=== PATIENT | female | born 1950 | race Caucasian/White ===

== ENCOUNTER 2020-05-02 13:56 | Outpatient (CLI) | payer OTHER, SELFPAY ==
--- NOTE | ~2020-05-02 | XR_ITS ---
EXAMINATION: XR chest 2V DATE: 05/02/2020 14:22 INDICATION: Acute on chronic systolic diastolic heart failure TECHNIQUE: PA and lateral views of the chest were obtained. COMPARISON: Chest radiograph dated 09/13/2017 FINDINGS: Cardiomegaly with double density projecting over the right heart consistent with right atrial enlarge ment. Mild increased interstitial pattern in the bilateral lower lung zones consistent with mild pulm onary edema. No pleural effusion or pneumothorax. Mild thoracic spondylosis. IMPRESSION: 1. Congestive heart failure with cardiomegaly and mild pulmonary edema at the lung bases. Reviewed, dictated and finalized at location A. IMPRESSION: 1. Congestive heart failure with cardiomegaly and mild pulmonary edema at the l yao bases.
== END 2020-05-02 13:57 | disposition home or self-care (01) ==
PROVIDERS: PCP Nurse Practitioner Family; Visit Provider Nurse Practitioner Adult Health
DX: I50.33 Acute on chronic diastolic (congestive) heart failure (principal); J81.1 Chronic pulmonary edema
CPT/HCPCS: 71046

== ENCOUNTER 2020-05-08 11:51 | Outpatient (CLI) | payer OTHER, SELFPAY ==
[2020-05-08 12:37] LABS: Anion Gap 6 mmol/L (8-16); Blood Urea Nitrogen 42 mg/dL (7-18); Calcium 9.4 mg/dL (8.5-10.1); Carbon Dioxide 38 mmol/L (21-32); Chloride 87 mmol/L (98-108); Estimated Glomerular Filt Rate 29; Glucose 108 mg/dL (70-99); Osmolality Calculated 283 mOsm/kg (285-295); Potassium 3.4 mmol/L (3.5-5.1); Sodium 131 mmol/L (136-145)
== END 2020-05-08 11:52 | disposition home or self-care (01) ==
LOC: CHSLAB 11:52
PROVIDERS: PCP Nurse Practitioner Family; Visit Provider Nurse Practitioner Adult Health
DX: I50.33 Acute on chronic diastolic (congestive) heart failure (principal)
CPT/HCPCS: 36415; 80048

== ENCOUNTER 2020-07-04 14:31 | Outpatient (CLI) | payer OTHER, SELFPAY ==
[2020-07-04 15:18] LABS: Blood Urea Nitrogen 53 mg/dL (7-18); Calcium 9.6 mg/dL (8.5-10.1); Carbon Dioxide 33 mmol/L (21-32); Estimated Glomerular Filt Rate 28; Glucose 102 mg/dL (70-99)
[2020-07-04 15:28] LABS: Chloride 73 mmol/L (98-108); Potassium 3.9 mmol/L (3.5-5.1)
[2020-07-04 15:34] LABS: Anion Gap 8 mmol/L (8-16); Osmolality Calculated 252 mOsm/kg (285-295); Sodium 114 mmol/L (136-145)
== END 2020-07-04 14:32 | disposition home or self-care (01) ==
LOC: CHSLAB 14:33
PROVIDERS: PCP Nurse Practitioner Family; Visit Provider Nurse Practitioner Adult Health
DX: I50.32 Chronic diastolic (congestive) heart failure (principal)
CPT/HCPCS: 36415; 80048

== ENCOUNTER 2020-07-04 17:44 | Inpatient (IN) | payer OTHER, MEDICARE, SELFPAY ==
--- NOTE | ~2020-07-04 | XR_ITS ---
EXAMINATION: XR chest 2V DATE: 07/05/2020 14:11 INDICATION: Shortness of breath, congestive heart failure TECHNIQUE: Frontal and lateral views of the chest are obtained COMPARISON: 05/02/2020 FINDINGS: Cardiomegaly is noted. There is a mild diffuse interstitial pattern. There is no pleural ef fusion or pneumothorax. Multiple old right-sided rib fractures are noted. There is mild thoracic spon dylosis. IMPRESSION: 1. Cardiomegaly with mild pulmonary edema. Reviewed, dictated and finalized at location A.
[2020-07-04 19:21] VITALS: BP 85/47; PULSE 62; RESP 17; TEMP 36.9; O2SAT 94
--- NOTE | 2020-07-04 19:42 | ED.RECABL ---
HPI - Recheck/Abnormal Lab/Rx General Chief Complaint: Recheck/Abnormal Lab/Rx Stated Complaint: LOW POTASSIUM LEVEL Time Seen by Provider: 07/04/20 19:27 History of Present Illness HPI narrative: 70 yo female w/ h/o CHF, COPD, A-fib presents to the ED from home for abnormal labs. She had routine labs dne earlier today and was called at [facility] and told to come in. She reports that she was told her potassium was low. On review of the chart her potassium was normal, but her sodium was 119. She reports that she has been more fatigued recently. She has also had poor appetite. She has chronic SOB. No recent medicaiton changes. Related Data Home Medications Medication Instructions Recorded Confirmed apixaban 5 mg tablet 5 mg PO BID 08/15/19 03/27/20 aspirin 81 mg tablet,delayed 81 mg PO DAILY 08/15/19 03/27/20 release ergocalciferol (vitamin D2) 1,250 50,000 unit PO WEEKLY 08/15/19 03/27/20 mcg (50,000 unit) capsule furosemide 40 mg tablet 40 mg PO BID 08/15/19 03/27/20 lisinopril 40 mg tablet 40 mg PO DAILY 08/15/19 03/27/20 omeprazole 20 mg capsule,delayed 20 mg PO DAILY 08/15/19 03/27/20 release rosuvastatin 40 mg tablet 40 mg PO DAILY 08/15/19 03/27/20 Allergies Allergy/AdvReac Type Severity Reaction Status Date / Time codeine Allergy Intermediate Verified 09/22/17 09:01 iron Allergy Intermediate Verified 08/20/18 10:38 Review of Systems Review of Systems: All systems reviewed & are unremarkable except as noted in HPI and below Constitutional: Constitutional: Reports fatigue and Denies fever(s) Cardiovascular: Cardiovascular: Denies chest pain Respiratory: Respiratory: Reports dyspnea Gastrointestinal: Gastrointestinal: Denies abdominal pain and Reports nausea Genitourinary: Genitourinary: Denies dysuria Neurologic: Reports weakness PMFSH Past Medical History Medical History (Updated 07/04/20 @ 20:54 by Kulwinder Solorzano MD) Atrial fibrillation CHF (congestive heart failure) COPD (chronic obstructive pulmonary disease) HTN (hypertension) Hyperlipemia Overweight Psoriasis Sleep apnea Tobacco dependence Surgical History Surgical History Hx of cholecystectomy Hx of hysterectomy Hx of tonsillectomy Family History Family History Mother Family history of chronic obstructive pulmonary disease Other Family history of arthritis Family history of heart disease in male family member before age 55 Hypertension Social History Social History Smoking status: Current every day smoker Alcohol intake: current Exam Const: General: no acute distress, alert and ill appearing chronically Orientation/consciousness: patient oriented x3 HENMT: Head: normal to inspection Eyes: Pupils: Equal, round and reactive pupils present Resp: Effort & Inspection: normal respiratory effort Auscultation: rhonchi Cardio: Rate: regular rate Rhythm: abnormal rhythm irregularly irregular GI: Inspection: non-distended Other: soft, nontender Skin: General skin exam: normal color Neuro: General: patient oriented x3, moves all extremities, no focal motor deficits and CN's II-XI intact bilaterally Speech: normal speech Extrem: General: edema (1 + BLE) Course Vital Signs Vital signs: Vital Signs Temperature 36.9 C 07/04/20 19:21 Pulse Rate 62 07/04/20 19:21 Respiratory Rate 17 07/04/20 19:21 Blood Pressure 85/47 L 07/04/20 19:21 Pulse Oximetry 94 07/04/20 19:21 Temperature 36.9 C 07/04/20 19:21 Pulse Rate 62 07/04/20 19:21 Respiratory Rate 17 07/04/20 19:21 Blood Pressure 85/47 L 07/04/20 19:21 Pulse Oximetry 94 07/04/20 19:21 MDM - Recheck/Abnormal Lab/Rx MDM Narrative Medical decision making narrative: Hyponatremia versus lab error. Maybe overdiuresis. She has severe and slightly wors
[2020-07-04 19:56] LABS: Basophils Percent Auto 0.3 % (0.2-1.2); Eosinophils Absolute Auto 0.1 K/mm3 (0-0.3); Eosinophils Percent Auto 0.7 % (0-4.4); Immature Granulocyte Absolute 0.06 K/mm3 (0.00-0.031); Immature Granulocyte Percent A 0.4 % (0-0.5); Lymphocytes Absolute Auto 2.32 K/mm3 (0.9-3.2); Lymphocytes Percent Auto 17.1 % (18.3-44.2); Mean Corpuscular HGB Conc 36.1 g/dl (32-36); Mean Corpuscular Hemoglobin 30.7 pg (26-34); Mean Corpuscular Volume 84.9 fl (80-100); Mean Platelet Volume 9.8 fl (7.4-10.4); Monocytes Absolute Auto 0.8 K/mm3 (0.1-0.6); Monocytes Percent Auto 5.7 % (2.6-8.5); Neutrophils Absolute Auto 10.3 K/mm3 (1.3-6.7); Neutrophils Percent Auto 75.8 % (45.5-73.1); Platelet Count Result 284 k/mm3 (150-375); Red Blood Count 4.24 M/mm3 (4.2-5.4); Red Cell Distribution Width 13.7 % (11.5-14.5); White Blood Count 13.6 K/mm3 (4.5-10.0)
[2020-07-04 20:09] LABS: Alanine Aminotransferase 15 U/L (4-35); Albumin Level 4.7 g/dL (3.5-5.1); Alkaline Phosphatase 175 U/L (38-126); Anion Gap 12 mmol/L (8-16); Aspartate Amino Transferase 20 U/L (14-36); Bilirubin,Total 0.9 mg/dL (0.2-1.3); Blood Urea Nitrogen 56 mg/dL (7-17); Calcium 9.6 mg/dL (8.4-10.2); Carbon Dioxide 37 mmol/L (22-30); Chloride 64 mmol/L (98-107); Estimated CRCL calculation 28 ml/min; Estimated Glomerular Filt Rate 30; Glucose 93 mg/dL (65-105); Potassium 3.4 mmol/L (3.4-5.0); Sodium 113 mmol/L (137-145)
[2020-07-04 20:11] LABS: INR 1.2; Prothrombin Time 15.1 Seconds (11.1-14.7)
[2020-07-04 20:12] LABS: Partial Thromboplastin Time 36.5 SECONDS (22.3-36.8)
[2020-07-04 21:04] LABS: Amorphous Sediment Urine Few; Bacteria Urine Trace /hpf; Mucus Urine Rare /lpf; RBC Urine 0-2 /hpf (0-2); Squamous Epithelial Cell Urine Few /hpf (Few); WBC Urine 0-3 /hpf
[2020-07-04 21:05] LABS: Add Urine Microscopic? YES; Appearance Urine Clear (Clear); Bilirubin Urine Negative (Negative); Blood Urine Negative (Negative); Color Urine Yellow (Yellow); Glucose Urine UA Negative (Negative); Ketones Urine Negative (Negative); Leukocyte Esterase Ur Negative LEU/UL (Negative); Nitrate Urine Negative (Negative); Protein Urine Negative (Negative); Specific Grav Ur 1.009 (1.001-1.035); Urobilinogen Urine Negative mg/dL (<2.0)
[2020-07-04] MEDS: SODIUM CHLORIDE 3% 500 ML 30 ML IV CONT (21:08)
[2020-07-04] MEDS: SODIUM CHLORIDE 0.9% IV 500 ML 999 ML IV CONT (21:14)
--- NOTE | 2020-07-04 22:13 | PM.IMHP ---
H&P: HPI History of Present Illness Date/Time: 07/04/20 22:13 Chief complaint: Hyponatremia Narrative: This is a pleasant 70 year old female with known CHF, paroxysmal atrial fibrillation on eliquis, and COPD among other comorbidities who presented to the hospital secondary to abnormal labs. The patient was called by her PCP after routine labs demonstrated a low sodium and was sent to our ER for further care. She reports that she has felt very tired recently. She denies any seizure activity, passing out, or other new symptoms at this time. She has been on Lasix for a long time and reports that several months ago her dose was changed from once a day to twice a day. She denies any recent medication changes or new medications. She also denies any previous history of signficant hyponatremia. She reports drinking large amounts of water daily. The patient was found to have a serum sodium of 113 mmol/dl tonight. She was started on hypertonic saline by ER provider. She denies any fever, cough, chills, headache, chest pain, abdominal pain, dysuria, hematuria, vomiting, diarrhea, or focal neurological symptoms. Review of Systems Review of Systems: All systems reviewed & are unremarkable except as noted in HPI and below PMFSH Past Medical History Medical History Atrial fibrillation CHF (congestive heart failure) COPD (chronic obstructive pulmonary disease) HTN (hypertension) Hyperlipemia Overweight Psoriasis Sleep apnea Tobacco dependence Surgical History Surgical History Hx of cholecystectomy Hx of hysterectomy Hx of tonsillectomy Family History Family History Mother Family history of chronic obstructive pulmonary disease Other Family history of arthritis Family history of heart disease in male family member before age 55 Hypertension Social History Social History Years smoked: 53 Smoking status: Current every day smoker Alcohol intake: current Gender identity (if verbalized by the patient): Female Spiritual care concerns: No Meds Home Medications and Allergies Home Medications Medication Instructions Recorded Confirmed Type apixaban 5 mg tablet 5 mg PO BID 08/15/19 07/04/20 History aspirin 81 mg tablet,delayed 81 mg PO DAILY 08/15/19 07/04/20 History release ergocalciferol (vitamin D2) 1,250 50,000 unit PO WEEKLY 08/15/19 07/04/20 History mcg (50,000 unit) capsule furosemide 40 mg tablet 40 mg PO BID 08/15/19 07/04/20 History lisinopril 40 mg tablet 20 mg PO DAILY 08/15/19 07/04/20 History omeprazole 20 mg capsule,delayed 20 mg PO DAILY 08/15/19 07/04/20 History release rosuvastatin 40 mg tablet 40 mg PO DAILY 08/15/19 07/04/20 History fluticasone propionate 50 1 spray NASAL DAILY #9.9 ml 03/27/20 07/04/20 Rx mcg/actuation nasal spray,suspension albuterol sulfate 2.5 mg INHALATION Q4-6H PRN #30 ml 03/28/20 07/04/20 Rx budesonide 0.5 mg/2 mL suspension 0.5 mg INHALATION BID #120 ml 03/28/20 07/04/20 Rx for nebulization formoterol fumarate 20 mcg/2 mL 2 ml INHALATION BID #120 ml 03/28/20 07/04/20 Rx solution for nebulization albuterol sulfate 90 mcg/actuation 1 inhalation INHALATION Q4H PRN 04/20/20 07/04/20 Rx aerosol inhaler #6.7 gm benzonatate 200 mg capsule 200 mg PO BID PRN #20 cap 04/25/20 07/04/20 Rx fexofenadine 60 mg tablet 60 mg PO Q12H #60 tablet 04/25/20 07/04/20 Rx colchicine 0.6 mg capsule 0.6 mg PO .PRN PRN #10 cap 05/01/20 07/04/20 Rx montelukast 10 mg tablet 10 mg PO DAILY #90 tablet 06/05/20 07/04/20 Rx ascorbate calcium (vitamin C) 500 mg PO DAILY 07/04/20 07/04/20 History nebivolol 40 mg PO DAILY 07/04/20 07/04/20 History potassium chloride 20 meq PO DAILY 07/04/20 07/04/20 History Allergies Allergy/AdvReac Type Severity Reaction Status D
--- NOTE | 2020-07-04 23:00 | ADMGEN ---
This patient, Flakita Palomares, was admitted to 3 Medical Room 340-01. Patient/family oriented to hospital policies and general routines including ID bracelet, bed and alarms, visiting hours, pain management, procedures, bathroom and other care routines, personal items, smoking policy, room service/diet, and visiting hours. Valuables list has been completed. Information on how to activate the Rapid Response Team has been discussed. Patient/Family are encouraged to report perceived risks to care and to ask questions if they do not understand what they are told or what they should do.
[2020-07-04 23:07] VITALS: BMI 34.9
[2020-07-04 23:10] VITALS: BP 101/53; PULSE 78; RESP 18; TEMP 36.5; O2SAT 95; BMI 34.1
[2020-07-05] VITALS (11 sets, daily range): BP systolic 88–106; BP diastolic 45–60; PULSE 53–68; RESP 16–18; TEMP 35.8–36.4; O2SAT 93–97
[2020-07-05 00:59] LABS: Anion Gap 8 mmol/L (8-16); Blood Urea Nitrogen 53 mg/dL (7-17); Carbon Dioxide 36 mmol/L (22-30); Chloride 70 mmol/L (98-107); Estimated CRCL calculation 27 ml/min; Estimated Glomerular Filt Rate 30; Glucose 90 mg/dL (65-105); Potassium 2.9 mmol/L (3.4-5.0); Sodium 114 mmol/L (137-145)
[2020-07-05 04:23] LABS: Basophils Percent Auto 0.4 % (0.2-1.2); Eosinophils Absolute Auto 0.1 K/mm3 (0-0.3); Eosinophils Percent Auto 1.3 % (0-4.4); Hematocrit 32.8 % (37.0-47.0); Hemoglobin 11.8 g/dL (12.0-15.0); Immature Granulocyte Absolute 0.04 K/mm3 (0.00-0.031); Immature Granulocyte Percent A 0.4 % (0-0.5); Lymphocytes Absolute Auto 2.48 K/mm3 (0.9-3.2); Lymphocytes Percent Auto 23.5 % (18.3-44.2); Mean Corpuscular Hemoglobin 30.5 pg (26-34); Mean Corpuscular Volume 84.8 fl (80-100); Mean Platelet Volume 10.1 fl (7.4-10.4); Monocytes Absolute Auto 0.8 K/mm3 (0.1-0.6); Monocytes Percent Auto 7.2 % (2.6-8.5); Neutrophils Absolute Auto 7.1 K/mm3 (1.3-6.7); Neutrophils Percent Auto 67.2 % (45.5-73.1); Platelet Count Result 269 k/mm3 (150-375); Red Blood Count 3.87 M/mm3 (4.2-5.4); Red Cell Distribution Width 13.7 % (11.5-14.5); White Blood Count 10.6 K/mm3 (4.5-10.0)
[2020-07-05 05:00] LABS: Anion Gap 8 mmol/L (8-16); Blood Urea Nitrogen 55 mg/dL (7-17); Calcium 8.9 mg/dL (8.4-10.2); Carbon Dioxide 35 mmol/L (22-30); Chloride 73 mmol/L (98-107); Estimated CRCL calculation 29 ml/min; Estimated Glomerular Filt Rate 32; Glucose 88 mg/dL (65-105); Potassium 2.8 mmol/L (3.4-5.0); Sodium 116 mmol/L (137-145)
--- NOTE | 2020-07-05 05:30 | PC.NURSE ---
Phone call to pharmacist to confirm compatibility of 3% sodium and 40 meq potassium chloride. I was able to confirm that they are compatible and are able to run concurrently together at the rates prescribed.
[2020-07-05] MEDS: BUDESONIDE RESPULE NEB 0.5 MG/2 ML AMP INHALATION ×2 (07:38→22:41)
[2020-07-05] MEDS: ASCORBIC ACID 500 MG TABLET PO (09:47)
[2020-07-05] MEDS: APIXABAN 5 MG TABLET PO ×2 (09:47→16:19)
[2020-07-05] MEDS: MONTELUKAST SODIUM 10 MG TABLET PO (09:47)
[2020-07-05] MEDS: FLUTICASONE PROPIONATE 0.05% NA SPR 16 GM BTL (*BKC) 1 SPRAY NASAL (09:47)
[2020-07-05] MEDS: PANTOPRAZOLE SOD SESQUIHYDRATE 20 MG TAB PO (09:47)
[2020-07-05] MEDS: lisinopriL 20 MG TABLET PO (09:47)
[2020-07-05] MEDS: ASPIRIN 81 MG ENTERIC TABLET PO (09:47)
[2020-07-05] MEDS: LORATADINE 5 MG TABLET PO ×2 (09:47→20:44)
[2020-07-05 09:50] LABS: Anion Gap 7 mmol/L (8-16); Blood Urea Nitrogen 57 mg/dL (7-17); Carbon Dioxide 36 mmol/L (22-30); Chloride 76 mmol/L (98-107); Estimated CRCL calculation 29 ml/min; Estimated Glomerular Filt Rate 32; Glucose 110 mg/dL (65-105); Potassium 3.6 mmol/L (3.4-5.0); Sodium 119 mmol/L (137-145)
[2020-07-05] MEDS: NEBIVOLOL HCL 5 MG TABLET 40 MG PO (09:51)
[2020-07-05] MEDS: ROSUVASTATIN 10 MG TABLET 40 MG PO (09:51)
--- NOTE | 2020-07-05 12:33 | PM.IMPN ---
Progress Note: A&P Assessment and Plan (1) Acute hyponatremia: Code(s): E87.1 - Hypo-osmolality and hyponatremia Status: Acute Assessment and Plan: Acute isotonic hyponatremia. Patient on Lasix chronically. Cr not much different from baseline but BUN/Cr ratio >20 to suggest dehydration. COuld be related to her lung disease. Consider neoplasm given her hx. No focal weakness to suggest REHAB SPEC etiology. Treated with fluid restriction and 3% saline. Sodium has improved slowly 120. No urine Na but UA showing SG 1.009 - related to diuretics?. Diuretics on hold. Continue to check BMP Q4H to ensure slow gradual rise in Na level. Check CXR and consider CT chest given her weight loss. Nephrology consulted and appreciate their help. CXR showing cardiomegaly with mild pulmonary edema. Remaiins of room air. Not on IV fluids. Monitor for now. Lasix when able. (2) Leukocytosis: Qualifiers: Leukocytosis type: unspecified Qualified Code(s): D72.829 - Elevated white blood cell count, unspecified Code(s): D72.829 - Elevated white blood cell count, unspecified Status: Acute Assessment and Plan: WBC mildly elevated at 13.6 but better on repeat. Continue to monitor CBCd. (3) COPD (chronic obstructive pulmonary disease): Qualifiers: COPD type: unspecified COPD Qualified Code(s): J44.9 - Chronic obstructive pulmonary disease, unspecified Code(s): J44.9 - Chronic obstructive pulmonary disease, unspecified Status: Chronic Assessment and Plan: Few expiratory rhonchi. Remains on room air. Continue bronchodilators. (4) HTN (hypertension): Qualifiers: Hypertension type: unspecified Qualified Code(s): I10 - Essential (primary) hypertension Code(s): I10 - Essential (primary) hypertension Status: Chronic Assessment and Plan: BP has been soft. Tristan contnue Bystolic but hold Lisinopril. She may be dehydrated from the Lasix. Monitor blood pressure. (5) Hyperlipemia: Qualifiers: Hyperlipidemia type: unspecified Qualified Code(s): E78.5 - Hyperlipidemia, unspecified Code(s): E78.5 - Hyperlipidemia, unspecified Status: Chronic Assessment and Plan: LFTs okay. Continue Crestor. (6) CHF (congestive heart failure): Qualifiers: Heart failure chronicity: chronic Heart failure type: unspecified Qualified Code(s): I50.9 - Heart failure, unspecified Code(s): I50.9 - Heart failure, unspecified Status: Chronic Assessment and Plan: Appears euvolemic clinically. On Lasix at home 40mg BID. Continue to monitor fluid status. Hold diuretics secondary to hyponatremia. Resume when able. (7) Atrial fibrillation: Qualifiers: Atrial fibrillation type: paroxysmal Qualified Code(s): I48.0 - Paroxysmal atrial fibrillation Code(s): I48.91 - Unspecified atrial fibrillation Status: Chronic Assessment and Plan: Rate controlled. Continue Bystolic. Continue Eliquis. (8) Tobacco dependence: Code(s): F17.200 - Nicotine dependence, unspecified, uncomplicated Status: Acute Assessment and Plan: Patient educated about the benefits of smoking cessation (9) DVT prophylaxis: Code(s): Z29.9 - Encounter for prophylactic measures, unspecified Status: Acute Assessment and Plan: Eliquis Subjective Date/time seen: 07/05/20 12:33 Interval history: Date of service 07/05 70yo female with COPD, CHF and AFib here for abnormal labs noted in the outpatient with a Na of 119. In the ED, her sodium was 113. Slept okay last night. Up walkiing to the BR and in the room today. Denies weakness. Does not feel confused. Still smokes 4 cig/day. Cough productive of daly sputum. No n/v. No CP. No hemoptysis. Exam Narrative: Exam Narrative: AF 97.6 106/45 67 18 93% ra Gen - NARD lying semi
[2020-07-05 12:41] LABS: Anion Gap 8 mmol/L (8-16); Blood Urea Nitrogen 52 mg/dL (7-17); Calcium 9.2 mg/dL (8.4-10.2); Carbon Dioxide 35 mmol/L (22-30); Chloride 77 mmol/L (98-107); Estimated CRCL calculation 29 ml/min; Estimated Glomerular Filt Rate 32; Glucose 111 mg/dL (65-105); Potassium 3.7 mmol/L (3.4-5.0); Sodium 120 mmol/L (137-145)
--- NOTE | 2020-07-05 13:26 | PCNSR ---
On 07/05/20, the student, Netta Moore, provided care and completed [facility] documentation on this patient. I have reviewed the student's documentation and agree with the findings.
--- NOTE | 2020-07-05 17:26 | PM.CNNEP ---
Assessment and Plan Assessment and plan (1) Hyponatremia: Code(s): E87.1 - Hypo-osmolality and hyponatremia Status: Acute Assessment and Plan: apparently an acute issue thought to be secondary to diuretics (lasix) s/p 3% saline and on fluid restriction goal of therapy is a change of 6 - 9mmol/L over a 24 hours period of time follow repeat sodium levels to complete work-up - check serum/urine osmo, cortisol, TSH, SPE and UPE (2) Chronic kidney disease, stage 3: Code(s): N18.30 - Chronic kidney disease, stage 3 unspecified Status: Acute Assessment and Plan: creatinine seems to run ~ 1.5 - 1.8mg/dl presumably due to HTN, CHF, need for diuretics follow the trend (3) COPD (chronic obstructive pulmonary disease): Qualifiers: COPD type: unspecified COPD Qualified Code(s): J44.9 - Chronic obstructive pulmonary disease, unspecified Code(s): J44.9 - Chronic obstructive pulmonary disease, unspecified Status: Chronic Assessment and Plan: known history and continue to smoke continue bronchodilators supportive therap (4) HTN (hypertension): Qualifiers: Hypertension type: unspecified Qualified Code(s): I10 - Essential (primary) hypertension Code(s): I10 - Essential (primary) hypertension Status: Chronic Assessment and Plan: running on the low side BP medications on hold follow trend (5) CHF (congestive heart failure): Qualifiers: Heart failure chronicity: chronic Heart failure type: unspecified Qualified Code(s): I50.9 - Heart failure, unspecified Code(s): I50.9 - Heart failure, unspecified Status: Chronic Assessment and Plan: appears compensated/euvolemic follow trend Will continue to follow. History of Present Illness Reason for Consult Consult date: 07/05/20 Reason for consult: hyponatremia Chief Complaint Chief complaint: Hyponatremia History of Present Illness Narrative: The patient is a 70 year old female with a past medical history as outlined below who presented to [facility] ER for evaluation of abnormal labs. The patient was called by her PCP after routine labs demonstrated a low sodium and was directed to come to the hospital for further evaluation. Aside from the low sodium, her only other complaint was that of significant fatigue and weakness. She reports no neurological symptoms, seizure activity, syncope, tremor...etc. recently. She does report that several months ago her lasix was changed from once a day to twice a day. She denies any recent medication changes or new medications. She also reports drinking large amounts of water daily. She denies any fever, cough, chills, headache, chest pain, abdominal pain, dysuria, hematuria, vomiting, diarrhea, or focal neurological symptoms. Workup and evaluation in the emergency room demonstrated the patient to be hemodynamically stable although her blood pressure was little bit on the soft side. Routine blood test confirmed the presence of her hyponatremia with a sodium level 113 with no other significant findings other than a mild leukocytosis. She was given some normal saline and subsequent started on 3% saline by the ER provider in mid to the hospital for further evaluation and therapy. Since her admission, her sodium level has been slowly rising and and has since been discontinued off the 3% saline. She is currently on a fluid restriction and remains otherwise asymptomatic at the time of my visit. Renal consultation was requested due to her acute hyponatremia. From review of her records, her sodium level has fluctuated from 131-140 in the last few months up until this hospitalization/admission. She has never had a history or problems with hyponatremia in the past and she otherwise gives no other complaints voiced. Her sodium level has improved with interventions to date and she otherwise appears
[2020-07-05 17:33] LABS: Anion Gap 8 mmol/L (8-16); Blood Urea Nitrogen 51 mg/dL (7-17); Calcium 9.6 mg/dL (8.4-10.2); Carbon Dioxide 35 mmol/L (22-30); Chloride 78 mmol/L (98-107); Estimated CRCL calculation 31 ml/min; Estimated Glomerular Filt Rate 34; Glucose 98 mg/dL (65-105); Potassium 3.7 mmol/L (3.4-5.0); Sodium 121 mmol/L (137-145)
[2020-07-05 21:04] LABS: Anion Gap 8 mmol/L (8-16); Blood Urea Nitrogen 48 mg/dL (7-17); Calcium 9.2 mg/dL (8.4-10.2); Carbon Dioxide 33 mmol/L (22-30); Chloride 78 mmol/L (98-107); Estimated CRCL calculation 33 ml/min; Estimated Glomerular Filt Rate 37; Glucose 95 mg/dL (65-105); Potassium 3.8 mmol/L (3.4-5.0); Sodium 119 mmol/L (137-145)
[2020-07-06] VITALS (13 sets, daily range): BP systolic 90–186; BP diastolic 50–98; PULSE 50–78; RESP 14–18; TEMP 36.2–36.8; O2SAT 94–100
[2020-07-06 01:19] LABS: Creatinine Urine 46.4 mg/dL; Total Protein Urine Random 13 mg/dL
[2020-07-06 01:20] LABS: Sodium 120 mmol/L (137-145)
[2020-07-06 01:47] LABS: Sodium Urine Random 33 meq/L
[2020-07-06 05:57] LABS: Basophils Absolute Auto 0.1 K/mm3 (0.0-0.1); Basophils Percent Auto 0.5 % (0.2-1.2); Eosinophils Absolute Auto 0.2 K/mm3 (0-0.3); Eosinophils Percent Auto 1.7 % (0-4.4); Hematocrit 32.6 % (37.0-47.0); Hemoglobin 11.7 g/dL (12.0-15.0); Immature Granulocyte Absolute 0.02 K/mm3 (0.00-0.031); Immature Granulocyte Percent A 0.2 % (0-0.5); Lymphocytes Absolute Auto 2.44 K/mm3 (0.9-3.2); Lymphocytes Percent Auto 23.9 % (18.3-44.2); Mean Corpuscular HGB Conc 35.9 g/dl (32-36); Mean Corpuscular Hemoglobin 30.7 pg (26-34); Mean Corpuscular Volume 85.6 fl (80-100); Mean Platelet Volume 9.8 fl (7.4-10.4); Monocytes Absolute Auto 0.7 K/mm3 (0.1-0.6); Monocytes Percent Auto 6.6 % (2.6-8.5); Neutrophils Absolute Auto 6.9 K/mm3 (1.3-6.7); Neutrophils Percent Auto 67.1 % (45.5-73.1); Platelet Count Result 271 k/mm3 (150-375); Red Blood Count 3.81 M/mm3 (4.2-5.4); Red Cell Distribution Width 13.8 % (11.5-14.5); White Blood Count 10.2 K/mm3 (4.5-10.0)
[2020-07-06 06:11] LABS: Albumin Level 4.1 g/dL (3.5-5.1); Anion Gap 8 mmol/L (8-16); Blood Urea Nitrogen 46 mg/dL (7-17); Calcium 9.3 mg/dL (8.4-10.2); Carbon Dioxide 32 mmol/L (22-30); Chloride 81 mmol/L (98-107); Estimated CRCL calculation 36 ml/min; Estimated Glomerular Filt Rate 41; Glucose 89 mg/dL (65-105); Magnesium 2.2 mg/dL (1.6-2.3); Phosphorus 3.5 mg/dL (2.5-4.5); Potassium 3.3 mmol/L (3.4-5.0); Sodium 121 mmol/L (137-145)
[2020-07-06 07:16] LABS: Thyroid Stimulating Hormone Reflex 0.807 uIU/mL (0.465-4.68)
[2020-07-06] MEDS: POTASSIUM CHLORIDE 20 MEQ TABLET 40 MEQ PO (09:04)
[2020-07-06] MEDS: LORATADINE 5 MG TABLET PO ×2 (09:06→21:13)
[2020-07-06] MEDS: FLUTICASONE PROPIONATE 0.05% NA SPR 16 GM BTL (*BKC) 1 SPRAY NASAL (09:06)
[2020-07-06] MEDS: MONTELUKAST SODIUM 10 MG TABLET PO (09:06)
[2020-07-06] MEDS: ASPIRIN 81 MG ENTERIC TABLET PO (09:06)
[2020-07-06] MEDS: ROSUVASTATIN 10 MG TABLET 40 MG PO (09:07)
[2020-07-06] MEDS: APIXABAN 5 MG TABLET PO ×2 (09:07→17:22)
[2020-07-06] MEDS: NEBIVOLOL HCL 5 MG TABLET 20 MG PO (09:07)
[2020-07-06] MEDS: PANTOPRAZOLE SOD SESQUIHYDRATE 20 MG TAB PO (09:07)
[2020-07-06] MEDS: ASCORBIC ACID 500 MG TABLET PO (09:07)
[2020-07-06] MEDS: BUDESONIDE RESPULE NEB 0.5 MG/2 ML AMP INHALATION ×2 (09:29→19:02)
[2020-07-06 13:11] LABS: Sodium 121 mmol/L (137-145)
[2020-07-06] MEDS: SODIUM CHLORIDE 3% 240 ML 80 ML IV CONT (15:42)
--- NOTE | 2020-07-06 15:49 | P.PNNP_ITS ---
Progress Note: A&P Assessment and Plan (1) Hyponatremia: Code(s): E87.1 - Hypo-osmolality and hyponatremia Status: Acute Assessment and Plan: * apparently an acute issue * thought to be secondary to diuretics (lasix) - other risk factors include -- known COPD -- ongoing smoking -- poor oral intake [employer] -- nausea * s/p 3% saline on admission and on fluid restriction * goal of therapy is a change of 6 - 9mmol/L over a 24 hours period of time (which has been maintained) * since sodium appears to have stalled - will give another round of 3% saline * urine lytes more suggestive of volume depletion though * follow repeat sodium levels * TSH, cortisol, CXR results noted * follow-up check serum/urine osmo, SPE and UPE (2) Chronic kidney disease, stage 3: Code(s): N18.30 - Chronic kidney disease, stage 3 unspecified Status: Acute Assessment and Plan: * creatinine seems to run ~ 1.5 - 1.8mg/dl * presumably due to HTN, CHF, need for diuretics * follow the trend (3) COPD (chronic obstructive pulmonary disease): Qualifiers: COPD type: unspecified COPD Qualified Code(s): J44.9 - Chronic obstructive pulmonary disease, unspecified Code(s): J44.9 - Chronic obstructive pulmonary disease, unspecified Status: Chronic Assessment and Plan: * known history and continue to smoke * continue bronchodilators * supportive therapy and smoking cessation education (4) HTN (hypertension): Qualifiers: Hypertension type: unspecified Qualified Code(s): I10 - Essential (primary) hypertension Code(s): I10 - Essential (primary) hypertension Status: Chronic Assessment and Plan: * running on the low side * BP medications on hold * follow trend (5) CHF (congestive heart failure): Qualifiers: Heart failure chronicity: chronic Heart failure type: unspecified Qualified Code(s): I50.9 - Heart failure, unspecified Code(s): I50.9 - Heart failure, unspecified Status: Chronic Assessment and Plan: * appears compensated/euvolemic * follow trend Will continue to follow. Subjective Date/time seen: 07/06/20 15:49 Appears to be doing reasonably well; sodium has improved (and not overcorrected) but seems to have plateaued ~ 121 mmol/L; eating and drinking okay (reportedly not prior to admission and had nausea as well); no apparent idstress voiced; no events overnight or earlier this AM. Exam Narrative: Exam Narrative: General: WD/WN female in NAD Heart: normal S1 and S2; no rub Lungs: clear to auscultation Abdomen: soft, nontender, nondistended, positive bowel sounds Extremities: no cyanosis or clubbing; no edema Skin: warm and dry Objective Data Vital Signs Vital Signs: Vital Signs Temp Pulse Resp BP Pulse Ox 07/06/20 14:00 36.2 C L 68 18 104/50 L 100 07/06/20 12:00 50 L 07/06/20 10:54 55 L 90/58 L 07/06/20 09:07 56 L 07/06/20 08:00 56 L 07/06/20 07:42 62 100/56 L 07/06/20 05:52 36.8 C 78 14 186/98 H 98 07/06/20 04:00 60 07/06/20 00:00 67 07/05/20 22:43 53 L 18 07/05/20 20:00 57 L 07/05/20 19:49 36.2 C L 58 L 16 88/48 L 97 07/05/20 16:00 65 Intake/Output
--- NOTE | 2020-07-06 15:49 | PM.PNNEP ---
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 s/p 3% saline on admission and on fluid restriction goal of therapy is a change of 6 - 9mmol/L over a 24 hours period of time (which has been maintained) since sodium appears to have stalled - will give another round of 3% saline urine lytes more suggestive of volume depletion though follow repeat sodium levels TSH, cortisol, CXR results noted follow-up check serum/urine osmo, SPE and UPE (2) Chronic kidney disease, stage 3: Code(s): N18.30 - Chronic kidney disease, stage 3 unspecified Status: Acute Assessment and Plan: creatinine seems to run ~ 1.5 - 1.8mg/dl presumably due to HTN, CHF, need for diuretics follow the trend (3) COPD (chronic obstructive pulmonary disease): Qualifiers: COPD type: unspecified COPD Qualified Code(s): J44.9 - Chronic obstructive pulmonary disease, unspecified Code(s): J44.9 - Chronic obstructive pulmonary disease, unspecified Status: Chronic Assessment and Plan: known history and continue to smoke continue bronchodilators supportive therapy and smoking cessation education (4) HTN (hypertension): Qualifiers: Hypertension type: unspecified Qualified Code(s): I10 - Essential (primary) hypertension Code(s): I10 - Essential (primary) hypertension Status: Chronic Assessment and Plan: running on the low side BP medications on hold follow trend (5) CHF (congestive heart failure): Qualifiers: Heart failure chronicity: chronic Heart failure type: unspecified Qualified Code(s): I50.9 - Heart failure, unspecified Code(s): I50.9 - Heart failure, unspecified Status: Chronic Assessment and Plan: appears compensated/euvolemic follow trend Will continue to follow. Subjective Date/time seen: 07/06/20 15:49 Appears to be doing reasonably well; sodium has improved (and not overcorrected) but seems to have plateaued ~ 121 mmol/L; eating and drinking okay (reportedly not prior to admission and had nausea as well); no apparent idstress voiced; no events overnight or earlier this AM. Exam Narrative: Exam Narrative: General: WD/WN female in NAD Heart: normal S1 and S2; no rub Lungs: clear to auscultation Abdomen: soft, nontender, nondistended, positive bowel sounds Extremities: no cyanosis or clubbing; no edema Skin: warm and dry Objective Data Vital Signs Vital Signs: Vital Signs Temp Pulse Resp BP Pulse Ox 07/06/20 14:00 36.2 C L 68 18 104/50 L 100 07/06/20 12:00 50 L 07/06/20 10:54 55 L 90/58 L 07/06/20 09:07 56 L 07/06/20 08:00 56 L 07/06/20 07:42 62 100/56 L 07/06/20 05:52 36.8 C 78 14 186/98 H 98 07/06/20 04:00 60 07/06/20 00:00 67 07/05/20 22:43 53 L 18 07/05/20 20:00 57 L 07/05/20 19:49 36.2 C L 58 L 16 88/48 L 97 07/05/20 16:00 65 Intake/Output Intake/Output: Intake & Output 07/03/20 07/04/20 07/05/20 07/06/20 23:59 23:59 23:59 23:59 Intake Total 500 1380 1310 Output Total 650 3550 Balance 500 730 -2240 Meds/Results Medications: Active Medications Generic Name Dose Route Start Last Admin Trade Name Freq PRN Reason Stop Dose Admin Acetaminophen 650 mg 07/04/20 22:06 Acetaminophen 325 Mg Tablet PO Q4H PRN Mild Pain (1-3) or Fever Albuterol 1 puff 07/05/20 05:12 Albuterol Sulfate (*Sp) Aerosol 1 Puff INHALATION Q4H PRN shortness of breath Apixaban 5 mg 07/05/20 09:00 07/06/20 09:07 A
--- NOTE | 2020-07-06 16:11 | PM.IMPN ---
Progress Note: A&P Assessment and Plan (1) Acute hyponatremia: Code(s): E87.1 - Hypo-osmolality and hyponatremia Status: Acute Assessment and Plan: Acute isotonic hyponatremia. Patient on Lasix chronically. Cr not much different from baseline but BUN/Cr ratio >20 to suggest dehydration. She has been having n/v and complains of lightheadedness to suggest she is volume depleted. Nausea also could be a waste collection driver of her hyponatremia itself. CXR showing cardiomegaly with mild pulmonary edema. 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 Treated with fluid restriction and 3% saline with Na level climbed to 121 but has stalled. Urine Na 33. Diuretics on hold. Repeat 3% saline infusion ordered. Nephrology consulted and appreciate their help. Continue to monitor sodium closely. (2) Leukocytosis: Qualifiers: Leukocytosis type: unspecified Qualified Code(s): D72.829 - Elevated white blood cell count, unspecified Code(s): D72.829 - Elevated white blood cell count, unspecified Status: Acute Assessment and Plan: WBC mildly elevated at 13.6 but better on repeat. Continue to monitor CBCd. (3) COPD (chronic obstructive pulmonary disease): Qualifiers: COPD type: unspecified COPD Qualified Code(s): J44.9 - Chronic obstructive pulmonary disease, unspecified Code(s): J44.9 - Chronic obstructive pulmonary disease, unspecified Status: Chronic Assessment and Plan: Few expiratory rhonchi. Remains on room air. Continue bronchodilators. (4) HTN (hypertension): Qualifiers: Hypertension type: unspecified Qualified Code(s): I10 - Essential (primary) hypertension Code(s): I10 - Essential (primary) hypertension Status: Chronic Assessment and Plan: BP remains soft. Lisinopril on hold. Bystolic cut to 20mg but still soft so will cut it back to 10mg. She may be dehydrated from the Lasix and the n/v prior to admission. Monitor blood pressure. (5) Hyperlipemia: Qualifiers: Hyperlipidemia type: unspecified Qualified Code(s): E78.5 - Hyperlipidemia, unspecified Code(s): E78.5 - Hyperlipidemia, unspecified Status: Chronic Assessment and Plan: LFTs okay. Continue Crestor. (6) CHF (congestive heart failure): Qualifiers: Heart failure chronicity: chronic Heart failure type: unspecified Qualified Code(s): I50.9 - Heart failure, unspecified Code(s): I50.9 - Heart failure, unspecified Status: Chronic Assessment and Plan: Pedal edema noted but could be chronic related to her being out of bed more. On Lasix at home 40mg BID. Continue to monitor fluid status. Lasix on hold secondary to hyponatremia. Resume when okay with nephrology and BP better. Negative fluid balance but not on diuretics. (7) Atrial fibrillation: Qualifiers: Atrial fibrillation type: paroxysmal Qualified Code(s): I48.0 - Paroxysmal atrial fibrillation Code(s): I48.91 - Unspecified atrial fibrillation Status: Chronic Assessment and Plan: Rate controlled. Continue Bystolic but lower dose due to soft BP. Continue Eliquis. Stop tele. (8) Tobacco dependence: Code(s): F17.200 - Nicotine dependence, unspecified, uncomplicated Status: Acute Assessment and Plan: Patient educated about the benefits of smoking cessation (9) DVT prophylaxis: Code(s): Z29.9 - Encounter for prophylactic measures, unspecified Status: Acute Assessment and Plan: Eliquis Subjective Date/time seen: 07/06/20 16:11 Interval history: Date of service 07/06 70yo female with COPD, CHF and AFib here for abnormal labs noted in the outpatient with a Na of 119. In the ED, her sodium was 113. She was feeling lightheaded over the past few days prior to admission. She was having n/v also for about 1 week before admission. Slept well las
[2020-07-06 20:16] LABS: Sodium 126 mmol/L (137-145)
[2020-07-07] VITALS (9 sets, daily range): BP systolic 99–114; BP diastolic 59–65; PULSE 58–73; RESP 12–18; TEMP 36.1–36.6; O2SAT 91–94
[2020-07-07 00:11] LABS: Sodium 124 mmol/L (137-145)
[2020-07-07 06:32] LABS: Albumin Level 4.2 g/dL (3.5-5.1); Anion Gap 10 mmol/L (8-16); Blood Urea Nitrogen 39 mg/dL (7-17); Calcium 9.7 mg/dL (8.4-10.2); Carbon Dioxide 30 mmol/L (22-30); Chloride 88 mmol/L (98-107); Estimated CRCL calculation 38 ml/min; Estimated Glomerular Filt Rate 45; Glucose 92 mg/dL (65-105); Magnesium 2.2 mg/dL (1.6-2.3); Phosphorus 3.5 mg/dL (2.5-4.5); Potassium 4.1 mmol/L (3.4-5.0); Sodium 128 mmol/L (137-145)
[2020-07-07] MEDS: FLUTICASONE PROPIONATE 0.05% NA SPR 16 GM BTL (*BKC) 1 SPRAY NASAL (09:30)
[2020-07-07] MEDS: ROSUVASTATIN 10 MG TABLET 40 MG PO (09:31)
[2020-07-07] MEDS: NEBIVOLOL HCL 5 MG TABLET 10 MG PO (09:31)
[2020-07-07] MEDS: MONTELUKAST SODIUM 10 MG TABLET PO (09:33)
[2020-07-07] MEDS: APIXABAN 5 MG TABLET PO ×2 (09:33→16:36)
[2020-07-07] MEDS: PANTOPRAZOLE SOD SESQUIHYDRATE 20 MG TAB PO (09:33)
[2020-07-07] MEDS: ASCORBIC ACID 500 MG TABLET PO (09:33)
[2020-07-07] MEDS: ASPIRIN 81 MG ENTERIC TABLET PO (09:33)
[2020-07-07] MEDS: BUDESONIDE RESPULE NEB 0.5 MG/2 ML AMP INHALATION ×2 (09:44→20:45)
[2020-07-07] MEDS: LORATADINE 5 MG TABLET PO ×2 (10:03→22:08)
--- NOTE | 2020-07-07 10:25 | P.PNNP_ITS ---
Progress Note: A&P Assessment and Plan (1) Hyponatremia: Code(s): E87.1 - Hypo-osmolality and hyponatremia Status: Acute Assessment and Plan: * apparently an acute issue * TSH okay. * Cortisol level is 11. Will check Cortrosyn stim test. * Chest x-ray shows no significant pulmonary process. 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 consider saline * s/p 3% saline on admission and on fluid restriction * Sodium level correcting well with the 3%. * see how the sodium level is this afternoon. This may continue to Correct since she is off her diuretics. (2) Chronic kidney disease, stage 3: Code(s): N18.30 - Chronic kidney disease, stage 3 unspecified Status: Acute Assessment and Plan: * creatinine seems to run ~ 1.5 - 1.8mg/dl * presumably due to HTN, CHF, need for diuretics * creatinine is improved (3) COPD (chronic obstructive pulmonary disease): Qualifiers: COPD type: unspecified COPD Qualified Code(s): J44.9 - Chronic obstructive pulmonary disease, unspecified Code(s): J44.9 - Chronic obstructive pulmonary disease, unspecified Status: Chronic Assessment and Plan: * known history and continue to smoke * continue bronchodilators * supportive therapy and smoking cessation education (4) HTN (hypertension): Qualifiers: Hypertension type: unspecified Qualified Code(s): I10 - Essential (primary) hypertension Code(s): I10 - Essential (primary) hypertension Status: Chronic Assessment and Plan: * running on the low side * BP medications on hold * follow trend (5) CHF (congestive heart failure): Qualifiers: Heart failure type: unspecified Heart failure chronicity: chronic Qualified Code(s): I50.9 - Heart failure, unspecified Code(s): I50.9 - Heart failure, unspecified Status: Chronic Assessment and Plan: * appears compensated/euvolemic * follow trend Subjective Date/time seen: 07/07/20 10:25 Interval history: Patient is alert and sitting at the side of the bed. She feels better eating well. On a fluid restriction Review of Systems Cardiovascular: Cardiovascular: Reports no additional cardiovascular complaints Respiratory: Respiratory: Reports no additional respiratory complaints Gastrointestinal: Gastrointestinal: Reports no additional gastrointestinal complaints Genitourinary: Genitourinary: Reports no additional female genitourinary complaints Exam Narrative: Exam Narrative: General: WD/WN female in NAD Heart: normal S1 and S2; no rub Lungs: clear bilaterally Abdomen: soft, nontender, nondistended, positive bowel sounds Extremities: no cyanosis or clubbing; no edema Skin: no rash Objective Data Vital Signs Vital Signs: Vital Signs - 24 hr 07/06/20 10:54 07/06/20 12:00 07/06/20 14:00 Temperature 36.2 C L Pulse Rate 55 L 50 L 68 Respiratory Rate 18 Blood Pressure 90/58 L 104/50 L Pulse Oximetry 100 07/06/20 16:00 07/06/20 19:03 07/06/20 19:08 Temperature
--- NOTE | 2020-07-07 10:25 | PM.PNNEP ---
Progress Note: A&P Assessment and Plan (1) Hyponatremia: Code(s): E87.1 - Hypo-osmolality and hyponatremia Status: Acute Assessment and Plan: apparently an acute issue TSH okay. Cortisol level is 11. Will check Cortrosyn stim test. Chest x-ray shows no significant pulmonary process. 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 consider saline s/p 3% saline on admission and on fluid restriction Sodium level correcting well with the 3%. see how the sodium level is this afternoon. This may continue to Correct since she is off her diuretics. (2) Chronic kidney disease, stage 3: Code(s): N18.30 - Chronic kidney disease, stage 3 unspecified Status: Acute Assessment and Plan: creatinine seems to run ~ 1.5 - 1.8mg/dl presumably due to HTN, CHF, need for diuretics creatinine is improved (3) COPD (chronic obstructive pulmonary disease): Qualifiers: COPD type: unspecified COPD Qualified Code(s): J44.9 - Chronic obstructive pulmonary disease, unspecified Code(s): J44.9 - Chronic obstructive pulmonary disease, unspecified Status: Chronic Assessment and Plan: known history and continue to smoke continue bronchodilators supportive therapy and smoking cessation education (4) HTN (hypertension): Qualifiers: Hypertension type: unspecified Qualified Code(s): I10 - Essential (primary) hypertension Code(s): I10 - Essential (primary) hypertension Status: Chronic Assessment and Plan: running on the low side BP medications on hold follow trend (5) CHF (congestive heart failure): Qualifiers: Heart failure type: unspecified Heart failure chronicity: chronic Qualified Code(s): I50.9 - Heart failure, unspecified Code(s): I50.9 - Heart failure, unspecified Status: Chronic Assessment and Plan: appears compensated/euvolemic follow trend Subjective Date/time seen: 07/07/20 10:25 Interval history: Patient is alert and sitting at the side of the bed. She feels better eating well. On a fluid restriction Review of Systems Cardiovascular: Cardiovascular: Reports no additional cardiovascular complaints Respiratory: Respiratory: Reports no additional respiratory complaints Gastrointestinal: Gastrointestinal: Reports no additional gastrointestinal complaints Genitourinary: Genitourinary: Reports no additional female genitourinary complaints Exam Narrative: Exam Narrative: General: WD/WN female in NAD Heart: normal S1 and S2; no rub Lungs: clear bilaterally Abdomen: soft, nontender, nondistended, positive bowel sounds Extremities: no cyanosis or clubbing; no edema Skin: no rash Objective Data Vital Signs Vital Signs: Vital Signs - 24 hr 07/06/20 10:54 07/06/20 12:00 07/06/20 14:00 Temperature 36.2 C L Pulse Rate 55 L 50 L 68 Respiratory Rate 18 Blood Pressure 90/58 L 104/50 L Pulse Oximetry 100 07/06/20 16:00 07/06/20 19:03 07/06/20 19:08 Temperature Pulse Rate 63 60 59 L Respiratory Rate 18 18 Blood Pressure Pulse Oximetry 07/06/20 20:03 07/07/20 06:34 07/07/20 08:00 Temperature 36.4 C 36.6 C Pulse Rate 74 64 73 Respiratory Rate 18 18 18 Blood Pressure 112/58 L 99/59 L Pulse Oximetry 94 91 91 07/07/20 09:31 Temperature Pulse Rate 73 Respiratory Rate Blood Pressure Pulse Oximetry Intake/Output Intake/Output: Intake & Output 07/04/20 07/05/20 07/06/20 07/07/20 23:59 23:59 23:59 23:59 Intake Total 500 1380 1790 360 Output Total 650 3850 750 Balance 500 490 -8173 -390 Meds/Results Medications: Active Medications Generic Name Dose Route
[2020-07-07] MEDS: COSYNTROPIN 0.25 MG/ML VIAL IV PUSH (11:20)
--- NOTE | 2020-07-07 15:13 | PM.IMPN ---
Progress Note: A&P Assessment and Plan (1) Acute hyponatremia: Code(s): E87.1 - Hypo-osmolality and hyponatremia Status: Acute Assessment and Plan: Acute isotonic hyponatremia. Patient on Lasix chronically. Cr not much different from baseline but BUN/Cr ratio >20 to suggest dehydration. She has been having n/v and complains of lightheadedness to suggest she is volume depleted. Nausea also could be a spotter driver of her hyponatremia itself. CXR showing cardiomegaly with mild pulmonary edema. 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 Treated with fluid restriction and 3% saline on admission with Na level climbed to 121 but then it stalled. Urine Na 33. Diuretics on hold. Repeat 3% saline infusion ordered on 07/06. Sodium cimbed to 128 now. Nephrology consulted and appreciate their help. Continue to monitor sodium closely. (2) Leukocytosis: Qualifiers: Leukocytosis type: unspecified Qualified Code(s): D72.829 - Elevated white blood cell count, unspecified Code(s): D72.829 - Elevated white blood cell count, unspecified Status: Acute Assessment and Plan: WBC mildly elevated at 13.6 but better on repeat. Continue to monitor CBCd periodically. (3) COPD (chronic obstructive pulmonary disease): Qualifiers: COPD type: unspecified COPD Qualified Code(s): J44.9 - Chronic obstructive pulmonary disease, unspecified Code(s): J44.9 - Chronic obstructive pulmonary disease, unspecified Status: Chronic Assessment and Plan: Few expiratory rhonchi. Remains on room air. Continue bronchodilators. (4) HTN (hypertension): Qualifiers: Hypertension type: unspecified Qualified Code(s): I10 - Essential (primary) hypertension Code(s): I10 - Essential (primary) hypertension Status: Chronic Assessment and Plan: BP remains soft but stable. Lisinopril on hold. Bystolic cut to 10mg daily. She may be dehydrated from the Lasix and the n/v prior to admission. Monitor blood pressure. (5) Hyperlipemia: Qualifiers: Hyperlipidemia type: unspecified Qualified Code(s): E78.5 - Hyperlipidemia, unspecified Code(s): E78.5 - Hyperlipidemia, unspecified Status: Chronic Assessment and Plan: LFTs okay. Continue Crestor. (6) CHF (congestive heart failure): Qualifiers: Heart failure type: unspecified Heart failure chronicity: chronic Qualified Code(s): I50.9 - Heart failure, unspecified Code(s): I50.9 - Heart failure, unspecified Status: Chronic Assessment and Plan: Pedal edema noted yesterday but better today. Was on Lasix at home 40mg BID. Lasix on hold secondary to hyponatremia. Resume when okay with nephrology and BP better. Negative fluid balance but not on diuretics. Continue to monitor fluid status. (7) Atrial fibrillation: Qualifiers: Atrial fibrillation type: paroxysmal Qualified Code(s): I48.0 - Paroxysmal atrial fibrillation Code(s): I48.91 - Unspecified atrial fibrillation Status: Chronic Assessment and Plan: Rate controlled. Continue Bystolic but at lower dose due to soft BP. Continue Eliquis. (8) Tobacco dependence: Code(s): F17.200 - Nicotine dependence, unspecified, uncomplicated Status: Acute Assessment and Plan: Patient educated about the benefits of smoking cessation (9) DVT prophylaxis: Code(s): Z29.9 - Encounter for prophylactic measures, unspecified Status: Acute Assessment and Plan: Eliquis Subjective Date/time seen: 07/07/20 15:13 Interval history: Date of service 07/07 70yo female with COPD, CHF and AFib here for abnormal labs noted in the outpatient with a Na of 119. In the ED, her sodium was 113. Eating okay. No CP or SOB> Walking to the BR and in the halls. Requesting discharge. Feels much better. Patient states today that she had
[2020-07-07 17:17] LABS: Sodium 128 mmol/L (137-145)
[2020-07-07] MEDS: SODIUM CHLORIDE 0.9% IV 1,000 ML 75 ML IV CONT (18:26)
[2020-07-07] MEDS: ACETAMINOPHEN 325 MG TABLET 650 MG PO ×2 (18:30→22:09)
[2020-07-08 05:11] VITALS: BP 104/51; PULSE 70; RESP 18; TEMP 36.7; O2SAT 95
[2020-07-08 06:54] LABS: Albumin Level 3.9 g/dL (3.5-5.1); Anion Gap 4 mmol/L (8-16); Blood Urea Nitrogen 28 mg/dL (7-17); Calcium 9.6 mg/dL (8.4-10.2); Carbon Dioxide 31 mmol/L (22-30); Chloride 92 mmol/L (98-107); Estimated CRCL calculation 46 ml/min; Estimated Glomerular Filt Rate 55; Glucose 87 mg/dL (65-105); Phosphorus 3.3 mg/dL (2.5-4.5); Potassium 3.6 mmol/L (3.4-5.0); Sodium 127 mmol/L (137-145)
[2020-07-08] MEDS: SODIUM CHLORIDE 0.9% IV 1,000 ML 75 ML IV CONT (07:26)
[2020-07-08 08:00] VITALS: PULSE 63; RESP 18; O2SAT 95
[2020-07-08] MEDS: FLUTICASONE PROPIONATE 0.05% NA SPR 16 GM BTL (*BKC) 1 SPRAY NASAL (08:44)
[2020-07-08 08:45] VITALS: PULSE 72
[2020-07-08] MEDS: MONTELUKAST SODIUM 10 MG TABLET PO (08:45)
[2020-07-08] MEDS: ASPIRIN 81 MG ENTERIC TABLET PO (08:45)
[2020-07-08] MEDS: NEBIVOLOL HCL 5 MG TABLET 10 MG PO (08:45)
[2020-07-08] MEDS: LORATADINE 5 MG TABLET PO (08:45)
[2020-07-08] MEDS: ROSUVASTATIN 10 MG TABLET 40 MG PO (08:45)
[2020-07-08] MEDS: PANTOPRAZOLE SOD SESQUIHYDRATE 20 MG TAB PO (08:45)
[2020-07-08] MEDS: APIXABAN 5 MG TABLET PO (08:46)
[2020-07-08] MEDS: ASCORBIC ACID 500 MG TABLET PO (08:46)
[2020-07-08 08:55] VITALS: PULSE 65; RESP 18
[2020-07-08] MEDS: BUDESONIDE RESPULE NEB 0.5 MG/2 ML AMP INHALATION (09:01)
[2020-07-08 09:05] VITALS: PULSE 63; RESP 18
--- NOTE | 2020-07-08 10:47 | P.PNNP_ITS ---
Progress Note: A&P Assessment and Plan (1) Hyponatremia: Code(s): E87.1 - Hypo-osmolality and hyponatremia Status: Acute Assessment and Plan: * apparently an acute issue * TSH okay. * Cortisol level is 11. Cortrosyn stim was normal. * Chest x-ray shows no significant pulmonary process. 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 consider saline * Did received 3% saline at 1 point. * Currently just on fluid restriction and her sodium level is stable in the high 120s. * I think she is probably okay for discharge. She should get another sodium level next week and call the office for the results. * She was on diuretics because of swelling. She has history of congestive heart failure but an echo is unavailable. She also has a history of COPD and so could have pulmonary hypertension. In addition she has sleep apnea which could contribute to this as well. I told her to avoid salty food to try to prevent the swelling from coming back. If it does then generally once a day Lasix should not depress this serum sodium and that she becomes frankly dehydrated. * I advised her to drink when she is thirsty but not when she is not. Try to limit her fluid intake to about 1 qt per day. (2) Chronic kidney disease, stage 3: Code(s): N18.30 - Chronic kidney disease, stage 3 unspecified Status: Acute Assessment and Plan: * creatinine seems to run ~ 1.5 - 1.8mg/dl * presumably due to HTN, CHF, need for diuretics * creatinine is improved off the diuretics. (3) COPD (chronic obstructive pulmonary disease): Qualifiers: COPD type: unspecified COPD Qualified Code(s): J44.9 - Chronic obstructive pulmonary disease, unspecified Code(s): J44.9 - Chronic obstructive pulmonary disease, unspecified Status: Chronic Assessment and Plan: * known history and continue to smoke * continue bronchodilators * Stop smoking * use CPAP machine (4) HTN (hypertension): Qualifiers: Hypertension type: unspecified Qualified Code(s): I10 - Essential (primary) hypertension Code(s): I10 - Essential (primary) hypertension Status: Chronic Assessment and Plan: * running on the low side * BP medications on hold * follow trend (5) CHF (congestive heart failure): Qualifiers: Heart failure type: unspecified Heart failure chronicity: chronic Qualified Code(s): I50.9 - Heart failure, unspecified Code(s): I50.9 - Heart failure, unspecified Status: Chronic Assessment and Plan: * appears compensated/euvolemic * follow trend Subjective Date/time seen: 07/08/20 10:47 Interval history: Patient is alert and Walking with a cane She feels better on the fluid restriction. Exam Narrative: Exam Narrative: General: WD/WN female in NAD Heart: normal S1 and S2; no rub Lungs: clear to auscultation Abdomen: soft, nontender, nondistended, positive bowel sounds Extremities: no cyanosis or clubbing; no edema Skin: no rash or subcu nodules Objective Data Vital Signs Vital Signs: Vital Signs - 24 hr 07/07/20 13:50 07/07/20 20:40 07/07/20 20:49 Temperature 36.2 C L Pulse
--- NOTE | 2020-07-08 10:47 | PM.PNNEP ---
Progress Note: A&P Assessment and Plan (1) Hyponatremia: Code(s): E87.1 - Hypo-osmolality and hyponatremia Status: Acute Assessment and Plan: apparently an acute issue TSH okay. Cortisol level is 11. Cortrosyn stim was normal. Chest x-ray shows no significant pulmonary process. 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 consider saline Did received 3% saline at 1 point. Currently just on fluid restriction and her sodium level is stable in the high 120s. I think she is probably okay for discharge. She should get another sodium level next week and call the office for the results. She was on diuretics because of swelling. She has history of congestive heart failure but an echo is unavailable. She also has a history of COPD and so could have pulmonary hypertension. In addition she has sleep apnea which could contribute to this as well. I told her to avoid salty food to try to prevent the swelling from coming back. If it does then generally once a day Lasix should not depress this serum sodium and that she becomes frankly dehydrated. I advised her to drink when she is thirsty but not when she is not. Try to limit her fluid intake to about 1 qt per day. (2) Chronic kidney disease, stage 3: Code(s): N18.30 - Chronic kidney disease, stage 3 unspecified Status: Acute Assessment and Plan: creatinine seems to run ~ 1.5 - 1.8mg/dl presumably due to HTN, CHF, need for diuretics creatinine is improved off the diuretics. (3) COPD (chronic obstructive pulmonary disease): Qualifiers: COPD type: unspecified COPD Qualified Code(s): J44.9 - Chronic obstructive pulmonary disease, unspecified Code(s): J44.9 - Chronic obstructive pulmonary disease, unspecified Status: Chronic Assessment and Plan: known history and continue to smoke continue bronchodilators Stop smoking use CPAP machine (4) HTN (hypertension): Qualifiers: Hypertension type: unspecified Qualified Code(s): I10 - Essential (primary) hypertension Code(s): I10 - Essential (primary) hypertension Status: Chronic Assessment and Plan: running on the low side BP medications on hold follow trend (5) CHF (congestive heart failure): Qualifiers: Heart failure type: unspecified Heart failure chronicity: chronic Qualified Code(s): I50.9 - Heart failure, unspecified Code(s): I50.9 - Heart failure, unspecified Status: Chronic Assessment and Plan: appears compensated/euvolemic follow trend Subjective Date/time seen: 07/08/20 10:47 Interval history: Patient is alert and Walking with a cane She feels better on the fluid restriction. Exam Narrative: Exam Narrative: General: WD/WN female in NAD Heart: normal S1 and S2; no rub Lungs: clear to auscultation Abdomen: soft, nontender, nondistended, positive bowel sounds Extremities: no cyanosis or clubbing; no edema Skin: no rash or subcu nodules Objective Data Vital Signs Vital Signs: Vital Signs - 24 hr 07/07/20 13:50 07/07/20 20:40 07/07/20 20:49 Temperature 36.2 C L Pulse Rate 68 62 62 Respiratory Rate 12 18 18 Blood Pressure 112/65 Pulse Oximetry 94 07/07/20 22:00 07/08/20 05:11 07/08/20 08:45 Temperature 36.1 C L 36.7 C Pulse Rate 61 70 72 Respiratory Rate 16 18 Blood Pressure 114/65 104/51 L Pulse Oximetry 94 95 07/08/20 08:55 07/08/20 09:05 Temperature Pulse Rate 65 63 Respiratory Rate 18 18 Blood Pressure Pulse Oximetry Intake/Output Intake/Output: Intake & Output 07/05/20 07/06/20 07/07/20 07/08/20 23:59 23:59 23:59 23:59 Intake Total 1380 17
--- NOTE | 2020-07-08 12:44 | PM.DS ---
DS: Admitting Diagnosis Admitting Diagnosis Admitting Diagnosis: Hyponatremia DS: Discharge Diagnosis Discharge Diagnosis (1) Acute hyponatremia: Code(s): E87.1 - Hypo-osmolality and hyponatremia Status: Acute Assessment and Plan: Patient presented to ED for abnormal labs noted in the outpatient with a Na of 119. In the ED, her sodium was 113 and felt to have acute isotonic hyponatremia. Patient is on Lasix chronically. Cr not much different from baseline but BUN/Cr ratio >20 to suggest dehydration. She has been having n/v and complains of lightheadedness to suggest she is volume depleted and/or HTN over treated. Nausea also could be a uke driver of her hyponatremia itself. CXR showing cardiomegaly with mild pulmonary edema but no masses. 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 Nephrology consulted and appreciate their help. Treated with fluid restriction and 3% saline on admission with Na level climbed to 121 but then it stalled. Urine Na 33. Diuretics remained on hold. TSH normal. SPEP pending. Cortrosyn stim test was normal. Repeat 3% saline infusion ordered on 07/06. Sodium climbed to 128 and has remained stable. [place] patient could go home with close followup. Discussed with nephrology: continue fluid restriction, check BMP Thursday and patietn to call for results. (2) Leukocytosis: Qualifiers: Leukocytosis type: unspecified Qualified Code(s): D72.829 - Elevated white blood cell count, unspecified Code(s): D72.829 - Elevated white blood cell count, unspecified Status: Acute Assessment and Plan: WBC mildly elevated at 13.6 but better on repeat. (3) COPD (chronic obstructive pulmonary disease): Qualifiers: COPD type: unspecified COPD Qualified Code(s): J44.9 - Chronic obstructive pulmonary disease, unspecified Code(s): J44.9 - Chronic obstructive pulmonary disease, unspecified Status: Chronic Assessment and Plan: Remained stable. She remained on room air. We continued bronchodilators. (4) HTN (hypertension): Qualifiers: Hypertension type: unspecified Qualified Code(s): I10 - Essential (primary) hypertension Code(s): I10 - Essential (primary) hypertension Status: Chronic Assessment and Plan: BP was soft so lasix and Lisinopril held. Bystolic 40mg daily at home but this was cut to 20mg then to 10mg. She was able to tolerate this dose. (5) Hyperlipemia: Qualifiers: Hyperlipidemia type: unspecified Qualified Code(s): E78.5 - Hyperlipidemia, unspecified Code(s): E78.5 - Hyperlipidemia, unspecified Status: Chronic Assessment and Plan: LFTs okay. We continued Crestor. (6) CHF (congestive heart failure): Qualifiers: Heart failure type: unspecified Heart failure chronicity: chronic Qualified Code(s): I50.9 - Heart failure, unspecified Code(s): I50.9 - Heart failure, unspecified Status: Chronic Assessment and Plan: Pedal edema trace today. Was on Lasix at home 40mg BID. Lasix was held secondary to hyponatremia and Hypotension. Negative fluid balance during her hospitalization but not on diuretics. She was educated about how to monitor at home with daily morning weight. (7) Atrial fibrillation: Qualifiers: Atrial fibrillation type: paroxysmal Qualified Code(s): I48.0 - Paroxysmal atrial fibrillation Code(s): I48.91 - Unspecified atrial fibrillation Status: Chronic Assessment and Plan: Heart rate remained well controlled. We continued her Bystolic but at lower dose due to soft BP. We also continued her Eliquis. (8) Tobacco dependence: Code(s): F17.200 - Nicotine dependence, unspecified, uncomplicated Status: Acute Assessment and Plan: Patient educated about the benefits of smoking cessation. This was reinforced today and discussed for about 7 minutes
[2020-07-08 13:32] LABS: Sodium 130 mmol/L (137-145)
--- NOTE | 2020-07-08 14:53 | PC.NURSE ---
Patient refuses flu vaccine. Voiced that she will get it from her doctor.
[2020-07-09 04:26] LABS: Osmolality, Urine 213 mOsm/kg (50-1200)
[2020-07-09 23:24] LABS: Albumin 3.4 g/dL (3.8-4.8); Alpha 1 Globulin 0.3 g/dL (0.2-0.3); Alpha 2 Globulin 0.8 g/dL (0.5-0.9); Beta 1 Globulin 0.4 g/dL (0.4-0.6); Gamma Globulin 0.6 g/dL (0.8-1.7); Interpretation Consistent with; Protein, Total 5.8 g/dL (6.1-8.1)
[2020-07-10 19:45] LABS: Kappa\\Lambda Light Chains 1.47 (0.26-1.65); Lambda Light Chain 26.7 mg/L (5.7-26.3)
[2020-07-13 07:15] LABS: Creatinine, Random Urine 44 mg/dL (20-275); Total Protein/Creatinine Ratio 91 mg/g creat (21-161)
[2020-07-13 11:34] LABS: Chloride Rand Ur <20 mmol/L (32-290); Creatinine Random Urine 46 mg/dL (20-275)
--- NOTE | 2020-07-18 07:28 | PC.NURSE ---
Serum IF- no abn bands Urine IF- no abn bands UPEP- no abn peaks
== END 2020-07-08 15:00 | disposition home or self-care (01) | DRG 641 ==
LOC: ANHED 20:56 → ANH3MED 21:11
PROVIDERS: Internal Medicine Nephrology; Admitting Provider Family Medicine; Emergency Provider Emergency Medicine; PCP Nurse Practitioner Family; Visit Provider Internal Medicine
DX: E87.1 Hypo-osmolality and hyponatremia (principal); I48.20 Chronic atrial fibrillation, unspecified; I13.0 Hypertensive heart and chronic kidney disease with heart failure and stage 1 through stage 4 chronic kidney disease, or unspecified chronic kidney disease; I50.9 Heart failure, unspecified; J44.9 Chronic obstructive pulmonary disease, unspecified; N18.30 Chronic kidney disease, stage 3 unspecified; T50.2X5A Adverse effect of carbonic-anhydrase inhibitors, benzothiadiazides and other diuretics, initial encounter; D72.829 Elevated white blood cell count, unspecified; E78.5 Hyperlipidemia, unspecified; I48.91 Unspecified atrial fibrillation; F17.200 Nicotine dependence, unspecified, uncomplicated; L40.9 Psoriasis, unspecified; G47.30 Sleep apnea, unspecified; Z90.49 Acquired absence of other specified parts of digestive tract; Z90.710 Acquired absence of both cervix and uterus; Z79.01 Long term (current) use of anticoagulants
CPT/HCPCS: 36415; 71046; 80048; 80053; 80069; 81001; 82436; 82533; 82570; 83735; 83883; 83930; 83935; 84155; 84156; 84165; 84166; 84295; 84300; 84443; 85025; 85610; 85730; 86334; 86335; 94640; 99285; A9270; J0834; J3480; J7030; J7040; J7131

== ENCOUNTER 2020-07-16 12:20 | Outpatient (CLI) | payer OTHER, SELFPAY ==
[2020-07-16 13:42] LABS: Anion Gap 13 mmol/L (8-16); Blood Urea Nitrogen 18 mg/dL (7-18); Calcium 9.8 mg/dL (8.5-10.1); Carbon Dioxide 29 mmol/L (21-32); Chloride 97 mmol/L (98-108); Estimated Glomerular Filt Rate 37; Glucose 104 mg/dL (70-99); Osmolality Calculated 289 mOsm/kg (285-295); Potassium 3.5 mmol/L (3.5-5.1); Sodium 139 mmol/L (136-145)
== END 2020-07-16 12:21 | disposition home or self-care (01) ==
LOC: CHSLAB 12:22
PROVIDERS: PCP Nurse Practitioner Family; Visit Provider Internal Medicine
DX: E87.1 Hypo-osmolality and hyponatremia (principal)
CPT/HCPCS: 36415; 80048

== ENCOUNTER 2020-08-02 14:50 | Outpatient (NON) | payer OTHER, SELFPAY ==
[2020-08-02 16:25] LABS: Alanine Aminotransferase 18 U/L (14-59); Albumin Level 3.3 g/dL (3.4-5.0); Alkaline Phosphatase 215 U/L (46-116); Anion Gap 6 mmol/L (8-16); Aspartate Amino Transferase < 10 U/L (15-37); BNP 625 pg/mL (0-100); Bilirubin,Total 0.2 mg/dL (0.00-1.00); Blood Urea Nitrogen 13 mg/dL (7-18); Calcium 9.1 mg/dL (8.5-10.1); Carbon Dioxide 30 mmol/L (21-32); Chloride 107 mmol/L (98-108); Estimated Glomerular Filt Rate 39; Glucose 114 mg/dL (70-99); Osmolality Calculated 297 mOsm/kg (285-295); Potassium 4.3 mmol/L (3.5-5.1); Sodium 143 mmol/L (136-145); Total Protein 6.9 g/dL (6.4-8.2); Uric Acid 3.7 mg/dL (2.6-6.0)
== END 2020-08-02 14:51 ==
PROVIDERS: PCP Nurse Practitioner Family; Visit Provider Nurse Practitioner Family
DX: E87.6 Hypokalemia (principal); I50.9 Heart failure, unspecified; M81.0 Age-related osteoporosis without current pathological fracture
CPT/HCPCS: 36415; 80053; 83880; 84550

== ENCOUNTER 2020-08-23 11:46 | Outpatient (CLI) | payer OTHER, SELFPAY ==
--- NOTE | ~2020-08-23 | XR_ITS ---
XR foot RT 2V, XR foot LT 2V 08/23/2020 12:14 Indication: Chronic foot pain Procedure: 2 views each foot Comparison: Right foot series dated 12/22/2019 nin Findings: Right foot: Osteopenia. There is moderate osteoarthritis of the first MTP joint. Lisfranc j oint intact. Small degenerative calcaneal enthesophyte. No fracture or traumatic malalignment. Mild d iffuse soft tissue swelling. Left foot: Moderate osteoarthritis of the first MTP joint. Lisfranc joint intact. Small degenerative calcaneal enthesophyte at the plantar surface. Osteopenia. No acute fracture or traumatic malalignmen t. Mild diffuse soft tissue swelling. Impression: 1: No acute bone or joint abnormality. 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 3: Osteopenia. Reviewed, dictated and finalized at location B. LOADER OPERATOR Impression: 1: No acute bone or joint abnormality. 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 3: Osteopenia. Impression: 1: No acute bone or joint abnormality. 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 3: Osteopenia.
[2020-08-23 12:29] LABS: BNP 300 pg/mL (0-100)
[2020-08-23 12:41] LABS: Anion Gap 8 mmol/L (8-16); Blood Urea Nitrogen 18 mg/dL (7-18); Calcium 9.7 mg/dL (8.5-10.1); Carbon Dioxide 32 mmol/L (21-32); Chloride 103 mmol/L (98-108); Estimated Glomerular Filt Rate 44; Glucose 96 mg/dL (70-99); Osmolality Calculated 297 mOsm/kg (285-295); Potassium 4.5 mmol/L (3.5-5.1); Sodium 143 mmol/L (136-145)
== END 2020-08-23 11:47 | disposition home or self-care (01) ==
LOC: CHSLAB 11:49
PROVIDERS: PCP Nurse Practitioner Family; Visit Provider Nurse Practitioner Family
DX: M79.673 Pain in unspecified foot (principal); I50.32 Chronic diastolic (congestive) heart failure
CPT/HCPCS: 36415; 73620; 80048; 83880

== ENCOUNTER 2020-10-11 11:08 | Outpatient (CLI) | payer OTHER, SELFPAY ==
[2020-10-11 12:23] LABS: Anion Gap 7 mmol/L (8-16); Blood Urea Nitrogen 15 mg/dL (7-18); Carbon Dioxide 33 mmol/L (21-32); Chloride 102 mmol/L (98-108); Estimated Glomerular Filt Rate 43; Glucose 106 mg/dL (70-99); Osmolality Calculated 294 mOsm/kg (285-295); Potassium 3.6 mmol/L (3.5-5.1); Sodium 142 mmol/L (136-145)
== END 2020-10-11 11:09 | disposition home or self-care (01) ==
LOC: CHSLAB 11:10
PROVIDERS: PCP Nurse Practitioner Family; Visit Provider Internal Medicine Cardiovascular Disease
DX: I50.32 Chronic diastolic (congestive) heart failure (principal); R60.0 Localized edema
CPT/HCPCS: 36415; 80048

== ENCOUNTER 2021-03-08 10:05 | Outpatient (CLI) | payer OTHER, SELFPAY ==
--- NOTE | ~2021-03-08 | US_ITS ---
EXAMINATION: US carotid duplex BI DATE: 03/08/2021 11:07 INDICATION: Bilateral carotid bruit TECHNIQUE: Grayscale, color Doppler, and pulsed Doppler images of the cervical carotid arteries were obtained. The degree of vessel stenosis is placed in one of the following categories: normal, <50%, 5 0-69%, >=70% but less than near-occlusion, near-occlusion, or total occlusion. Note that percent sten osis relative to normal distal artery lumen diameter is indirectly measured from velocity measurement s as described by Kulwinder, et al. Radiology 2003; 229:340-346. Notes: Normal: Peak systolic velocity <125 centimeters/sec and no plaque <50%. Peak systolic velocity <125 ( EDV <40; ICA/CCA PSV ratio <2.0; used these factors only a tandem lesions or low cardiac output or co ntralateral disease) 50-69 %: PSV 125-230 (EDV 40-100; ratio 2-4) >= 70% but less than near occlusion: PSV greater than 230 (EDV > 100; ratio> 4.0) Near Occlusion: PSV that is variable; markedly narrowed lumen Occlusion: Absent flow on color/spectral Doppler and no lumen on brewer scale. COMPARISON: None. FINDINGS: RIGHT: The right common carotid artery (CCA) peak systolic velocity (PSV) is 70 cm/s. The right internal car otid artery (ICA) PSV is 110 cm/s. The right ICA end-diastolic velocity (EDV) is 43 cm/s. The right I CA/CCA PSV ratio is 1.6. The external carotid artery (ECA) PSV is 142 cm/s. There is antegrade flow i n the right vertebral artery. LEFT: The left CCA PSV is 153 cm/s. The left ICA PSV is 160 cm/s. The left ICA EDV is 32 cm/s. The left ICA /CCA PSV ratio is 1.0. The ECA PSV is 125 cm/s. There is antegrade flow in the left vertebral artery . IMPRESSION: 1. Less than 50% stenosis in the right internal carotid artery by sonographic criteria. 2. 50-69% stenosis in the left internal carotid artery by sonographic criteria. Reviewed, dictated and finalized at location A. IMPRESSION: 1. Less than 50% stenosis in the right internal carotid artery by sonographic c riteria. 2. 50-69% stenosis in the left internal carotid artery by sonographic criteria.
[2021-03-08 10:27] LABS: Hematocrit 43.8 % (37.0-47.0); Mean Corpuscular Hemoglobin 30.3 pg (26-34); Mean Corpuscular Volume 94.8 fl (80-100); Mean Platelet Volume 10.5 fl (7.4-10.4); Platelet Count Result 260 k/mm3 (150-375); Red Blood Count 4.62 M/mm3 (4.2-5.4); Red Cell Distribution Width 15.8 % (11.5-14.5); White Blood Count 11.1 K/mm3 (4.5-10.0)
[2021-03-08 10:39] LABS: Alanine Aminotransferase 13 U/L (4-35); Albumin Level 4.4 g/dL (3.5-5.1); Alkaline Phosphatase 218 U/L (38-126); Anion Gap 9 mmol/L (8-16); Aspartate Amino Transferase 21 U/L (14-36); Bilirubin,Total 0.6 mg/dL (0.2-1.3); Blood Urea Nitrogen 14 mg/dL (7-17); Calcium 9.6 mg/dL (8.4-10.2); Carbon Dioxide 34 mmol/L (22-30); Chloride 100 mmol/L (98-107); Estimated Glomerular Filt Rate > 60; Glucose 104 mg/dL (65-105); HDL Direct 30 mg/dL; Potassium 3.8 mmol/L (3.4-5.0); Sodium 143 mmol/L (137-145); Triglycerides 161 mg/dL (<150)
[2021-03-08 10:42] LABS: Cholesterol 136 mg/dL (0-200)
[2021-03-08 10:49] LABS: LDL Cholesterol Direct 72 mg/dL
== END 2021-03-08 10:06 | disposition home or self-care (01) ==
PROVIDERS: PCP Nurse Practitioner Family; Visit Provider Internal Medicine Cardiovascular Disease
DX: R09.89 Other specified symptoms and signs involving the circulatory and respiratory systems (principal); I65.23 Occlusion and stenosis of bilateral carotid arteries
CPT/HCPCS: 36415; 80053; 80061; 85027; 93880

== ENCOUNTER 2021-07-05 07:48 | Outpatient (CLI) | payer OTHER, SELFPAY ==
--- NOTE | ~2021-07-05 | MM_ITS ---
EXAMINATION: MM screening [facility] BI w armen HISTORY: Screening TECHNIQUE: Craniocaudal and mediolateral oblique 3-D tomosynthesis images were obtained and synthetic 2-D images were generated. CAD analysis was submitted and interpreted. COMPARISON: Comparison to multiple prior studies sequentially, with oldest reviewed study dated 06/21. BREAST PARENCHYMAL COMPOSITION: There are scattered areas of fibroglandular density. FINDINGS: There is no evidence of suspicious mass, calcification, or architectural distortion to sugg est malignancy in either breast. There has been no suspicious interval change. IMPRESSION: 1. No mammographic evidence of malignancy. 2. Recommend routine screening mammography in one year. BI-RADS Category 1: Negative Reviewed, dictated and finalized at location A.
== END 2021-07-05 07:49 | disposition home or self-care (01) ==
PROVIDERS: PCP Nurse Practitioner Family; Visit Provider Nurse Practitioner Family
DX: Z12.31 Encounter for screening mammogram for malignant neoplasm of breast (principal)
CPT/HCPCS: 77063; 77067

== ENCOUNTER 2022-03-12 16:05 | Outpatient (CLI) | payer OTHER, SELFPAY ==
[2022-03-12 16:22] LABS: Hematocrit 40.8 % (37.0-47.0); Hemoglobin 12.6 g/dL (12.0-15.0); Mean Corpuscular HGB Conc 30.9 g/dl (32-36); Mean Corpuscular Hemoglobin 30.7 pg (26-34); Mean Corpuscular Volume 99.3 fl (80-100); Mean Platelet Volume 10.2 fl (7.4-10.4); Platelet Count Result 269 k/mm3 (150-375); Red Blood Count 4.11 M/mm3 (4.2-5.4); Red Cell Distribution Width 15.7 % (11.5-14.5); White Blood Count 12.1 K/mm3 (4.5-10.0)
[2022-03-12 16:36] LABS: Anion Gap 5 mmol/L (8-16); Blood Urea Nitrogen 16 mg/dL (7-17); Calcium 9.1 mg/dL (8.4-10.2); Carbon Dioxide 33 mmol/L (22-30); Chloride 102 mmol/L (98-107); Estimated Glomerular Filt Rate 55; Glucose 111 mg/dL (65-110); Potassium 4.1 mmol/L (3.4-5.0); Sodium 140 mmol/L (137-145)
== END 2022-03-12 16:06 | disposition home or self-care (01) ==
PROVIDERS: PCP Nurse Practitioner Family; Visit Provider Internal Medicine Cardiovascular Disease
DX: Z51.81 Encounter for therapeutic drug level monitoring (principal); Z79.01 Long term (current) use of anticoagulants; I50.32 Chronic diastolic (congestive) heart failure
CPT/HCPCS: 36415; 80048; 85027

== ENCOUNTER 2022-10-31 09:34 | Outpatient (CLI) | payer MEDICARE, SELFPAY ==
[2022-10-31 10:40] LABS: Basophils Absolute Auto 0.03 K/mm3 (0.00-0.10); Basophils Percent Auto 0.2 % (0.0-1.0); Eosinophils Absolute Auto 0.01 K/mm3 (0.02-0.50); Eosinophils Percent Auto 0.1 % (1.0-6.0); Hematocrit 21.1 % (35.0-42.0); Immature Granulocyte Absolute 0.05 K/mm3 (0.00-0.00); Immature Granulocyte Percent A 0.4 % (0.0-0.0); Lymphocytes Absolute Auto 2.04 K/mm3 (1.10-4.50); Lymphocytes Percent Auto 16.5 % (18.0-42.0); Mean Corpuscular HGB Conc 26.5 g/dL (32.0-36.0); Mean Corpuscular Hemoglobin 20.1 pg (27.0-31.0); Mean Corpuscular Volume 75.6 fL (78.0-102.0); Mean Platelet Volume 10.9 fl (9.2-11.8); Monocytes Absolute Auto 1.23 K/mm3 (0.10-0.90); Monocytes Percent Auto 9.9 % (2.0-11.0); Neutrophils Percent Auto 72.9 % (50.0-70.0); Nucleated Red Blood Cells Absolute Auto 0.41 K/mm3 (0.00-0.00); Nucleated Red Blood Cells Perc 3.3 % (0-0.0); Platelet Count Result 396 K/mm3 (150-420); Red Blood Count 2.79 M/mm3 (4.20-5.40); Red Cell Distribution Width 20.1 % (11.6-14.4); White Blood Count 12.4 K/mm3 (4.8-10.8)
[2022-10-31 10:46] LABS: Hemoglobin 5.6 g/dL (11.7-13.8)
[2022-10-31 11:10] LABS: Anion Gap 9 mmol/L (8-16); Blood Urea Nitrogen 29 mg/dL (7-18); Calcium 8.4 mg/dL (8.5-10.1); Carbon Dioxide 31 mmol/L (21-32); Chloride 97 mmol/L (98-108); Estimated Glomerular Filt Rate 23; Glucose 116 mg/dL (70-99); NT Pro B Type Natriuretic Pept 5149 pg/mL (0-125); Osmolality Calculated 290 mOsm/kg (285-295); Potassium 3.8 mmol/L (3.5-5.1); Sodium 137 mmol/L (136-145)
== END 2022-10-31 09:35 | disposition home or self-care (01) ==
PROVIDERS: PCP Nurse Practitioner Family; Visit Provider Nurse Practitioner Adult Health
DX: I50.32 Chronic diastolic (congestive) heart failure (principal); I95.0 Idiopathic hypotension; Z79.01 Long term (current) use of anticoagulants; E87.1 Hypo-osmolality and hyponatremia
CPT/HCPCS: 36415; 80048; 83880; 85025

== ENCOUNTER 2022-10-31 11:28 | Emergency (ER) | payer MEDICARE, SELFPAY ==
[2022-10-31] VITALS (68 sets, daily range): BP systolic 84–116; BP diastolic 43–77; PULSE 71–97; RESP 13–25; TEMP 36.4–37.1; O2SAT 89–100
--- NOTE | ~2022-10-31 | CT_ITS ---
EXAMINATION:CT diagnostic chest wo con DATE: 10/31/2022 15:30 INDICATION: Right lower lobe infiltrate. TECHNIQUE: Computed tomography (CT) of the chest was performed without intravenous contrast. Automate d exposure control and iterative reconstruction technique were employed. The dose-length product (DLP ) was 733.18 mGy-cm. COMPARISON: Chest single view 10/31/2022 FINDINGS: There is mild emphysema. There is mild atelectasis in the inferior lungs. There are two 4 m m nodules in left lower lobe, likely benign. No pleural effusion. Cardiomegaly is noted. There are co ronary artery calcifications. No pericardial effusion. There are nodules in the thyroid measuring up to 10 mm, likely not clinically significant. Calcifications in the liver and spleen are consistent wi th old granulomatous disease. Calcified mediastinal lymph nodes are consistent with old granulomatous disease. There are old bilateral rib fractures. There is mild thoracic spondylosis. There is a heman gioma in T10 vertebral body. IMPRESSION: 1. Mild atelectasis in the inferior lungs. 2. Mild emphysema. 3. Cardiomegaly. Reviewed, dictated and finalized at location A. 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
--- NOTE | ~2022-10-31 | XR_ITS ---
EXAMINATION: XR chest 1V portable INDICATION: Cough and shortness of breath TECHNIQUE: Portable AP chest at 1217 hours COMPARISON: 07/05/2020 FINDINGS: There is a nodular airspace opacity of the right lung base. Cardiomegaly is noted. No pleur al effusion or pneumothorax. Healed bilateral rib fractures are noted. IMPRESSION: 1. Cardiomegaly. 2. Right basilar airspace opacity which could reflect atelectasis or pneumonia however malignancy cou ld have a similar appearance. Follow-up with nonemergent CT of the chest is recommended. Reviewed, dictated and finalized at location B. GER CHEMICAL IMPRESSION: 1. Cardiomegaly. 2. Right basilar airspace opacity which could reflect atelectasis or pneumonia however malignancy could have a similar appearance. Follow-up with nonemergent CT of the chest is recommended.
--- NOTE | 2022-10-31 12:04 | ECG_ITS ---
Measurements Intervals [place] Rate: 86 P: MT: 0 QRS: -11 QRSD: 106 T: 22 QT: 397 QTc: 476 Interpretive Statements ATRIAL FIBRILLATION LOW QRS VOLTAGE IN PRECORDIAL LEADS [QRS DEFLECTION < 1.0 mV IN CHEST LEADS] POOR R-WAVE PROGRESSION ABNORMAL RHYTHM ECG NO PREVIOUS ECG AVAILABLE FOR COMPARISON Electronically Signed On 10-31-2022 13:20:58 ELECTRICIAN SUBSTATION by Lawrence Moe M.D.
[2022-10-31 12:19] LABS: Basophils Absolute Auto 0.03 K/mm3 (0.00-0.10); Basophils Percent Auto 0.3 % (0.0-1.0); Hematocrit 21.1 % (35.0-42.0); Immature Granulocyte Absolute 0.07 K/mm3 (0.00-0.00); Immature Granulocyte Percent A 0.6 % (0.0-0.0); Lymphocytes Absolute Auto 1.93 K/mm3 (1.10-4.50); Lymphocytes Percent Auto 16.9 % (18.0-42.0); Mean Corpuscular HGB Conc 26.1 g/dL (32.0-36.0); Mean Corpuscular Hemoglobin 19.4 pg (27.0-31.0); Mean Corpuscular Volume 74.3 fL (78.0-102.0); Mean Platelet Volume 10.5 fl (9.2-11.8); Monocytes Absolute Auto 1.05 K/mm3 (0.10-0.90); Monocytes Percent Auto 9.2 % (2.0-11.0); Neutrophils Absolute Auto 8.3 K/mm3 (1.7-7.2); Nucleated Red Blood Cells Absolute Auto 0.39 K/mm3 (0.00-0.00); Nucleated Red Blood Cells Perc 3.4 % (0-0.0); Platelet Count Result 407 K/mm3 (150-420); Red Blood Count 2.84 M/mm3 (4.20-5.40); Red Cell Distribution Width 20.1 % (11.6-14.4); White Blood Count 11.4 K/mm3 (4.8-10.8)
--- NOTE | 2022-10-31 12:19 | ED.GENADULT ---
HPI - General Adult General Chief complaint: Recheck/Abnormal Lab/Rx Stated complaint: low blood count Time Seen by Provider: 10/31/22 11:57 History of Present Illness HPI narrative: Patient is a 72-year-old woman referred from clinic where she saw a primary care provider today. Her comorbidities include congestive heart failure on Lasix 60 mg p.o. b.i.d. which was increased last week to 80 mg p.o. b.i.d. for 5 days and now back to 60 mg p.o. b.i.d.. She also has chronic atrial fibrillation, on beta blockers and also on Eliquis twice daily and aspirin 81 mg. also with history of chronic kidney disease stage 3, gout, COPD on oxygen 3L/m, hypertension, hyperlipidemia, and psoriasis. She does have complaints of shortness of breath both at rest and worsening with exertion. She also has pitting pedal edema up to the thighs and including the thighs. Does have chest discomfort with ambulation. Referred here for further management from clinic. The patient has had a 20 lb weight gain. The patient does have a cough which is mostly clear and nonproductive. Does have wheezing. Also with fevers chills and diaphoresis as well as a sore throat. Also with mild diffuse abdominal pain. No urinary symptoms. Related Data Home Medications Medication Instructions Recorded Confirmed apixaban 5 mg tablet (Eliquis) 5 mg PO BID 08/15/19 10/31/22 aspirin 81 mg tablet,delayed 81 mg PO DAILY 08/15/19 10/31/22 release ergocalciferol (vitamin D2) 1,250 50,000 unit PO WEEKLY 08/15/19 10/31/22 mcg (50,000 unit) capsule omeprazole 20 mg capsule,delayed 20 mg PO DAILY 08/15/19 10/31/22 release rosuvastatin 40 mg tablet (Crestor) 40 mg PO DAILY 08/15/19 10/31/22 ascorbate calcium (vitamin C) 500 mg PO DAILY 07/04/20 10/31/22 Allergies Allergy/AdvReac Type Severity Reaction Status Date / Time codeine Allergy Severe Rash Verified 10/31/22 07:53 iron Allergy Intermediate Abdominal Verified 10/31/22 07:53 Pain Review of Systems Review of Systems: All systems reviewed & are unremarkable except as noted in HPI and below Constitutional: Constitutional: Reports no additional constitutional complaints, Reports anorexia, Denies body ache(s), Denies chills, Denies excessive sweating, Denies fatigue, Reports fever(s), Denies frequent falls, Denies headache(s), Reports malaise and Denies poor appetite Eyes: Eyes: Reports no additional eye complaints, Denies blurry vision, Denies change in vision, Denies irritation, Denies itchy eyes and Denies photophobia ENT: Reports system reviewed and no additional complaints, except as documented, Reports Normal hearing present, Denies change in voice, Denies dysphagia, Denies vertigo, Denies dizziness, Denies ear discharge, Denies headache(s), Denies hearing loss, Denies hoarseness, Denies nasal congestion, Denies neck pain, Denies sinus pressure, Reports sore throat and Denies throat swelling Cardiovascular: Cardiovascular: Reports no additional cardiovascular complaints, Reports chest pain ( With exertion), Denies syncope, Denies rapid heart rate, Reports irregular heart rhythm ( chronic atrial fibrillation), Reports leg edema ( worsening swelling of the lower extremities up to the thighs), Reports dyspnea ( at rest and with exertion) and Denies slow heart rate Respiratory: Respiratory: Reports no additional respiratory complaints, Reports cough ( mostly clear phlegm), Reports dyspnea, Denies stridor and Reports wheezing ( at rest and with exertion) Gastrointestinal: Gastrointestinal: Reports no additional gastrointestinal complaints, Reports abdominal pain, Denies melena ( no black tarry stools, no melena, no hematochezia), Denies hematochezia, Denies dysphagia, Denies diarrhea, Denies nausea and Denies vomiting Genitourinary: Genitourinary: Denies hematuria, Denies urinary frequency, Denies dysuria, Denies flank pain and Denies urinary urgency Musculoskeletal: Musculoskeletal: Reports no additional musculoskele
[2022-10-31 12:21] LABS: Hemoglobin 5.5 g/dL (11.7-13.8)
[2022-10-31 12:31] LABS: INR 1.6; Partial Thromboplastin Time 27.6 SEC (23.90-30.70); Prothrombin Time 16.7 Seconds (9.50-12.10)
[2022-10-31 12:36] LABS: Troponin I 4.4 ng/L (0.00-60.4)
[2022-10-31] MEDS: SODIUM CHLORIDE 0.9% IV 1,000 ML 999 ML IV CONT (12:38)
[2022-10-31] MEDS: IPRATROPIUM 0.5 MG/ALBUTEROL SULFATE 2.5 MG AMPUL.NEB 3 ML INHALATION (12:38)
[2022-10-31] MEDS: methylPREDNISolone SOD SUCC 125 MG VIAL IV PUSH (12:39)
[2022-10-31] MEDS: SODIUM CHLORIDE 0.9% IV 250 ML 30 ML IV CONT (12:41)
[2022-10-31 12:44] LABS: Magnesium 2.1 mg/dL (1.8-2.4)
--- NOTE | 2022-10-31 12:53 | PC.NURSE ---
blood transfusion consent signed per the pt. voiced understanding.
[2022-10-31 13:02] LABS: Occult Blood Positive (Negative)
[2022-10-31 13:06] LABS: Base Excess ABG 5.3 mmol/L (0-2); HCO3 ABG 30.5 mmol/L (23-29); Oxygen Content ABG 8.6 %vol (16.0-22.0); Oxygen Saturation ABG 89.1 % (95-97); Oxyhemoglobin 84.3 % (94-100); PCO2 ABG 48.9 mmHg (35-45); PO2 ABG 58.9 mmHg (75-85); Total Hemoglobin 7.2 g/dL (12.0-18.0); pH ABG 7.41 (7.35-7.45)
[2022-10-31 13:07] LABS: CRP 0.9 mg/dL (0.0-0.9)
[2022-10-31 13:09] LABS: Device ROOM AIR; Modified Allen's Test Pass; Site Drawn RIGHT RADIAL
[2022-10-31 13:23] LABS: Erythrocyte Sedimentation Rate 26 mm/hr (0-20)
--- NOTE | 2022-10-31 13:31 | PC.NURSE ---
pt resting per cot, call mitchell in reach. no needs at this time. awaiting blood availability
[2022-10-31 13:57] LABS: Influenza A QL RT-PCR Negative (Negative); Influenza B QL RT-PCR Negative (Negative); SARS-CoV-2 RNA PCR Negative (Negative)
[2022-10-31 14:00] LABS: RSV RNA, RT-PCR Negative (Negative)
[2022-10-31 14:14] LABS: Strep Group A RT-PCR NOT DETECTED (Negative)
[2022-10-31] MEDS: PANTOPRAZOLE SODIUM IV 40 MG VIAL 80 MG IV PUSH (15:04)
--- NOTE | 2022-10-31 15:45 | PC.NURSE ---
unit #1 started at 1540[address] per dr car, infuse over 2 hours. bag states 280ml. blood infusing at 140ml/hr. pt resting per cot. eyes closed. RN in room
--- NOTE | 2022-10-31 16:32 | PC.NURSE ---
pt sleeping, returns , sitting in room.
--- NOTE | 2022-10-31 16:58 | PC.NURSE ---
pt up to bedside commode with ck brooks.
[2022-10-31 17:21] LABS: Add Urine Microscopic? YES; Appearance Urine Cloudy (Clear); Bilirubin Urine Negative (Negative); Blood Urine 3+ (Negative); Color Urine Yellow (Yellow); Glucose Urine UA Negative (Negative); Ketones Urine Negative (Negative); Leukocyte Esterase Ur Trace LEU/UL (Negative); Nitrate Urine Negative (Negative); Protein Urine 1+ (Negative); Specific Grav Ur 1.015 (1.010-1.020)
[2022-10-31 17:24] LABS: Squamous Epithelial Cell Urine Few /hpf (Few)
[2022-10-31 17:25] LABS: Bacteria Urine 4+ /hpf
[2022-10-31 18:36] LABS: Basophils Absolute Auto 0.01 K/mm3 (0.00-0.10); Basophils Percent Auto 0.1 % (0.0-1.0); Hematocrit 24.1 % (35.0-42.0); Immature Granulocyte Absolute 0.06 K/mm3 (0.00-0.00); Immature Granulocyte Percent A 0.7 % (0.0-0.0); Lymphocytes Absolute Auto 0.72 K/mm3 (1.10-4.50); Lymphocytes Percent Auto 8.6 % (18.0-42.0); Mean Corpuscular HGB Conc 27.4 g/dL (32.0-36.0); Mean Corpuscular Hemoglobin 21.2 pg (27.0-31.0); Mean Corpuscular Volume 77.2 fL (78.0-102.0); Mean Platelet Volume 10.3 fl (9.2-11.8); Monocytes Absolute Auto 0.13 K/mm3 (0.10-0.90); Monocytes Percent Auto 1.6 % (2.0-11.0); Neutrophils Absolute Auto 7.4 K/mm3 (1.7-7.2); Nucleated Red Blood Cells Absolute Auto 0.22 K/mm3 (0.00-0.00); Nucleated Red Blood Cells Perc 2.6 % (0-0.0); Platelet Count Result 360 K/mm3 (150-420); Red Blood Count 3.12 M/mm3 (4.20-5.40); Red Cell Distribution Width 20.2 % (11.6-14.4); White Blood Count 8.3 K/mm3 (4.8-10.8)
[2022-10-31 18:37] LABS: Hemoglobin 6.6 g/dL (11.7-13.8)
[2022-10-31 19:00] LABS: Alanine Aminotransferase 103 U/L (14-59); Albumin Level 2.8 g/dL (3.4-5.0); Alkaline Phosphatase 265 U/L (46-116); Anion Gap 9 mmol/L (8-16); Aspartate Amino Transferase 45 U/L (15-37); Bilirubin,Total 0.9 mg/dL (0.00-1.00); Blood Urea Nitrogen 28 mg/dL (7-18); Calcium 8.1 mg/dL (8.5-10.1); Carbon Dioxide 30 mmol/L (21-32); Chloride 96 mmol/L (98-108); Estimated CRCL calculation 22 ml/min; Estimated Glomerular Filt Rate 24; Glucose 146 mg/dL (70-99); Osmolality Calculated 288 mOsm/kg (285-295); Potassium 3.3 mmol/L (3.5-5.1); Sodium 135 mmol/L (136-145); Total Protein 6.2 g/dL (6.4-8.2)
[2022-10-31 19:02] LABS: Troponin I 33.6 ng/L (0.00-60.4)
[2022-10-31] MEDS: POTASSIUM BICARBONATE 25 MEQ TABEF PO (19:31)
--- NOTE | 2022-10-31 19:38 | PC.NURSE ---
pt sitting up in chair awaiting arrival of [facility] for [facility] to [facility]. pt alert and oriented x4. notified of trasnfer.
== END 2022-10-31 19:56 | disposition short-term general hospital (02) ==
PROVIDERS: Emergency Provider Emergency Medicine; PCP Nurse Practitioner Family
DX: K92.2 Gastrointestinal hemorrhage, unspecified (principal); J44.1 Chronic obstructive pulmonary disease with (acute) exacerbation; D62 Acute posthemorrhagic anemia; D68.32 Hemorrhagic disorder due to extrinsic circulating anticoagulants; R60.9 Edema, unspecified; N17.9 Acute kidney failure, unspecified; E87.6 Hypokalemia; I13.0 Hypertensive heart and chronic kidney disease with heart failure and stage 1 through stage 4 chronic kidney disease, or unspecified chronic kidney disease; I50.9 Heart failure, unspecified; N18.30 Chronic kidney disease, stage 3 unspecified; E78.5 Hyperlipidemia, unspecified; F17.210 Nicotine dependence, cigarettes, uncomplicated; Z79.01 Long term (current) use of anticoagulants; Z79.82 Long term (current) use of aspirin; Z99.81 Dependence on supplemental oxygen
CPT/HCPCS: 36415; 36430; 36600; 71045; 71250; 80053; 81001; 82272; 82805; 83735; 84484; 85025; 85610; 85652; 85730; 86140; 86850; 86900; 86901; 86920; 87040; 87637; 87651; 93005; 94640; 96361; 96365; 96367; 96375; 99285; A9270; C9113; J0456; J0696; J2930; J7030; J7050; P9016

== ENCOUNTER 2022-12-04 10:43 | Outpatient (CLI) | payer MEDICARE, SELFPAY ==
[2022-12-04 10:59] LABS: Basophils Absolute Auto 0.06 K/mm3 (0.00-0.10); Basophils Percent Auto 0.8 % (0.0-1.0); Eosinophils Absolute Auto 0.08 K/mm3 (0.02-0.50); Eosinophils Percent Auto 1.1 % (1.0-6.0); Hematocrit 26.7 % (35.0-42.0); Hemoglobin 7.4 g/dL (11.7-13.8); Immature Granulocyte Absolute 0.03 K/mm3 (0.00-0.00); Immature Granulocyte Percent A 0.4 % (0.0-0.0); Lymphocytes Absolute Auto 1.92 K/mm3 (1.10-4.50); Lymphocytes Percent Auto 25.7 % (18.0-42.0); Mean Corpuscular HGB Conc 27.7 g/dL (32.0-36.0); Mean Corpuscular Hemoglobin 21.6 pg (27.0-31.0); Mean Corpuscular Volume 78.1 fL (78.0-102.0); Mean Platelet Volume 8.9 fl (9.2-11.8); Monocytes Absolute Auto 0.74 K/mm3 (0.10-0.90); Monocytes Percent Auto 9.9 % (2.0-11.0); Neutrophils Absolute Auto 4.6 K/mm3 (1.7-7.2); Neutrophils Percent Auto 62.1 % (50.0-70.0); Platelet Count Result 339 K/mm3 (150-420); Red Blood Count 3.42 M/mm3 (4.20-5.40); Red Cell Distribution Width 23.8 % (11.6-14.4); White Blood Count 7.5 K/mm3 (4.8-10.8)
[2022-12-04 11:08] LABS: Hemoglobin A1C 5.6 % (<5.7)
[2022-12-04 11:13] LABS: Creatinine Urine 30.59 mg/dL (40-278); Microalbumin Urine Random 45.6 mg/L
[2022-12-04 11:19] LABS: Alanine Aminotransferase 19 U/L (14-59); Albumin Level 3.5 g/dL (3.4-5.0); Alkaline Phosphatase 300 U/L (46-116); Anion Gap 9 mmol/L (8-16); Aspartate Amino Transferase < 10 U/L (15-37); Bilirubin,Total 0.8 mg/dL (0.00-1.00); Blood Urea Nitrogen 17 mg/dL (7-18); Calcium 8.8 mg/dL (8.5-10.1); Carbon Dioxide 30 mmol/L (21-32); Chloride 98 mmol/L (98-108); Cholesterol 89 mg/dL (0-200); Estimated Glomerular Filt Rate 40; Glucose 120 mg/dL (70-99); HDL Direct 31 mg/dL (40-60); LDL Cholesterol Calculated 40 mg/dL (<130); Osmolality Calculated 286 mOsm/kg (285-295); Potassium 4.5 mmol/L (3.5-5.1); Sodium 137 mmol/L (136-145); Total Protein 7.2 g/dL (6.4-8.2); Triglycerides 88 mg/dL (0-150)
== END 2022-12-04 10:44 | disposition home or self-care (01) ==
LOC: CHSLAB 10:44
PROVIDERS: PCP Nurse Practitioner Family; Visit Provider Nurse Practitioner Adult Health
DX: N18.30 Chronic kidney disease, stage 3 unspecified (principal); I50.32 Chronic diastolic (congestive) heart failure; I12.9 Hypertensive chronic kidney disease with stage 1 through stage 4 chronic kidney disease, or unspecified chronic kidney disease; E66.3 Overweight; D64.9 Anemia, unspecified; R73.09 Other abnormal glucose
CPT/HCPCS: 36415; 80053; 80061; 82043; 83036; 85025

== ENCOUNTER 2022-12-06 11:33 | Outpatient (CLI) | payer MEDICARE, SELFPAY ==
[2022-12-06 11:44] LABS: Basophils Absolute Auto 0.04 K/mm3 (0.00-0.10); Basophils Percent Auto 0.5 % (0.0-1.0); Eosinophils Absolute Auto 0.07 K/mm3 (0.02-0.50); Eosinophils Percent Auto 0.9 % (1.0-6.0); Hematocrit 24.9 % (35.0-42.0); Hemoglobin 7.1 g/dL (11.7-13.8); Immature Granulocyte Absolute 0.02 K/mm3 (0.00-0.00); Immature Granulocyte Percent A 0.3 % (0.0-0.0); Immature Reticulocyte Fraction 41.2 % (2.0-16.52); Lymphocytes Absolute Auto 1.56 K/mm3 (1.10-4.50); Lymphocytes Percent Auto 19.6 % (18.0-42.0); Mean Corpuscular HGB Conc 28.5 g/dL (32.0-36.0); Mean Corpuscular Hemoglobin 22.5 pg (27.0-31.0); Mean Corpuscular Volume 78.8 fL (78.0-102.0); Mean Platelet Volume 9.1 fl (9.2-11.8); Monocytes Absolute Auto 0.76 K/mm3 (0.10-0.90); Monocytes Percent Auto 9.5 % (2.0-11.0); Neutrophils Absolute Auto 5.5 K/mm3 (1.7-7.2); Neutrophils Percent Auto 69.2 % (50.0-70.0); Platelet Count Result 261 K/mm3 (150-420); Red Blood Count 3.16 M/mm3 (4.20-5.40); Red Cell Distribution Width 23.3 % (11.6-14.4); Reticulocyte Hemoglobin Conten 17.3 pg (28.0-35.0); Reticulocyte Percent 1.67 % (0.50-1.50); Reticulocytes Absolute 0.05 M/mm3 (0.02-0.1)
[2022-12-06 12:14] LABS: Albumin Level 3.5 g/dL (3.4-5.0); Anion Gap 11 mmol/L (8-16); Blood Urea Nitrogen 17 mg/dL (7-18); Calcium 9.1 mg/dL (8.5-10.1); Carbon Dioxide 29 mmol/L (21-32); Chloride 98 mmol/L (98-108); Estimated Glomerular Filt Rate 38; Glucose 109 mg/dL (70-99); Osmolality Calculated 288 mOsm/kg (285-295); Potassium 5.1 mmol/L (3.5-5.1); Sodium 138 mmol/L (136-145)
== END 2022-12-06 11:34 | disposition home or self-care (01) ==
LOC: CHSLAB 11:34
PROVIDERS: PCP Family Medicine; Visit Provider Nurse Practitioner Family
DX: N18.30 Chronic kidney disease, stage 3 unspecified (principal); Z87.19 Personal history of other diseases of the digestive system
CPT/HCPCS: 36415; 80069; 85025; 85046

== ENCOUNTER 2022-12-24 10:21 | Outpatient (CLI) | payer MEDICARE, SELFPAY ==
--- NOTE | ~2022-12-24 | US_ITS ---
EXAMINATION: US renal BI DATE: 12/24/2022 10:52 INDICATION: Chronic kidney disease, stage IIIB. TECHNIQUE: Multiple ultrasound grayscale images of the kidneys were obtained. COMPARISON: None. FINDINGS: The right kidney measures 11.5 x 6.3 x 6.4 cm. The left kidney measures 7.5 x 2.9 x 3.9 cm. The left kidney demonstrates increased parenchymal echogenicity, consistent with nephropathy. There are 2 hypo echoic masses in the left kidney with the larger measuring 10 mm . There is no hydronephrosis. The bl adder is normal. IMPRESSION: 1. Moderate atrophy of left kidney. No hydronephrosis. 2. Two left kidney masses with the larger measuring 10 mm, most likely cysts, but neoplasm cannot be excluded. Consider abdomen MRI without and with contrast. Reviewed, dictated and finalized at location A. IMPRESSION: 1. Moderate atrophy of left kidney. No hydronephrosis. 2. Two left kidney masses with the larger measuring 10 mm, most likely cysts, b ut neoplasm cannot be excluded. Consider abdomen MRI without and with contrast.
== END 2022-12-24 10:22 | disposition home or self-care (01) ==
LOC: CHSIMG 10:22
PROVIDERS: PCP Family Medicine; Visit Provider Internal Medicine Nephrology
DX: I12.9 Hypertensive chronic kidney disease with stage 1 through stage 4 chronic kidney disease, or unspecified chronic kidney disease (principal); N18.32 Chronic kidney disease, stage 3b; N28.89 Other specified disorders of kidney and ureter
CPT/HCPCS: 76775

== ENCOUNTER 2023-01-09 11:38 | Emergency (ER) | payer MEDICARE, OTHER, SELFPAY ==
[2023-01-09] VITALS (53 sets, daily range): BP systolic 92–130; BP diastolic 37–75; PULSE 90–116; RESP 15–37; TEMP 36.2–37.2; O2SAT 93–100
--- NOTE | ~2023-01-09 | XR_ITS ---
XR chest 1V portable DATE: 01/09/2023 12:20 INDICATION: Weakness TECHNIQUE: Portable AP chest on January 09, 2023 at 1213 hours COMPARISON: October 31, 2022 CT chest October 31, 2022 portable AP chest FINDINGS: Cardiomegaly. Aortic arch calcification, mild aortic unfolding. No hilar or mediastinal enlargement. There is mild infiltrate and/or atelectasis in the lower lung zones, primarily on the right. No pleur al effusion or pulmonary vascular congestion or pneumothorax. Osteopenia. Dextroscoliosis of the thoracic spine. IMPRESSION: Cardiomegaly, aortic atherosclerosis Mild infiltrate or atelectasis at the lung bases, primarily on the right Reviewed, dictated and finalized at location B.
--- NOTE | 2023-01-09 11:59 | ECG_ITS ---
Measurements Intervals [place] Rate: 98 P: MO: 0 QRS: 24 QRSD: 103 T: 63 QT: 366 QTc: 469 Interpretive Statements ATRIAL FIBRILLATION WITH VENTRICULAR PREMATURE COMPLEXES POOR R-WAVE PROGRESSION NONSPECIFIC T-WAVE ABNORMALITY ABNORMAL RHYTHM ECG COMPARED TO ECG 10/31/2022 12:48:51 PVCS ARE NOW PRESENT Electronically Signed On 01-10-2023 7:46:30 CDT by Lawrence Moe M.D.
--- NOTE | 2023-01-09 12:09 | ED.GENADULT ---
HPI - General Adult General Chief complaint: Weakness Stated complaint: weakness; low blood pressure Time Seen by Provider: 01/09/23 11:46 History of Present Illness HPI narrative: The patient is a 72-year-old female with multiple comorbidities including atrial fibrillation on apixaban and aspirin, psoriasis, gout, obstructive sleep apnea, hypertension, chronic kidney disease stage IIIB, COPD on inhalers and nebulized therapies, hyponatremia, GERD, low back pain, congestive heart failure on Lasix initially 80 mg b.i.d. now 60 mg b.i.d., and hyperlipidemia. She has a history of a GI bleed and had a hemoglobin as low as 5.5 on 10/31/2022. She had been on both metoprolol and nebivolol but the metoprolol has been discontinued a few days ago. She remains on nebivolol. This was done due to hypotension. She was seen here 10/31/2022 for a GI bleed, and received 2 u PRBC. She was transferred to [facility] ICU for a workup (no further details are available from that admission). Over the last 3 days, the patient has had systolic blood pressures less than 100 by her home blood pressure checks. Two days ago, the blood pressure was 91/51 with a pulse of 110. Yesterday the blood pressure was 90/50 with a pulse of 72. This morning the blood pressure was 88/47 with pulse of 63. She comes here for further evaluation per PCP. She does feel generalized weakness, decreased oral intake, and some shortness of breath. Also has mild diffuse abdominal discomfort. Also has had dizziness since this AM. No nausea or vomiting. No falls. Does not feel well. No urinary symptoms or URI symptoms. No hematochezia or melena. Related Data Home Medications Medication Instructions Recorded Confirmed apixaban 5 mg tablet (Eliquis) 5 mg PO BID 08/15/19 01/09/23 aspirin 81 mg tablet,delayed 81 mg PO DAILY 08/15/19 01/09/23 release rosuvastatin 40 mg tablet (Crestor) 40 mg PO DAILY 08/15/19 01/09/23 ascorbate calcium (vitamin C) 500 mg PO DAILY 07/04/20 01/09/23 ascorbate calcium (vitamin C) 500 500 mg PO DAILY 11/17/22 01/09/23 mg tablet furosemide 80 mg tablet 80 mg PO BID 11/17/22 01/09/23 multivitamin 1 tablet PO DAILY 11/17/22 01/09/23 pantoprazole 40 mg tablet,delayed 40 mg PO BID 11/17/22 01/09/23 release potassium chloride 20 mEq 40 meq PO BID 11/17/22 01/09/23 tablet,extended release tiotropium bromide 2.5 2 puff inhalation DAILY 11/17/22 01/09/23 mcg/actuation mist for inhalation (Spiriva Respimat) Allergies Allergy/AdvReac Type Severity Reaction Status Date / Time codeine Allergy Severe Rash Verified 01/09/23 11:50 iron Allergy Intermediate Abdominal Verified 01/09/23 11:50 Pain Review of Systems Review of Systems: All systems reviewed & are unremarkable except as noted in HPI and below Constitutional: Constitutional: Reports as per HPI, Reports no additional constitutional complaints, Denies chills, Denies excessive sweating, Reports fatigue, Denies fever(s), Denies headache(s) and Reports weakness ( Generalized) Eyes: Eyes: Reports as per HPI, Reports no additional eye complaints, Denies change in vision and Denies photophobia ENT: Reports system reviewed and no additional complaints, except as documented, Reports as per HPI ( decreased oral intake), Denies dysphagia, Denies vertigo, Reports dizziness, Denies headache(s), Denies lip swelling, Denies nasal congestion, Denies sore throat, Denies throat swelling and Denies tongue swelling Cardiovascular: Cardiovascular: Reports as per HPI, Reports no additional cardiovascular complaints, Denies chest pain, Denies syncope, Denies rapid heart rate and Reports dyspnea Respiratory: Respiratory: Reports as per HPI, Reports no additional respiratory complaints, Denies chest congestion, Denies cough, Reports dyspnea and Denies wheezing Gastrointestinal: Gastrointestinal: Reports as per HPI, Reports no additional gastrointestinal complaints, Reports abdominal pain ( d
[2023-01-09] MEDS: SODIUM CHLORIDE 0.9% IV 1,000 ML 999 ML IV CONT (12:13)
[2023-01-09 12:25] LABS: Basophils Absolute Auto 0.02 K/mm3 (0.00-0.10); Basophils Percent Auto 0.3 % (0.0-1.0); Eosinophils Absolute Auto 0.03 K/mm3 (0.02-0.50); Eosinophils Percent Auto 0.4 % (1.0-6.0); Immature Granulocyte Absolute 0.03 K/mm3 (0.00-0.00); Immature Granulocyte Percent A 0.4 % (0.0-0.0); Lymphocytes Absolute Auto 1.89 K/mm3 (1.10-4.50); Lymphocytes Percent Auto 24.2 % (18.0-42.0); Mean Corpuscular HGB Conc 26.1 g/dL (32.0-36.0); Mean Corpuscular Hemoglobin 19.4 pg (27.0-31.0); Mean Corpuscular Volume 74.2 fL (78.0-102.0); Mean Platelet Volume 10.2 fl (9.2-11.8); Monocytes Absolute Auto 0.71 K/mm3 (0.10-0.90); Monocytes Percent Auto 9.1 % (2.0-11.0); Neutrophils Absolute Auto 5.1 K/mm3 (1.7-7.2); Neutrophils Percent Auto 65.6 % (50.0-70.0); Nucleated Red Blood Cells Absolute Auto 0.04 K/mm3 (0.00-0.00); Nucleated Red Blood Cells Perc 0.5 % (0-0.0); Platelet Count Result 265 K/mm3 (150-420); Red Blood Count 2.17 M/mm3 (4.20-5.40); White Blood Count 7.8 K/mm3 (4.8-10.8)
[2023-01-09 12:30] LABS: Hemoglobin 4.2 g/dL (11.7-13.8)
[2023-01-09 12:31] LABS: Hematocrit 16.1 % (35.0-42.0)
--- NOTE | 2023-01-09 12:31 | PC.NURSE ---
lab reports hgb 4.2 and hct 16.1, erp is notified.
[2023-01-09 12:50] LABS: Lactic Acid Reflex 2.2 mmol/L (0.4-2.0)
[2023-01-09 12:55] LABS: Alanine Aminotransferase 26 U/L (14-59); Albumin Level 2.8 g/dL (3.4-5.0); Alkaline Phosphatase 261 U/L (46-116); Anion Gap 10 mmol/L (8-16); Aspartate Amino Transferase 12 U/L (15-37); Bilirubin,Total 1.1 mg/dL (0.00-1.00); Blood Urea Nitrogen 21 mg/dL (7-18); Calcium 8.3 mg/dL (8.5-10.1); Carbon Dioxide 29 mmol/L (21-32); Chloride 101 mmol/L (98-108); Estimated CRCL calculation 25 ml/min; Estimated Glomerular Filt Rate 32; Glucose 114 mg/dL (70-99); Magnesium 2.1 mg/dL (1.8-2.4); NT Pro B Type Natriuretic Pept 3208 pg/mL (0-125); Osmolality Calculated 294 mOsm/kg (285-295); Potassium 3.3 mmol/L (3.5-5.1); Sodium 140 mmol/L (136-145); Troponin I 26.3 ng/L (0.00-60.4)
[2023-01-09 12:59] LABS: INR 1.3; Partial Thromboplastin Time 26.7 SEC (23.90-30.70)
[2023-01-09 13:02] LABS: Appearance Urine Clear (Clear); Bilirubin Urine Negative (Negative); Blood Urine Negative (Negative); Color Urine Yellow (Yellow); Glucose Urine UA Negative (Negative); Ketones Urine Negative (Negative); Leukocyte Esterase Ur Negative LEU/UL (Negative); Nitrate Urine Negative (Negative); Protein Urine 1+ (Negative); pH Urine 6.5 (5.0-8.0)
[2023-01-09 13:04] LABS: Amylase 55 U/L (25-115); Lipase 39 U/L (16-77)
[2023-01-09 13:12] LABS: Add Urine Microscopic? YES; Bacteria Urine Trace /hpf; RBC Urine 0-2 /hpf (0-2); Squamous Epithelial Cell Urine Few /hpf (Few); WBC Urine 0-3 /hpf (0-3)
[2023-01-09 13:17] LABS: Occult Blood Positive (Negative)
[2023-01-09 13:37] LABS: SARS-CoV-2 RNA PCR Negative (Negative)
[2023-01-09] MEDS: SODIUM CHLORIDE 0.9% IV 250 ML 30 ML IV CONT (13:55)
[2023-01-09] MEDS: PANTOPRAZOLE SODIUM IV 40 MG VIAL IV PUSH (13:56)
--- NOTE | 2023-01-09 14:11 | PC.NURSE ---
Blood transfusion started at this time, rn at bedside for 15 minutes
[2023-01-09] MEDS: POTASSIUM BICARBONATE 25 MEQ TABEF PO (15:03)
[2023-01-09 15:22] LABS: Reflex Lactic Acid Yes or No Add Lactic
[2023-01-09] MEDS: SODIUM CHLORIDE 0.9% IV 250 ML 30 ML (17:54)
--- NOTE | 2023-01-09 18:00 | PC.NURSE ---
blood transfusion started.
--- NOTE | 2023-01-09 18:17 | PC.NURSE ---
RN at bedside for 1st 15 minutes of blood transfusion, no signs or symptoms of reaction at this time.
--- NOTE | 2023-01-09 19:56 | PC.NURSE ---
1850 got report from Jody, Jody told group underwriter was waiting for [facility] to call with a room and number for report. 1950 [address] patient bed side, spouse told group underwriter he had the room number and was waiting for the ambulance. Practice Management Consultant calling [facility] transfer center to find status/
[2023-01-09 20:31] LABS: Hematocrit 20.2 % (35.0-42.0)
[2023-01-09 20:54] LABS: Lactic Acid 0.9 mmol/L (0.4-2.0)
[2023-01-09 20:57] LABS: Hemoglobin 5.8 g/dL (11.7-13.8)
== END 2023-01-09 20:46 | disposition short-term general hospital (02) ==
PROVIDERS: Emergency Provider Emergency Medicine; PCP Family Medicine
DX: K92.2 Gastrointestinal hemorrhage, unspecified (principal); D64.9 Anemia, unspecified; D68.32 Hemorrhagic disorder due to extrinsic circulating anticoagulants; I95.89 Other hypotension; E87.6 Hypokalemia; I13.0 Hypertensive heart and chronic kidney disease with heart failure and stage 1 through stage 4 chronic kidney disease, or unspecified chronic kidney disease; I50.9 Heart failure, unspecified; N18.32 Chronic kidney disease, stage 3b; I48.91 Unspecified atrial fibrillation; E78.5 Hyperlipidemia, unspecified; J44.9 Chronic obstructive pulmonary disease, unspecified; F17.210 Nicotine dependence, cigarettes, uncomplicated; Z79.01 Long term (current) use of anticoagulants; Z79.82 Long term (current) use of aspirin; Z20.822 Contact with and (suspected) exposure to COVID-19
CPT/HCPCS: 36415; 36430; 71045; 80053; 81001; 82150; 82272; 83605; 83690; 83735; 83880; 84484; 85014; 85018; 85025; 85610; 85730; 86850; 86900; 86901; 86920; 93005; 96361; 96374; 99285; A9270; C9113; J7030; J7050; P9016; U0003; U0005

== ENCOUNTER 2023-01-26 15:07 | Outpatient (CLI) | payer MEDICARE, OTHER, SELFPAY ==
[2023-01-26 15:26] LABS: Hematocrit 26.2 % (35.0-42.0); Hemoglobin 7.3 g/dL (11.7-13.8); Immature Platelet Fraction Pct 3.3 % (1.0-7.0); Mean Corpuscular HGB Conc 27.9 g/dL (32.0-36.0); Mean Corpuscular Hemoglobin 23.5 pg (27.0-31.0); Mean Corpuscular Volume 84.2 fL (78.0-102.0); Mean Platelet Volume 10.1 fl (9.2-11.8); Platelet Count Result 545 K/mm3 (150-420); Red Blood Count 3.11 M/mm3 (4.20-5.40); Red Cell Distribution Width 24.4 % (11.6-14.4); White Blood Count 9.6 K/mm3 (4.8-10.8)
[2023-01-26 16:15] LABS: Alanine Aminotransferase 21 U/L (14-59); Albumin Level 3.2 g/dL (3.4-5.0); Alkaline Phosphatase 288 U/L (46-116); Anion Gap 7 mmol/L (8-16); Aspartate Amino Transferase 12 U/L (15-37); Bilirubin,Total 0.6 mg/dL (0.00-1.00); Blood Urea Nitrogen 16 mg/dL (7-18); Calcium 8.9 mg/dL (8.5-10.1); Carbon Dioxide 30 mmol/L (21-32); Chloride 103 mmol/L (98-108); Estimated Glomerular Filt Rate 41; Ferritin 9 ng/mL (8-252); Glucose 95 mg/dL (70-99); Osmolality Calculated 291 mOsm/kg (285-295); Potassium 5.6 mmol/L (3.5-5.1); Sodium 140 mmol/L (136-145); Total Protein 6.5 g/dL (6.4-8.2)
[2023-01-26 16:46] LABS: Occult Blood Positive (Negative)
== END 2023-01-26 15:08 | disposition home or self-care (01) ==
LOC: CHSLAB 15:10
PROVIDERS: PCP Family Medicine; Visit Provider Family Medicine
DX: I48.0 Paroxysmal atrial fibrillation (principal); I12.9 Hypertensive chronic kidney disease with stage 1 through stage 4 chronic kidney disease, or unspecified chronic kidney disease; D50.9 Iron deficiency anemia, unspecified; Z87.19 Personal history of other diseases of the digestive system
CPT/HCPCS: 36415; 80053; 82272; 82728; 83735; 85027; 85055

== ENCOUNTER 2023-01-27 11:11 | Outpatient (CLI) | payer MEDICARE, OTHER, SELFPAY ==
[2023-01-27 11:24] LABS: Hematocrit 24.8 % (35.0-42.0); Mean Corpuscular HGB Conc 27.8 g/dL (32.0-36.0); Mean Corpuscular Hemoglobin 23.4 pg (27.0-31.0); Mean Corpuscular Volume 84.1 fL (78.0-102.0); Platelet Count Result 467 K/mm3 (150-420); Red Blood Count 2.95 M/mm3 (4.20-5.40); Red Cell Distribution Width 24.2 % (11.6-14.4)
[2023-01-27 11:29] LABS: Hemoglobin 6.9 g/dL (11.7-13.8)
== END 2023-01-27 11:12 | disposition home or self-care (01) ==
LOC: CHSLAB 11:13
PROVIDERS: PCP Family Medicine; Visit Provider Family Medicine
DX: D50.9 Iron deficiency anemia, unspecified (principal)
CPT/HCPCS: 36415; 85027

== ENCOUNTER 2023-01-27 13:56 | Observation (INO) | payer MEDICARE, OTHER, SELFPAY ==
[2023-01-27] VITALS (14 sets, daily range): BP systolic 114–138; BP diastolic 54–88; PULSE 74–118; RESP 16–21; TEMP 36.4–37.2; O2SAT 91–100; BMI 28.4
--- NOTE | 2023-01-27 14:29 | ED.GENADULT ---
HPI - General Adult General Chief complaint: GI Bleed Stated complaint: low Hgb Time Seen by Provider: 01/27/23 14:00 Source: patient and family Mode of arrival: ambulatory Limitations: no limitations History of Present Illness HPI narrative: Six weeks ago the patient had a hemoglobin of 4+ and rents transfer to an outside hospital where she went her went to colonoscopy EGD and the Physicians never found out where she was bleeding from After spending 15 days air. That she got readmitted again 2 weeks ago to another facility for low hemoglobin. She got transfused in was discharged home. She has been on Eliquis for AFib this whole time. Yesterday she saw Dr. christoph eaton in the office she was feeling tired and fatigued and had similar symptoms when she had a low hemoglobin. Her hemoglobin was checked and was 7.3. Dr. Sorto told her to go the emergency department and get transfused but she did not. She had another hemoglobin done this morning which was 6.9 and now presents emergency room for treatment. Patient is feeling tired and fatigued she has got her chronic bilateral hip pain and back pain and left lower abdominal pain. She had a black stool about an hour prior to coming to the emergency department. Dr. Sorto told her to stop the Eliquis so her last dose of that was yesterday. Related Data Home Medications Medication Instructions Recorded Confirmed apixaban 5 mg tablet (Eliquis) 5 mg PO BID 08/15/19 01/27/23 rosuvastatin 40 mg tablet (Crestor) 40 mg PO DAILY 08/15/19 01/27/23 ascorbate calcium (vitamin C) 500 mg PO DAILY 07/04/20 01/27/23 ascorbate calcium (vitamin C) 500 500 mg PO DAILY 11/17/22 01/27/23 mg tablet multivitamin 1 tablet PO DAILY 11/17/22 01/27/23 pantoprazole 40 mg tablet,delayed 40 mg PO BID 11/17/22 01/27/23 release potassium chloride 20 mEq 40 meq PO BID 11/17/22 01/27/23 tablet,extended release furosemide 20 mg tablet 60 mg PO BID 01/20/23 01/27/23 metoprolol succinate 25 mg capsule 50 mg PO DAILY 01/26/23 01/27/23 sprinkle, ext. release 24 hr Allergies Allergy/AdvReac Type Severity Reaction Status Date / Time codeine Allergy Severe Rash Verified 01/27/23 14:05 iron Allergy Intermediate Abdominal Verified 01/27/23 14:05 Pain Review of Systems Constitutional: Constitutional: Reports fatigue, Denies fever(s) and Reports weakness Eyes: Eyes: Reports no additional eye complaints ENT: Reports system reviewed and no additional complaints, except as documented, Denies dizziness, Denies epistaxis and Denies nasal congestion Cardiovascular: Cardiovascular: Reports no additional cardiovascular complaints and Denies chest pain Respiratory: Respiratory: Reports no additional respiratory complaints Gastrointestinal: Gastrointestinal: Reports no additional gastrointestinal complaints Genitourinary: Genitourinary: Reports no additional female genitourinary complaints and Denies hematuria Musculoskeletal: Musculoskeletal: Reports back pain Comments: bilateral hip pain Integumentary/Breasts: Skin/Breast: Denies rash Neurologic: Denies dizziness, Denies focal weakness and Reports weakness Hematologic/Lymphatic: Hematologic/Lymphatic: Denies easy bleeding and Denies easy bruising PMFSH Past Medical History Medical History Atrial fibrillation CHF (congestive heart failure) COPD (chronic obstructive pulmonary disease) HTN (hypertension) Hyperlipemia Overweight Psoriasis Sleep apnea Tobacco dependence Surgical History Surgical History Hx of cholecystectomy Hx of hysterectomy Hx of tonsillectomy Family History Family History Mother Family history of chronic obstructive pulmonary disease Other Family history of arthritis Family history of heart disease in male family member before age 55 Hype
[2023-01-27 15:02] LABS: Immature Platelet Fraction Pct 3.6 % (1.0-7.0); Mean Corpuscular HGB Conc 28.8 g/dL (32.0-36.0); Mean Corpuscular Hemoglobin 23.8 pg (27.0-31.0); Mean Corpuscular Volume 82.8 fL (78.0-102.0); Mean Platelet Volume 10.2 fl (9.2-11.8); Platelet Count Result 552 K/mm3 (150-420); Red Cell Distribution Width 24.3 % (11.6-14.4); White Blood Count 8.9 K/mm3 (4.8-10.8)
--- NOTE | 2023-01-27 15:04 | PC.NURSE ---
lab reports hgb 6.9, erp is made aware.
[2023-01-27 15:05] LABS: Hemoglobin 6.9 g/dL (11.7-13.8)
[2023-01-27] MEDS: SODIUM CHLORIDE 0.9% IV 250 ML 30 ML IV CONT (15:09)
[2023-01-27 15:16] LABS: Alanine Aminotransferase 20 U/L (14-59); Albumin Level 3.1 g/dL (3.4-5.0); Alkaline Phosphatase 265 U/L (46-116); Anion Gap 9 mmol/L (8-16); Aspartate Amino Transferase < 10 U/L (15-37); Bilirubin,Total 0.7 mg/dL (0.00-1.00); Blood Urea Nitrogen 15 mg/dL (7-18); Calcium 8.9 mg/dL (8.5-10.1); Carbon Dioxide 29 mmol/L (21-32); Chloride 101 mmol/L (98-108); Estimated CRCL calculation 31 ml/min; Estimated Glomerular Filt Rate 43; Glucose 98 mg/dL (70-99); Osmolality Calculated 288 mOsm/kg (285-295); Potassium 4.5 mmol/L (3.5-5.1); Sodium 139 mmol/L (136-145); Total Protein 6.9 g/dL (6.4-8.2)
[2023-01-27 15:17] LABS: Partial Thromboplastin Time 21.7 SEC (23.90-30.70); Prothrombin Time 11.4 Seconds (9.50-12.10)
--- NOTE | 2023-01-27 15:24 | PC.NURSE ---
PT tolerating transfusion well, rate increased to 150 mL/hr at this time.
--- NOTE | 2023-01-27 15:25 | PC.NURSE ---
pt is getting blood transfusion at this time. has left. nad noted. vss per monitor. will continue to monitor.
--- NOTE | 2023-01-27 16:15 | PC.NURSE ---
Room assignment 210 received at this time.
[2023-01-27 17:13] LABS: Hematocrit 29.3 % (35.0-42.0); Hemoglobin 8.3 g/dL (11.7-13.8)
--- NOTE | 2023-01-27 17:20 | ADMGEN ---
This patient, Flakita Palomares, was admitted to 2nd Floor Room 210-1. Patient/family oriented to hospital policies and general routines including ID bracelet, bed and alarms, visiting hours, pain management, procedures, bathroom and other care routines, personal items, smoking policy, room service/diet, and visiting hours. Information on how to activate the Rapid Response Team has been discussed. Patient/Family are encouraged to report perceived risks to care and to ask questions if they do not understand what they are told or what they should do.
[2023-01-27] MEDS: SODIUM CHLORIDE 0.9% IV 1,000 ML 100 ML IV CONT (17:30)
[2023-01-27] MEDS: POTASSIUM CHLORIDE 20 MEQ TABLET 40 MEQ PO (17:31)
[2023-01-27] MEDS: FUROSEMIDE 20 MG TABLET 60 MG PO (17:31)
[2023-01-27] MEDS: PANTOPRAZOLE 40 MG TABLET PO (17:32)
[2023-01-27] MEDS: IPRATROPIUM 0.5 MG/ALBUTEROL SULFATE 2.5 MG AMPUL.NEB 3 ML INHALATION ×2 (18:20→23:10)
--- NOTE | 2023-01-27 20:11 | PC.NURSE ---
01/27/23 @ 1999 - systemwide network down. Unable to chart in EMR. Assessment. All systems WNL exceot Respiratory diminished to all bases, O2 nc @ 2.5L baseline. Up with SB assist. Patient A&Ox4. 18g RFA with 100ml NS continuous. \VS 115/59, HR 105 RR 24 SPO2 95% T 97.7
[2023-01-27] MEDS: MONTELUKAST SODIUM 10 MG TABLET PO (20:12)
[2023-01-28] VITALS (15 sets, daily range): BP systolic 115–148; BP diastolic 48–70; PULSE 74–122; RESP 14–24; TEMP 36.4–36.9; O2SAT 86–99
[2023-01-28] MEDS: IPRATROPIUM 0.5 MG/ALBUTEROL SULFATE 2.5 MG AMPUL.NEB 3 ML INHALATION ×4 (05:10→23:40)
--- NOTE | 2023-01-28 06:05 | PC.NURSE ---
Due to erxtensive down time see nurses notes and paperwork in hard copy chart.
[2023-01-28 06:35] LABS: Red Blood Count 2.92 M/mm3 (4.20-5.40); White Blood Count 7.8 K/mm3 (4.8-10.8)
[2023-01-28 06:36] LABS: Hematocrit 24.5 % (35.0-42.0); Mean Corpuscular HGB Conc 28.6 g/dL (32.0-36.0); Mean Corpuscular Volume 83.9 fL (78.0-102.0)
[2023-01-28 06:37] LABS: Mean Platelet Volume 9.6 fl (9.2-11.8); Platelet Count Result 412 K/mm3 (150-420); Red Cell Distribution Width 22.8 % (11.6-14.4)
[2023-01-28 06:44] LABS: Alanine Aminotransferase 17 U/L (14-59); Bilirubin,Total 0.6 mg/dL (0.00-1.00); Calcium 8.3 mg/dL (8.5-10.1); Estimated Glomerular Filt Rate 45; Total Protein 5.9 g/dL (6.4-8.2)
[2023-01-28 06:45] LABS: Anion Gap 6 mmol/L (8-16); Blood Urea Nitrogen 14 mg/dL (7-18); Carbon Dioxide 32 mmol/L (21-32); Chloride 103 mmol/L (98-108); Osmolality Calculated 292 mOsm/kg (285-295); Potassium 4.2 mmol/L (3.5-5.1); Sodium 141 mmol/L (136-145)
[2023-01-28 06:46] LABS: Aspartate Amino Transferase 12 U/L (15-37); Estimated CRCL calculation 33 ml/min; Glucose 93 mg/dL (70-99)
[2023-01-28 06:47] LABS: Albumin Level 2.6 g/dL (3.4-5.0); Alkaline Phosphatase 226 U/L (46-116)
[2023-01-28] MEDS: FLUTICASONE PROPIONATE 0.05% NA SPR 16 GM BTL (*BKC) 1 SPRAY NASAL (08:32)
[2023-01-28] MEDS: UMECLIDINIUM BROMIDE 62.5 MCG ELLIPTA 1 PUFF INHALATION (08:32)
[2023-01-28] MEDS: ASCORBIC ACID 500 MG TABLET PO (08:32)
[2023-01-28] MEDS: POTASSIUM CHLORIDE 20 MEQ TABLET 40 MEQ PO ×2 (08:33→16:59)
[2023-01-28] MEDS: ROSUVASTATIN 10 MG TABLET 40 MG PO (08:33)
[2023-01-28] MEDS: FUROSEMIDE 20 MG TABLET 60 MG PO ×2 (08:33→16:59)
[2023-01-28] MEDS: PANTOPRAZOLE 40 MG TABLET PO ×2 (08:34→16:59)
[2023-01-28] MEDS: MULTIVITAMINS THERAPEUTIC TAB (*BKC) 1 TABLET PO (08:34)
[2023-01-28] MEDS: METOPROLOL SUCCINATE EXT REL 50 MG TABCR PO (09:25)
--- NOTE | 2023-01-28 09:43 | P.PNCROSS_ITS ---
Event Note Event Note Event Note: Called and spoke with Dr. Rubio medical assitant and requesting a phone call b ack he is in procedures left my cell phone Informed her of patient blood levels, amount of blood patient has received and rechecking her at 1030 as well as I have stopped IVF in case it is dilutional. Patient has no s/s of bleeding at this time she is eating and drinking without difficulties PLT count is normal at this time Eliquis has been stopped at this time.
--- NOTE | 2023-01-28 09:43 | PM.IMHP ---
H&P: HPI History of Present Illness Date/Time: 01/28/23 09:43 Chief Complaint: Anemia Narrative: this is a 73-year-old female that presented to the emergency room with increased shortness of breath not feeling very well from week quite faint faint. Patient has a past medical history GI bleed, back pain, hypertension, congestive heart failure, COPD, with oxygen at home, patient also has chronic kidney disease stage 3, peripheral artery disease, chronic diastolic heart failure, hypertension patient has had several hospitalizations she also has been scoped within the last month with no findings of any acute bleeding noted patient COPD where she was sent home with oxygen and she has a nebulizer at home so this is not new she generally has dyspnea on exertion per previous records. The plan is we will monitor patient's anemia she has received 1 unit of blood so far we will continue to monitor q.8 hours and monitor for signs and symptoms of bleeding we will get a hold of her GI doctor for recommendations. Review of Systems Review of Systems: Dyspnea on exertion, dizziness, weakness All systems reviewed & are unremarkable except as noted in HPI and below PMFSH Past Medical History Medical History Atrial fibrillation CHF (congestive heart failure) COPD (chronic obstructive pulmonary disease) HTN (hypertension) Hyperlipemia Overweight Psoriasis Sleep apnea Tobacco dependence Surgical History Surgical History Hx of cholecystectomy Hx of hysterectomy Hx of tonsillectomy Family History Family History Mother Family history of chronic obstructive pulmonary disease Other Family history of arthritis Family history of heart disease in male family member before age 55 Hypertension Social History Social History Years smoked: 53 Smoking status: Smoker, status unknown Tobacco type: cigarettes Second hand tobacco smoke exposure: Yes Alcohol intake: unknown Substance use: never Substance use type: does not use Lack of Transportation: No Lack of Food: Never True Current Housing: I Have Housing Concerned About Future Housing: No Difficulty Paying Gas/Electric Bills: No Difficulty Paying for Meds: No Currently Unemployed: No Education: High School Diploma/GED Difficulty w/ Childcare or Family Care: No Living arrangements: with family Additional living arrangements comments: Gender identity (if verbalized by the patient): Female Spiritual care concerns: No Meds Home Medications and Allergies Home Medications Medication Instructions Recorded Confirmed Type apixaban 5 mg tablet (Eliquis) 5 mg PO BID 08/15/19 01/27/23 History rosuvastatin 40 mg tablet (Crestor) 40 mg PO DAILY 08/15/19 01/27/23 History fluticasone propionate 50 1 spray intranasal DAILY #9.9 mL 03/27/20 01/27/23 Rx mcg/actuation nasal spray,suspension (Allergy Relief (fluticasone)) fexofenadine 60 mg tablet (Radha 60 mg PO Q12H #60 tabs 04/25/20 01/27/23 Rx Allergy) ascorbate calcium (vitamin C) 500 mg PO DAILY 07/04/20 01/27/23 History albuterol sulfate 2.5 mg/3 mL 2.5 mg (3 mL) inhalation Q4-6H PRN 09/03/22 01/27/23 Rx (0.083 %) solution for nebulization shortness of breath or wheezing #30 mL ascorbate calcium (vitamin C) 500 500 mg PO DAILY 11/17/22 01/27/23 History mg tablet multivitamin 1 tablet PO DAILY 11/17/22 01/27/23 History pantoprazole 40 mg tablet,delayed 40 mg PO BID 11/17/22 01/27/23 History release potassium chloride 20 mEq 40 meq PO BID 11/17/22 01/27/23 History tablet,extended release tramadol 50 mg tablet 50 mg PO Q6H PRN pain #20 tabs 12/04/22 01/27/23 Rx albuterol sulfate 90 mcg/actuation See Rx Instructions .Route 01/20/23 01/27/23
[2023-01-28 10:45] LABS: Hematocrit 27.1 % (35.0-42.0); Hemoglobin 7.6 g/dL (11.7-13.8)
--- NOTE | 2023-01-28 14:56 | PM.EVENT ---
Event Note Event Note Event Note: Spoke with Dr Martinez and was informed that if her levels go down below 7 I need to call the oncall as he only see patients as outpatient but if she is trending up then we should continue to monitor for bleeding for 24 hours and have her follow up for outpatient visit.
[2023-01-28 16:55] LABS: Hematocrit 26.3 % (35.0-42.0); Hemoglobin 7.5 g/dL (11.7-13.8)
--- NOTE | 2023-01-28 17:42 | PC.NURSE ---
Mariano Quiroz, [employer] TEAM MEMBER/Hospitalist, notified of current Hand H results.
[2023-01-28] MEDS: MONTELUKAST SODIUM 10 MG TABLET PO (20:47)
--- NOTE | 2023-01-28 22:52 | PC.NURSE ---
Patient resting quietly in bed. Call light and belongings within reach. Able to verbalize needs.
[2023-01-29] VITALS (19 sets, daily range): BP systolic 104–123; BP diastolic 46–63; PULSE 78–116; RESP 16–20; TEMP 36.6–36.8; O2SAT 94–98
[2023-01-29] MEDS: IPRATROPIUM 0.5 MG/ALBUTEROL SULFATE 2.5 MG AMPUL.NEB 3 ML INHALATION ×4 (05:01→23:31)
[2023-01-29 05:18] LABS: Hematocrit 27.2 % (35.0-42.0); Hemoglobin 7.7 g/dL (11.7-13.8); Mean Corpuscular HGB Conc 28.3 g/dL (32.0-36.0); Mean Corpuscular Volume 84.7 fL (78.0-102.0); Platelet Count Result 477 K/mm3 (150-420); Red Blood Count 3.21 M/mm3 (4.20-5.40); Red Cell Distribution Width 23.2 % (11.6-14.4); White Blood Count 9.9 K/mm3 (4.8-10.8)
[2023-01-29 05:26] LABS: Anion Gap 7 mmol/L (8-16); Blood Urea Nitrogen 15 mg/dL (7-18); Calcium 8.7 mg/dL (8.5-10.1); Carbon Dioxide 32 mmol/L (21-32); Chloride 101 mmol/L (98-108); Estimated CRCL calculation 32 ml/min; Estimated Glomerular Filt Rate 43; Glucose 100 mg/dL (70-99); Osmolality Calculated 290 mOsm/kg (285-295); Potassium 4.3 mmol/L (3.5-5.1); Sodium 140 mmol/L (136-145)
--- NOTE | 2023-01-29 06:48 | WPDPN ---
Progress Note: A&P Assessment and Plan (1) Anemia: Qualifiers: Anemia type: iron deficiency Iron deficiency anemia type: chronic blood loss Qualified Code(s): D50.0 - Iron deficiency anemia secondary to blood loss (chronic) Code(s): D64.9 - Anemia, unspecified Status: Acute Assessment and Plan: Type and cross match transfuse [address] Rubio monitor hh q8h plan for possible discharge tomorrow transfuse ig hgb below 7 hold eliquis notify accountant bookkeeper (2) Acute hyperkalemia: Code(s): E87.5 - Hyperkalemia Status: Acute Assessment and Plan: monitor labs stable at this time (3) Iron deficiency anemia: Qualifiers: Iron deficiency anemia type: inadequate dietary iron intake Qualified Code(s): D50.8 - Other iron deficiency anemias Code(s): D50.9 - Iron deficiency anemia, unspecified Status: Acute Assessment and Plan: stable (4) Stage 3b chronic kidney disease: Code(s): N18.32 - Chronic kidney disease, stage 3b Status: Acute Assessment and Plan: cr-range 2.09-1.7 (5) Low back pain: Qualifiers: Chronicity: unspecified Back pain laterality: unspecified Sciatica presence: without sciatica Qualified Code(s): M54.50 - Low back pain, unspecified Code(s): M54.50 - Low back pain, unspecified Status: Acute Assessment and Plan: prn pain medication (6) Swelling: Code(s): R60.9 - Edema, unspecified Status: Acute Assessment and Plan: continue edema (7) Atrial fibrillation: Qualifiers: Atrial fibrillation type: paroxysmal Qualified Code(s): I48.0 - Paroxysmal atrial fibrillation Code(s): I48.91 - Unspecified atrial fibrillation Status: Chronic Assessment and Plan: Eliquis hold continue on beta arnold (8) CHF (congestive heart failure): Qualifiers: Heart failure type: unspecified Heart failure chronicity: chronic Qualified Code(s): I50.9 - Heart failure, unspecified Code(s): I50.9 - Heart failure, unspecified Status: Chronic Assessment and Plan: lasix by mouth continue monitor s/s for chf Subjective Date/time seen: 01/29/23 06:48 Interval history: patient's hemoglobin continues to rise currently 7.5 discussion with patient and explained to her I spoke to Dr. Martinez her GI doctor who not want patient transferred at this time but if she falls below 7 without IV fluids flowing call and have the oncall GI at [facility] to see if they will accept patient. Patient continues to rise and there is no s/s of bleeding. We will continue to monitor patient for another 24 hours. I will have PT see patient if she continue to remain stable we will discharge in the morning and have her follow up as a outpatient. I will call patient accountant bookkeeper to inform them that I have stopped the ASA as well as Eliquis at this time . Exam Narrative: GENERAL:Well-appearing, well-nourished, and in no acute distress. HEAD:Normocephalic, atraumatic. EYES: PERRLA and EOMI. ENT: Nares clear, no rhinorrhea or epistaxis. Mucous membranes moist. CHEST: Clear to auscultation. No respiratory distress. HEART: Regular Irregular rate and rhythm. normal peripheral pulses. ABDOMEN: Soft, nontender, nondistended, normal active bowel sounds. EXTREMITIES: Normal range of motion. trace edema. SKIN: Warm, dry, no rash. NEURO: No focal deficits. Alert and oriented x3. Objective Data Vital Signs Vital Signs: Vital Signs - 24 hr 01/28/23 12:00 01/28/23 08:00 01/28/23 08:00 Temperature Pulse Rate 122 H 120 H 120 H Respiratory Rate 16 Blood Pressure Pulse Oximetry 99 Oxygen Delivery Nasal Cannula Oxygen Flow Rate 2 01/28/23 08:00 01/28/23 12:00 01/28/23 09:25 Temperature 97.6 F 97.9 F Pulse Rate 102 H 95 98 Respiratory Rate 16 14 Blood Pressure 145/70 H 148/60 H Puls
[2023-01-29 07:36] LABS: NT Pro B Type Natriuretic Pept 7629 pg/mL (0-125)
[2023-01-29] MEDS: POTASSIUM CHLORIDE 20 MEQ TABLET 40 MEQ PO ×2 (09:30→17:43)
[2023-01-29] MEDS: ALBUTEROL SULFATE (*SP) INHALER 2 PUFF INHALATION (09:32)
[2023-01-29] MEDS: FLUTICASONE PROPIONATE 0.05% NA SPR 16 GM BTL (*BKC) 1 SPRAY NASAL (09:33)
[2023-01-29] MEDS: FUROSEMIDE INJ 40 MG/4 ML VIAL IV PUSH (09:33)
[2023-01-29] MEDS: ROSUVASTATIN 10 MG TABLET 40 MG PO (09:34)
[2023-01-29] MEDS: PANTOPRAZOLE 40 MG TABLET PO ×2 (09:34→17:43)
[2023-01-29] MEDS: MULTIVITAMINS THERAPEUTIC TAB (*BKC) 1 TABLET PO (09:35)
[2023-01-29] MEDS: ASCORBIC ACID 500 MG TABLET PO (09:35)
[2023-01-29] MEDS: METOPROLOL SUCCINATE EXT REL 50 MG TABCR PO (09:35)
[2023-01-29 15:40] LABS: Hematocrit 25.2 % (35.0-42.0); Hemoglobin 7.2 g/dL (11.7-13.8)
--- NOTE | 2023-01-29 15:58 | PC.NURSE ---
Mariano Quiroz, MANAGER ACQUISITION/Hospitalist, notified of current H and H results. No new orders.
[2023-01-29] MEDS: MONTELUKAST SODIUM 10 MG TABLET PO (21:07)
[2023-01-29] MEDS: ACETAMINOPHEN 325 MG TABLET 650 MG PO (21:07)
[2023-01-29] MEDS: traZODone HCL 50 MG TABLET PO (21:07)
[2023-01-29] MEDS: traMADol HCL (*CRX) 50 MG TABLET PO (23:53)
[2023-01-29] MEDS: TIZANIDINE HCL 2 MG TABLET PO (23:53)
[2023-01-30 04:00] VITALS: BP 91/35; PULSE 104; RESP 17; TEMP 36.4; O2SAT 95
[2023-01-30 05:31] LABS: Hematocrit 24.7 % (35.0-42.0); Hemoglobin 7.2 g/dL (11.7-13.8); Mean Corpuscular HGB Conc 29.1 g/dL (32.0-36.0); Mean Corpuscular Hemoglobin 24.5 pg (27.0-31.0); Platelet Count Result 417 K/mm3 (150-420); Red Blood Count 2.94 M/mm3 (4.20-5.40); White Blood Count 7.9 K/mm3 (4.8-10.8)
[2023-01-30] MEDS: IPRATROPIUM 0.5 MG/ALBUTEROL SULFATE 2.5 MG AMPUL.NEB 3 ML INHALATION (05:32)
[2023-01-30 05:33] VITALS: PULSE 77; RESP 18; O2SAT 93
[2023-01-30 05:43] LABS: Anion Gap 6 mmol/L (8-16); Blood Urea Nitrogen 16 mg/dL (7-18); Calcium 8.7 mg/dL (8.5-10.1); Carbon Dioxide 31 mmol/L (21-32); Chloride 102 mmol/L (98-108); Estimated CRCL calculation 30 ml/min; Estimated Glomerular Filt Rate 41; Glucose 99 mg/dL (70-99); Osmolality Calculated 289 mOsm/kg (285-295); Potassium 4.6 mmol/L (3.5-5.1); Sodium 139 mmol/L (136-145)
[2023-01-30 05:48] VITALS: PULSE 85; RESP 20; O2SAT 99
[2023-01-30 06:23] LABS: Iron 19 ug/dL (50-170); Percent Iron Saturation 4 % (12-57)
[2023-01-30 08:00] VITALS: BP 99/48; PULSE 114; RESP 18; TEMP 36.2; O2SAT 98
[2023-01-30] MEDS: ROSUVASTATIN 10 MG TABLET 40 MG PO (09:02)
[2023-01-30] MEDS: FUROSEMIDE INJ 40 MG/4 ML VIAL IV PUSH (09:02)
[2023-01-30] MEDS: FLUTICASONE PROPIONATE 0.05% NA SPR 16 GM BTL (*BKC) 1 SPRAY NASAL (09:02)
[2023-01-30 09:03] VITALS: PULSE 108
[2023-01-30] MEDS: FERROUS SULFATE 324 MG TABLET PO (09:03)
[2023-01-30] MEDS: ASCORBIC ACID 500 MG TABLET PO (09:03)
[2023-01-30] MEDS: POTASSIUM CHLORIDE 20 MEQ TABLET 40 MEQ PO (09:03)
[2023-01-30] MEDS: MULTIVITAMINS THERAPEUTIC TAB (*BKC) 1 TABLET PO (09:03)
[2023-01-30] MEDS: COLCHICINE 0.6 MG TABLET PO (09:03)
[2023-01-30] MEDS: ALBUTEROL SULFATE (*SP) INHALER 2 PUFF INHALATION (09:03)
[2023-01-30] MEDS: METOPROLOL SUCCINATE EXT REL 50 MG TABCR PO (09:03)
[2023-01-30] MEDS: ACETAMINOPHEN 325 MG TABLET 650 MG PO (09:04)
[2023-01-30] MEDS: PANTOPRAZOLE 40 MG TABLET PO (09:04)
--- NOTE | 2023-01-30 10:06 | PM.DS ---
DS: Admitting Diagnosis Discharge Date 01/30/2023 Admitting Diagnosis Anemia, Hyperkalemia, CKD3B DS: Discharge Diagnosis Discharge Diagnosis (1) Anemia: Qualifiers: Anemia type: iron deficiency Iron deficiency anemia type: chronic blood loss Qualified Code(s): D50.0 - Iron deficiency anemia secondary to blood loss (chronic) Code(s): D64.9 - Anemia, unspecified Status: Acute Assessment and Plan: Type and cross match Received one unit PRBC's Dr. Rubio was consulted and advised OK for outpatient follow up if Hgb stayed above 7.0. hold la - Dr. Mattson made aware by previous day's provider according to her note. hold ASA (2) Acute hyperkalemia: Code(s): E87.5 - Hyperkalemia Status: Resolved Assessment and Plan: K+ this AM is normal at 4.6. (3) Iron deficiency anemia: Qualifiers: Iron deficiency anemia type: inadequate dietary iron intake Qualified Code(s): D50.8 - Other iron deficiency anemias Code(s): D50.9 - Iron deficiency anemia, unspecified Status: Chronic Assessment and Plan: monitor (4) Stage 3b chronic kidney disease: Code(s): N18.32 - Chronic kidney disease, stage 3b Status: Chronic Assessment and Plan: cr-range 2.09-1.7 At discharge, below baseline at 1.28 (5) Low back pain: Qualifiers: Back pain laterality: unspecified Chronicity: unspecified Sciatica presence: without sciatica Qualified Code(s): M54.50 - Low back pain, unspecified Code(s): M54.50 - Low back pain, unspecified Status: Chronic Assessment and Plan: prn pain medication (6) Swelling: Code(s): R60.9 - Edema, unspecified Status: Chronic Assessment and Plan: continue home dose of lasix on discharge. (7) Atrial fibrillation: Qualifiers: Atrial fibrillation type: paroxysmal Qualified Code(s): I48.0 - Paroxysmal atrial fibrillation Code(s): I48.91 - Unspecified atrial fibrillation Status: Chronic Assessment and Plan: Eliquromulo and ASA being held - Cardiology aware continue on beta arnold (8) CHF (congestive heart failure): Qualifiers: Heart failure chronicity: chronic Heart failure type: unspecified Qualified Code(s): I50.9 - Heart failure, unspecified Code(s): I50.9 - Heart failure, unspecified Status: Chronic Assessment and Plan: lasix by mouth continue monitor s/s for chf DS: Summary Hospital Course Reason for hospitalization: Anemia Hospital Course: This 73 year old female patient with PMH of GI Bleed, back pain, HTN, CHF, COPD w/home Oxygen, CKD3, PAD, Chronic diastolic heart failure and NICOL presented to the ER on 01/28/23 with complaints of dyspnea, generalized weakness and overall not feeling well. Workup was performed in the ER and she was noted to be anemic requiring a 1 unit of PRBC's to be administered. Pt's anticoagulation with Eliquis and ASA were held and pt's Hgb has been monitored and is no longer dropping. She is stable at 7.2. Pt. sees Dr. Rubio, her GI doctor at [facility] and Dr. Mattson for Cardiology. According to the progress note of yesterday, Dr. Mattson's office was notified that the ASA and the Eliquis are being held, and Dr. Rubio saw fit for outpatient follow up if her Hgb maintained. The pt. has had no signs of acute bleed during her admission and overall her hospitalization has had a favorable course. Her Hgb is 7.2 this morning and she is stable for discharge with close follow up with Srinivasan Amaral and her PCP. Pt. has reportedly had a Colonoscopy within the past month and there was no bleeding found. Status at Discharge Cognitive/behavioral status at discharge: At baseline, asks appropriate questions, answers all questions appropriately and exhibits good thought process. Functional status at discharge: independent ambulation Time Spent with Patient Time attest
--- NOTE | 2023-01-30 11:55 | PC.NURSE ---
Discharge instructions reviewed with patient and her . All questions answered. Pt escorted via wheelchair and assisted into private vehicle.
--- NOTE | 2023-02-02 12:37 | PC.NURSE ---
Pt states she received and understood her discharge instructions. Pt also states her care was excellent .
== END 2023-01-30 11:55 | disposition home health service (06) ==
LOC: CHSED 16:48 → CHS2ND 16:50
PROVIDERS: Nurse Practitioner; Nurse Practitioner Family; Admitting Provider Internal Medicine; Emergency Provider Emergency Medicine; PCP Family Medicine; Visit Provider Internal Medicine
DX: D50.9 Iron deficiency anemia, unspecified (principal); I48.20 Chronic atrial fibrillation, unspecified; I13.0 Hypertensive heart and chronic kidney disease with heart failure and stage 1 through stage 4 chronic kidney disease, or unspecified chronic kidney disease; N18.32 Chronic kidney disease, stage 3b; I50.32 Chronic diastolic (congestive) heart failure; I73.9 Peripheral vascular disease, unspecified; J44.9 Chronic obstructive pulmonary disease, unspecified; E87.5 Hyperkalemia; E78.5 Hyperlipidemia, unspecified; M54.50 Low back pain, unspecified; L40.9 Psoriasis, unspecified; G47.30 Sleep apnea, unspecified; F17.210 Nicotine dependence, cigarettes, uncomplicated; Z79.01 Long term (current) use of anticoagulants; Z99.81 Dependence on supplemental oxygen
CPT/HCPCS: 36415; 36430; 80048; 80053; 83540; 83550; 83880; 85014; 85018; 85027; 85055; 85610; 85730; 86850; 86900; 86901; 86920; 94640; 96360; 96361; 96374; 96376; 97161; 99285; A9270; G0378; J1940; J7030; J7050; P9016

== ENCOUNTER 2023-02-04 11:56 | Outpatient (CLI) | payer MEDICARE, OTHER, SELFPAY ==
--- NOTE | ~2023-02-04 | XR_ITS ---
XR chest 2V 02/04/2023 12:29 Indication: Shortness of breath Procedure: PA and lateral views of the chest Comparison: Comparison to multiple prior studies sequentially, with oldest reviewed study dated 05/02. Findings: Moderate cardiomegaly. No focal air space disease, pulmonary edema, pleural effusion or serina pected pneumothorax. No acute osseous abnormality. The lungs are hyperinflated which is consistent wi th, but not diagnostic of chronic obstructive pulmonary disease. Impression: 1: No acute cardiopulmonary disease. Reviewed, dictated and finalized at location B. Impression: 1: No acute cardiopulmonary disease.
[2023-02-04 12:14] LABS: Hematocrit 27.7 % (35.0-42.0); Hemoglobin 7.8 g/dL (11.7-13.8); Mean Corpuscular HGB Conc 28.2 g/dL (32.0-36.0); Mean Corpuscular Hemoglobin 23.6 pg (27.0-31.0); Mean Corpuscular Volume 83.7 fL (78.0-102.0); Mean Platelet Volume 9.7 fl (9.2-11.8); Platelet Count Result 437 K/mm3 (150-420); Red Blood Count 3.31 M/mm3 (4.20-5.40); Red Cell Distribution Width 22.5 % (11.6-14.4); White Blood Count 7.7 K/mm3 (4.8-10.8)
[2023-02-04 12:36] LABS: NT Pro B Type Natriuretic Pept 8594 pg/mL (0-125); Troponin I 20.3 ng/L (0.00-60.4)
[2023-02-04 13:54] LABS: Alanine Aminotransferase 18 U/L (14-59); Albumin Level 3.1 g/dL (3.4-5.0); Alkaline Phosphatase 247 U/L (46-116); Anion Gap 9 mmol/L (8-16); Aspartate Amino Transferase 12 U/L (15-37); Bilirubin,Total 0.7 mg/dL (0.00-1.00); Blood Urea Nitrogen 12 mg/dL (7-18); Carbon Dioxide 29 mmol/L (21-32); Chloride 100 mmol/L (98-108); Estimated Glomerular Filt Rate 42; Glucose 109 mg/dL (70-99); Osmolality Calculated 286 mOsm/kg (285-295); Potassium 4.3 mmol/L (3.5-5.1); Sodium 138 mmol/L (136-145); Total Protein 6.9 g/dL (6.4-8.2)
== END 2023-02-04 11:57 | disposition home or self-care (01) ==
LOC: CHSLAB 11:59
PROVIDERS: PCP Family Medicine; Visit Provider Family Medicine
DX: D50.0 Iron deficiency anemia secondary to blood loss (chronic) (principal); R07.9 Chest pain, unspecified; R06.02 Shortness of breath; Z87.19 Personal history of other diseases of the digestive system
CPT/HCPCS: 36415; 71046; 80053; 83880; 84484; 85027

== ENCOUNTER 2023-02-19 12:36 | Observation (INO) | payer MEDICARE, SELFPAY ==
[2023-02-19] VITALS (28 sets, daily range): BP systolic 103–131; BP diastolic 53–97; PULSE 73–126; RESP 17–28; TEMP 36.7–37.2; O2SAT 90–100; BMI 27.6
--- NOTE | ~2023-02-19 | XR_ITS ---
EXAMINATION: XR chest 1V portable INDICATION: Cough and shortness of breath TECHNIQUE: Portable AP chest at 1312 hours COMPARISON: 02/04/2023 FINDINGS: Cardiomegaly is noted. There is mild atelectasis of the lung bases. No pleural effusion or pneumothorax. Healed bilateral rib fractures are noted. IMPRESSION: 1. Cardiomegaly. 2. Mild atelectasis of the lung bases. Reviewed, dictated and finalized at location L.
--- NOTE | ~2023-02-19 | CT_ITS ---
EXAMINATION: CTA chest PE protocol DATE: 02/19/2023 13:55 INDICATION: Cough and shortness of breath TECHNIQUE: Computed tomography angiography (CTA) of the chest was performed with 100 mL Omnipaque-350 intravenous contrast timed to evaluate the pulmonary arteries. Coronal maximum intensity projection 3D-reconstructions were created by the technologist. The dose-length product (DLP) was 320.48 mGy-cm. Automated exposure control and iterative reconstruction technique were employed. COMPARISON: 10/31/2022 FINDINGS: The pulmonary arteries are well-opacified. No pulmonary embolism is identified. Cardiomegal y is noted. There are no pathologically enlarged thoracic lymph nodes. There is mild emphysema. Left lung nodules measure up to 4 mm. There is mild atelectasis in the lower lobes, right greater than lef t. No pleural effusion or pneumothorax. There is mild thoracic spondylosis. Healed bilateral rib frac tures are noted. Again seen are nodules in the thyroid measuring up to 10 mm. Punctate calcifications in otherwise normal appearing liver and spleen likely represent healed granulomatous disease. IMPRESSION: 1. No pulmonary embolus. 2. Mild atelectasis of the lower lobes. 3. Cardiomegaly. 4. Mild emphysema. Reviewed, dictated and finalized at location L.
--- NOTE | 2023-02-19 12:50 | ECG_ITS ---
Measurements Intervals [place] Rate: 103 P: MS: 0 QRS: 0 QRSD: 84 T: 40 QT: 318 QTc: 418 Interpretive Statements ATRIAL FIBRILLATION WITH RAPID VENTRICULAR RESPONSE ABNORMAL RHYTHM ECG COMPARED TO ECG 01/09/2023 12:11:43 NO SIGNIFICANT CHANGES Electronically Signed On 02-23-2023 9:14:29 CDT by David Richards M.D.
[2023-02-19] MEDS: SODIUM CHLORIDE 0.9% IV 1,000 ML 999 ML IV CONT (13:05)
[2023-02-19] MEDS: methylPREDNISolone SOD SUCC 125 MG VIAL IV PUSH (13:05)
[2023-02-19] MEDS: IPRATROPIUM 0.5 MG/ALBUTEROL SULFATE 2.5 MG AMPUL.NEB 3 ML INHALATION (13:12)
[2023-02-19 13:16] LABS: Basophils Absolute Auto 0.06 K/mm3 (0.00-0.10); Basophils Percent Auto 0.7 % (0.0-1.0); Eosinophils Absolute Auto 0.13 K/mm3 (0.02-0.50); Eosinophils Percent Auto 1.5 % (1.0-6.0); Hematocrit 31.1 % (35.0-42.0); Hemoglobin 8.4 g/dL (11.7-13.8); Immature Granulocyte Absolute 0.02 K/mm3 (0.00-0.00); Immature Granulocyte Percent A 0.2 % (0.0-0.0); Lymphocytes Absolute Auto 1.46 K/mm3 (1.10-4.50); Lymphocytes Percent Auto 17.2 % (18.0-42.0); Mean Platelet Volume 10.2 fl (9.2-11.8); Monocytes Absolute Auto 0.72 K/mm3 (0.10-0.90); Monocytes Percent Auto 8.5 % (2.0-11.0); Neutrophils Absolute Auto 6.1 K/mm3 (1.7-7.2); Neutrophils Percent Auto 71.9 % (50.0-70.0); Platelet Count Result 292 K/mm3 (150-420); Red Blood Count 3.66 M/mm3 (4.20-5.40); Red Cell Distribution Width 21.8 % (11.6-14.4); White Blood Count 8.5 K/mm3 (4.8-10.8)
[2023-02-19 13:30] LABS: Partial Thromboplastin Time 25.7 SEC (23.90-30.70); Prothrombin Time 11.4 Seconds (9.50-12.10)
[2023-02-19 13:33] LABS: D Dimer 0.53 mg/L (0.19-0.50)
[2023-02-19 13:41] LABS: Estimated CRCL calculation 34 ml/min
[2023-02-19 13:43] LABS: Lactic Acid Reflex 0.8 mmol/L (0.4-2.0)
[2023-02-19 13:52] LABS: Alanine Aminotransferase 20 U/L (14-59); Albumin Level 3.6 g/dL (3.4-5.0); Alkaline Phosphatase 264 U/L (46-116); Anion Gap 2 mmol/L (8-16); Aspartate Amino Transferase 12 U/L (15-37); Bilirubin,Total 0.7 mg/dL (0.00-1.00); Blood Urea Nitrogen 13 mg/dL (7-18); Carbon Dioxide 35 mmol/L (21-32); Chloride 101 mmol/L (98-108); Glucose 111 mg/dL (70-99); NT Pro B Type Natriuretic Pept 5842 pg/mL (0-125); Osmolality Calculated 287 mOsm/kg (285-295); Potassium 5.2 mmol/L (3.5-5.1); Sodium 138 mmol/L (136-145); Total Protein 7.1 g/dL (6.4-8.2)
[2023-02-19 13:54] LABS: Estimated Glomerular Filt Rate 49
[2023-02-19 13:55] LABS: CRP < 0.5 mg/dL (0.0-0.9)
[2023-02-19 13:56] LABS: Influenza A QL RT-PCR Negative (Negative); Influenza B QL RT-PCR Negative (Negative); SARS-CoV-2 RNA PCR Negative (Negative)
[2023-02-19 13:57] LABS: RSV RNA, RT-PCR Negative (Negative)
--- NOTE | 2023-02-19 14:25 | ED.SOB ---
HPI - SOB/Dyspnea General Chief Complaint: Shortness of Breath/Dyspnea Stated Complaint: shortness of breath Time Seen by Provider: 02/19/23 12:43 Source: patient and family Mode of arrival: wheelchair Limitations: no limitations History of Present Illness HPI Narrative: this is a 73-year-old female with a history of COPD recently quit smoking approximately 1 week ago presented to her primary care doctor's office with increased shortness of breath, patient does have a history of CHF and atrial fibrillation EKG performed in her primaries office showed that she had an elevated heart rate with some history of atrial fibrillation thought that she was in AFib with RVR. The patient has no cough no fever chills no nausea vomiting does have some tightness in her chest and shortness of breath. Otherwise there is no nausea vomiting no abdominal pain no dysuria no flank pain. MD elicited complaint: shortness of breath Pertinent past history: COPD and congestive heart failure Onset (ago): day(s) Related Data Home Medications Medication Instructions Recorded Confirmed apixaban 5 mg tablet (Eliquis) 5 mg PO BID 08/15/19 02/05/23 rosuvastatin 40 mg tablet (Crestor) 40 mg PO DAILY 08/15/19 02/05/23 ascorbate calcium (vitamin C) 500 mg PO DAILY 07/04/20 02/05/23 ascorbate calcium (vitamin C) 500 500 mg PO DAILY 11/17/22 02/05/23 mg tablet multivitamin 1 tablet PO DAILY 11/17/22 02/05/23 pantoprazole 40 mg tablet,delayed 40 mg PO BID 11/17/22 02/05/23 release potassium chloride 20 mEq 40 meq PO BID 11/17/22 02/05/23 tablet,extended release furosemide 20 mg tablet 60 mg PO BID 01/20/23 02/05/23 metoprolol succinate 25 mg capsule 50 mg PO DAILY 01/26/23 02/05/23 sprinkle, ext. release 24 hr Allergies Allergy/AdvReac Type Severity Reaction Status Date / Time codeine Allergy Severe Rash Verified 02/19/23 12:47 iron Allergy Intermediate Abdominal Verified 02/19/23 12:47 Pain Review of Systems Review of Systems: All systems reviewed & are unremarkable except as noted in HPI and below PMFSH Past Medical History Medical History (Updated 02/19/23 @ 14:34 by Lawrence Arevalo MD) Atrial fibrillation CHF (congestive heart failure) COPD (chronic obstructive pulmonary disease) HTN (hypertension) Hyperlipemia Overweight Psoriasis Sleep apnea Tobacco dependence Surgical History Surgical History Hx of cholecystectomy Hx of hysterectomy Hx of tonsillectomy Family History Family History Mother Family history of chronic obstructive pulmonary disease Other Family history of arthritis Family history of heart disease in male family member before age 55 Hypertension Social History Social History Years smoked: 53 Smoking status: Smoker, status unknown Tobacco type: cigarettes Second hand tobacco smoke exposure: Yes Alcohol intake: unknown Substance use: never Substance use type: does not use Lack of Transportation: No Lack of Food: Never True Current Housing: I Have Housing Concerned About Future Housing: No Difficulty Paying Gas/Electric Bills: No Difficulty Paying for Meds: No Currently Unemployed: No Education: High School Diploma/GED Difficulty w/ Childcare or Family Care: No Living arrangements: with family Additional living arrangements comments: Gender identity (if verbalized by the patient): Female Spiritual care concerns: No Exam Const: General: healthy appearing Nutritional Appearance: well nourished Limitations: no limitations HENMT: Head: normal to inspection Eyes: Conjunctivae: conjunctivae normal EOM: EOMs intact bilaterally Neck: Neck: normal visual inspection Chest: Chest palpation & inspection: normal inspection of the chest Resp: Effort & Inspection: normal respiratory
--- NOTE | 2023-02-19 15:02 | PM.IMHP ---
H&P: HPI History of Present Illness Date/Time: 02/19/23 15:02 Chief Complaint: Shortness of breath Narrative: Ms. Palomares is a 73-year-old female who presented to the emergency room after being seen by her primary care provider for complaints of shortness of breath. Patient states for last 2 days she has had increasing shortness of breath and she called her primary care provider and was seen in the office. Patient states in the office she an EKG performed and she was told that she was in atrial fibrillation with a fast heart rate. Patient states the last 2 days she has heard herself wheezing and she has been using her nebulizer every 6 hours routinely. Patient states she typically only uses her nebulizer twice daily. Patient states that she occasionally has palpitations when she is going from sitting to standing. Patient states that she did see Cardiology within the last 2 weeks and 1 of her medications was doubled to decrease her heart rate. Patient states she is unsure of what medication was adjusted though. Patient states that when she did see her director it she has significant edema and that is the other reason for trying to slow her heart rate down. Patient states that she does wear oxygen at home continuously from 2.5 to 3 L per nasal cannula. Patient denies any chest pain, lightheadedness, dizziness, syncopal, or near syncopal episodes. Patient states that her Eliquis was recently placed on hold secondary to bleeding. Patient denies any recent weight gain. Patient states she typically smokes a pack a cigarettes a day and has done so since age 15, but she has not been smoking for the last week and is trying to quit. Review of Systems Review of Systems: A 12 point review of systems was completed patient all pertinent positive and negative per HPI the remainder are unremarkable. [facility] Past Medical History Medical History (Updated 02/19/23 @ 14:34 by Lawrence Arevalo MD) Atrial fibrillation CHF (congestive heart failure) COPD (chronic obstructive pulmonary disease) HTN (hypertension) Hyperlipemia Overweight Psoriasis Sleep apnea Tobacco dependence Surgical History Surgical History Hx of cholecystectomy Hx of hysterectomy Hx of tonsillectomy Family History Family History Mother Family history of chronic obstructive pulmonary disease Other Family history of arthritis Family history of heart disease in male family member before age 55 Hypertension Social History Social History Years smoked: 53 Smoking status: Smoker, status unknown Tobacco type: cigarettes Second hand tobacco smoke exposure: Yes Alcohol intake: unknown Substance use: never Substance use type: does not use Lack of Transportation: No Lack of Food: Never True Current Housing: I Have Housing Concerned About Future Housing: No Difficulty Paying Gas/Electric Bills: No Difficulty Paying for Meds: No Currently Unemployed: No Education: High School Diploma/GED Difficulty w/ Childcare or Family Care: No Living arrangements: with family Additional living arrangements comments: Gender identity (if verbalized by the patient): Female Spiritual care concerns: No Meds Home Medications and Allergies Home Medications Medication Instructions Recorded Confirmed Type apixaban 5 mg tablet (Eliquis) 5 mg PO BID 08/15/19 02/19/23 History rosuvastatin 40 mg tablet (Crestor) 40 mg PO DAILY 08/15/19 02/19/23 History fluticasone propionate 50 1 spray intranasal DAILY #9.9 mL 03/27/20 02/19/23 Rx mcg/actuation nasal spray,suspension (Allergy Relief (fluticasone)) fexofenadine 60 mg tablet (Radha 60 mg PO Q12H #60 tabs 04/25/20 02/19/23 Rx Allergy) albuterol sulfate 2.5 mg/3 mL 2.5 mg (3 mL) inhalation Q4-6H PRN 09/03/
--- NOTE | 2023-02-19 16:00 | ADMGEN ---
This patient, Flakita Palomares, was admitted to 2nd Floor Room 208-2. Patient/family oriented to hospital policies and general routines including ID bracelet, bed and alarms, visiting hours, pain management, procedures, bathroom and other care routines, personal items, smoking policy, room service/diet, and visiting hours. Information on how to activate the Rapid Response Team has been discussed. Patient/Family are encouraged to report perceived risks to care and to ask questions if they do not understand what they are told or what they should do. Pt admitted to room c spouse at side and all instructions and POC discussed c pt and spouse, She arrives A&O x3 and answers all questions appropriately. She has O2 in place at 2.5L via NC. Pt noted to have slight SOB c extertion but is able to walk c a walker and O2 in place to BR and back to bed. Call mitchell at pt side and she reports understanding of instructions.
[2023-02-19] MEDS: FUROSEMIDE 20 MG TABLET 60 MG PO (17:01)
[2023-02-19] MEDS: PANTOPRAZOLE 40 MG TABLET PO (17:01)
[2023-02-19] MEDS: methylPREDNISolone SOD SUCC 125 MG VIAL 60 MG IV PUSH ×2 (17:51→23:53)
[2023-02-19] MEDS: IPRATROPIUM BR 0.02% INH SOLN 0.5 MG/2.5 ML VIAL INHALATION ×2 (18:25→23:32)
[2023-02-19] MEDS: LEVALBUTEROL NEB 1.25 MG/3 ML INHALATION ×2 (18:25→23:32)
[2023-02-19] MEDS: traMADol HCL (*CRX) 50 MG TABLET PO (20:53)
[2023-02-19] MEDS: TIZANIDINE HCL 2 MG TABLET PO (20:53)
[2023-02-20] VITALS (8 sets, daily range): BP systolic 112–122; BP diastolic 63–67; PULSE 78–117; RESP 17–20; TEMP 36.4–36.8; O2SAT 90–100
[2023-02-20 05:27] LABS: Basophils Absolute Auto 0.01 K/mm3 (0.00-0.10); Basophils Percent Auto 0.2 % (0.0-1.0); Hematocrit 28.8 % (35.0-42.0); Hemoglobin 7.8 g/dL (11.7-13.8); Immature Granulocyte Absolute 0.03 K/mm3 (0.00-0.00); Immature Granulocyte Percent A 0.6 % (0.0-0.0); Lymphocytes Absolute Auto 0.64 K/mm3 (1.10-4.50); Lymphocytes Percent Auto 12.7 % (18.0-42.0); Mean Corpuscular HGB Conc 27.1 g/dL (32.0-36.0); Mean Corpuscular Hemoglobin 23.1 pg (27.0-31.0); Mean Corpuscular Volume 85.5 fL (78.0-102.0); Mean Platelet Volume 9.6 fl (9.2-11.8); Monocytes Absolute Auto 0.11 K/mm3 (0.10-0.90); Monocytes Percent Auto 2.2 % (2.0-11.0); Neutrophils Absolute Auto 4.3 K/mm3 (1.7-7.2); Neutrophils Percent Auto 84.3 % (50.0-70.0); Platelet Count Result 241 K/mm3 (150-420); Red Blood Count 3.37 M/mm3 (4.20-5.40); Red Cell Distribution Width 21.5 % (11.6-14.4); White Blood Count 5.1 K/mm3 (4.8-10.8)
[2023-02-20] MEDS: IPRATROPIUM BR 0.02% INH SOLN 0.5 MG/2.5 ML VIAL INHALATION (05:34)
[2023-02-20] MEDS: LEVALBUTEROL NEB 1.25 MG/3 ML INHALATION (05:35)
[2023-02-20 05:37] LABS: Anion Gap 3 mmol/L (8-16); Blood Urea Nitrogen 19 mg/dL (7-18); Calcium 8.6 mg/dL (8.5-10.1); Carbon Dioxide 33 mmol/L (21-32); Chloride 99 mmol/L (98-108); Estimated CRCL calculation 27 ml/min; Estimated Glomerular Filt Rate 36; Glucose 188 mg/dL (70-99); Osmolality Calculated 287 mOsm/kg (285-295); Potassium 4.9 mmol/L (3.5-5.1); Sodium 135 mmol/L (136-145)
[2023-02-20] MEDS: methylPREDNISolone SOD SUCC 125 MG VIAL 60 MG IV PUSH (05:50)
[2023-02-20] MEDS: POTASSIUM CHLORIDE 20 MEQ TABLET 40 MEQ PO (08:30)
[2023-02-20] MEDS: MULTIVITAMINS THERAPEUTIC TAB (*BKC) 1 TABLET PO (08:30)
[2023-02-20] MEDS: ASCORBIC ACID 500 MG TABLET PO (08:30)
[2023-02-20] MEDS: ROSUVASTATIN 10 MG TABLET 40 MG PO (08:30)
[2023-02-20] MEDS: METOPROLOL SUCCINATE EXT REL 25 MG TABCR PO (08:31)
[2023-02-20] MEDS: MONTELUKAST SODIUM 10 MG TABLET PO (08:31)
[2023-02-20] MEDS: PANTOPRAZOLE 40 MG TABLET PO (08:31)
[2023-02-20] MEDS: FUROSEMIDE 20 MG TABLET 60 MG PO (08:31)
[2023-02-20] MEDS: FERROUS SULFATE 324 MG TABLET PO (08:31)
[2023-02-20] MEDS: LORATADINE 10 MG TABLET PO (08:31)
[2023-02-20] MEDS: FLUTICASONE PROPIONATE 0.05% NA SPR 16 GM BTL (*BKC) 1 SPRAY NASAL (08:33)
--- NOTE | 2023-02-20 10:00 | PM.DS ---
DS: Admitting Diagnosis Discharge Date 02/20/2023 Admitting Diagnosis COPD exacerbation DS: Discharge Diagnosis Discharge Diagnosis (1) COPD exacerbation: Code(s): J44.1 - Chronic obstructive pulmonary disease with (acute) exacerbation Status: Acute Assessment and Plan: Patient presented to the emergency room with an acute exacerbation of her COPD and received DuoNeb as well as IV steroids and had significant improvement. Patient will be discharged with 3 more days of oral steroids and a prescription for DuoNebs to used as needed for shortness of breath or wheezing. (2) A-fib: Qualifiers: Atrial fibrillation type: unspecified Qualified Code(s): I48.91 - Unspecified atrial fibrillation Code(s): I48.91 - Unspecified atrial fibrillation Status: Acute Assessment and Plan: Patient initially had atrial fibrillation with a rapid ventricular response. Her heart rate has since decreased into the 90s. Patient's elevated heart rate could have been secondary to her shortness of breath and then receiving albuterol as well as steroids. Patient is not on any anticoagulation at this time secondary to GI bleeding. (3) Stage 3b chronic kidney disease: Code(s): N18.32 - Chronic kidney disease, stage 3b Status: Chronic Assessment and Plan: Patient will need to continue to be monitored by primary care for her chronic kidney disease. DS: Summary Hospital Course Reason for hospitalization: COPD exacerbation Hospital Course: Ms. Palomares is a 73-year-old female who presented to the emergency room after being sent by her primary care for shortness of breath and wheezing. Patient states that she had been having increasing shortness of breath and wheezing and went to see her primary care provider yesterday and it was noted that she was having difficulty breathing and her EKG showed atrial fibrillation with rapid ventricular response. Patient has a known history of chronic atrial fibrillation, but her rate is typically controlled. Patient was sent to the emergency room where she was given a DuoNeb treatment as well as IV Solu-Medrol. Patient's heart rate during emergency room visit was noted to be in the low 100s. Patient's chest x-ray showed no acute cardiopulmonary process. Patient was not requiring any extra oxygen then her home baseline of 2.5 L to 3 L. Patient was admitted overnight for monitoring of her O2 saturations and breathing. Patient has done very well, and has perceived DuoNeb treatments every 6 hours as well as IV Solu-Medrol every 6 hours. At this point time patient has very good air movement for her significant COPD and she has no wheezing. Patient remains on her baseline oxygen at 3 L. during hospitalization patient's potassium of twice daily was changed to once daily secondary to patient having a slightly elevated potassium level. Did discuss with patient that she is taking potassium once daily for the next 2 days and then return to her place daily dosing and she verbalized understanding. Also discussed with patient she will need to follow up with her wool fleece grader at a previously scheduled appointment for any further recommendations. Patient will also be following up with her primary care provider within the next 5-10 days to be re-evaluated. Also discussed with patient that a prescription for DuoNeb will be given and she can utilize is every 6 hours p.r.n. since she had very good results with the DuoNeb. Explain to patient that she will be given this 1 prescription and then when she follows up with her primary care this can be discussed further if he would like her to continue with DuoNeb or go back to albuterol. Patient verbalized understanding to above. At this point time patient is doing very well, she states she feels significantly improved and is ready for discharge home. Status at Discharge Cognitive/behavioral status at discharge: Condition on discharge is improved a
--- NOTE | 2023-02-20 11:25 | PC.NURSE ---
Patient discharging home. All discharge instructions and education reviewed with patient. Patient states understanding. IV site removed, tip intact. Dressing applied to site. All belongings gathered together to be taken home. Patients brought portable 02 for patient to transport home. Patient accompanied to front door via wheelchair by this nurse. Patient left via private vehicle with spouse. Denies any questions at discharge.
--- NOTE | 2023-02-24 13:27 | PC.NURSE ---
Unable to contact for discharge call back.
== END 2023-02-20 11:25 | disposition home or self-care (01) ==
LOC: CHSED 14:34 → CHS2ND 14:42
PROVIDERS: Admitting Provider Internal Medicine; Emergency Provider Emergency Medicine; PCP Family Medicine; Visit Provider Nurse Practitioner Adult Health
DX: J44.1 Chronic obstructive pulmonary disease with (acute) exacerbation (principal); I11.0 Hypertensive heart disease with heart failure; I50.9 Heart failure, unspecified; I48.20 Chronic atrial fibrillation, unspecified; E78.5 Hyperlipidemia, unspecified; L40.9 Psoriasis, unspecified; R06.81 Apnea, not elsewhere classified; F17.210 Nicotine dependence, cigarettes, uncomplicated; Z20.822 Contact with and (suspected) exposure to COVID-19
CPT/HCPCS: 36415; 71045; 71275; 80048; 80053; 83605; 83735; 83880; 84484; 85025; 85380; 85610; 85730; 86140; 87040; 87637; 93005; 94640; 96361; 96374; 96376; 99285; A9270; G0378; J2930; J7030; Q9967

== ENCOUNTER 2023-03-17 10:49 | Emergency (ER) | payer MEDICARE, SELFPAY ==
[2023-03-17] VITALS (30 sets, daily range): BP systolic 94–130; BP diastolic 48–95; PULSE 61–126; RESP 11–27; TEMP 36.9; O2SAT 89–100
--- NOTE | ~2023-03-17 | XR_ITS ---
EXAMINATION: XR chest 1V portable DATE: 03/17/2023 11:28 INDICATION: Shortness of breath TECHNIQUE: frontal view of the chest was obtained. COMPARISON: Chest radiograph and CT dated 02/19/2023 FINDINGS: Hyperexpansion of lungs consistent with mild emphysema better appreciated on prior CT. Persistent mil d opacities in the right lower lung zone and favor atelectasis over pneumonia. No pulmonary edema or definitive pleural effusion. Cardiomegaly. Calcified mediastinal lymph nodes along multiple small spl enic calcifications consistent with old granulomatous disease. Multiple old bilateral rib fractures. IMPRESSION: 1. Emphysema with persistent mild opacities in the right lower lung zone and favor atelectasis/scarri ng over pneumonia. 2. Cardiomegaly. Reviewed, dictated and finalized at location A. IMPRESSION: 1. Emphysema with persistent mild opacities in the right lower lung zone and fa vor atelectasis/scarring over pneumonia. 2. Cardiomegaly.
--- NOTE | 2023-03-17 10:54 | ED.SOB ---
HPI - SOB/Dyspnea General Chief Complaint: Shortness of Breath/Dyspnea Stated Complaint: SOB Time Seen by Provider: 03/17/23 10:54 Source: patient Mode of arrival: ambulatory Limitations: no limitations History of Present Illness HPI Narrative: 74-year-old female ex-smoker( 53 pack year smoking history. Quit 5 weeks ago) with obesity, LOUIE not on CPAP, COPD on 3 L FiO2, diastolic CHF, atrial fibrillation on Eliquis, renal artery stenosis status post angioplasty, peripheral vascular disease with claudication of the left lower extremity, status post bilateral stents, history of GI bleed, CKD with a creatinine of 1.4, anemia with recent hospitalization in [facility] from 02/20/2020 3-6 10/23/2022 presents to the ER with a few hours history of -- increasing shortness of breath. -- Cough with mucopurulent sputum no fever or chills. No chest pain chronic leg pain MD elicited complaint: shortness of breath and cough Pertinent past history: COPD and congestive heart failure Onset (ago): hour(s) ( 6 hours) Timing: constant Severity: moderate Exacerbating factors: exertion Relieving factors: rest and bronchodilators Known history of: COPD and congestive heart failure Associated symptoms: sputum production Treatment prior to arrival: none Related Data Home oxygen amount: 3 liters Home Medications Medication Instructions Recorded Confirmed rosuvastatin 40 mg tablet (Crestor) 40 mg PO DAILY 08/15/19 03/17/23 ascorbate calcium (vitamin C) 500 500 mg PO DAILY 11/17/22 03/17/23 mg tablet multivitamin 1 tablet PO DAILY 11/17/22 03/17/23 pantoprazole 40 mg tablet,delayed 40 mg PO BID 11/17/22 03/17/23 release potassium chloride 20 mEq 40 meq PO BID 11/17/22 03/17/23 tablet,extended release furosemide 20 mg tablet 60 mg PO BID 01/20/23 03/17/23 metoprolol succinate 25 mg capsule 25 mg PO DAILY 01/26/23 03/17/23 sprinkle, ext. release 24 hr clopidogrel 75 mg tablet 75 mg PO DAILY 03/10/23 03/17/23 Allergies Allergy/AdvReac Type Severity Reaction Status Date / Time budesonide Allergy Severe Swelling Verified 03/17/23 10:57 [From [facility]] of Lip/Tongue/Throat codeine Allergy Severe Rash Verified 03/17/23 10:57 formoterol Allergy Severe Swelling Verified 03/17/23 10:57 [From [facility]] of Lip/Tongue/Throat glycopyrrolate Allergy Severe Swelling Verified 03/17/23 10:57 [From [facility]] of Lip/Tongue/Throat iron Allergy Intermediate Abdominal Verified 03/17/23 10:57 Pain Review of Systems Review of Systems: All systems reviewed & are unremarkable except as noted in HPI and below Constitutional: Constitutional: Reports as per HPI and Reports no additional constitutional complaints Eyes: Eyes: Reports as per HPI and Reports no additional eye complaints ENT: Reports system reviewed and no additional complaints, except as documented and Reports as per HPI Cardiovascular: Cardiovascular: Reports as per HPI and Reports no additional cardiovascular complaints Respiratory: Respiratory: Reports as per HPI, Reports no additional respiratory complaints, Reports cough and Reports dyspnea Gastrointestinal: Gastrointestinal: Reports as per HPI and Reports no additional gastrointestinal complaints Genitourinary: Genitourinary: Reports no additional female genitourinary complaints Musculoskeletal: Musculoskeletal: Reports no additional musculoskeletal complaints and Reports as per HPI Integumentary/Breasts: Skin/Breast: Reports system reviewed and no additional complaints, except as docu and Reports as per HPI Neurologic: Reports system reviewed and no additional complaints, except as documented and Reports as per HPI Psychiatric: Psychiatric: Reports no additional psychiatric complaints and Reports as per HPI Endocrine: Endocrine: Reports no additional endocrine complaints and Reports as per HPI Hematologic/Lymphatic: Hematologic/Lymphatic: Reports no addition
--- NOTE | 2023-03-17 11:05 | ECG_ITS ---
Measurements Intervals [place] Rate: 102 P: MA: 0 QRS: 59 QRSD: 93 T: 94 QT: 351 QTc: 459 Interpretive Statements ATRIAL FIBRILLATION WITH RAPID VENTRICULAR RESPONSE WITH ABERRANT CONDUCTION OR VENTRICULAR PREMATURE COMPLEXES MINIMAL ST DEPRESSION [0.025+ mV ST DEPRESSION] ABNORMAL RHYTHM ECG Electronically Signed On 03-18-2023 11:50:27 CDT by David Richards M.D.
[2023-03-17 11:19] LABS: Glucose Point of Care 157 mg/dl (65-105)
[2023-03-17] MEDS: methylPREDNISolone SOD SUCC 125 MG VIAL IV PUSH (11:22)
[2023-03-17] MEDS: FUROSEMIDE INJ 40 MG/4 ML VIAL IV PUSH (11:22)
[2023-03-17] MEDS: IPRATROPIUM 0.5 MG/ALBUTEROL SULFATE 2.5 MG AMPUL.NEB 3 ML INHALATION (11:26)
[2023-03-17 11:44] LABS: Basophils Absolute Auto 0.04 K/mm3 (0.00-0.10); Basophils Percent Auto 0.4 % (0.0-1.0); Eosinophils Absolute Auto 0.07 K/mm3 (0.02-0.50); Eosinophils Percent Auto 0.7 % (1.0-6.0); Hematocrit 27.9 % (35.0-42.0); Hemoglobin 7.6 g/dL (11.7-13.8); Immature Granulocyte Absolute 0.04 K/mm3 (0.00-0.00); Immature Granulocyte Percent A 0.4 % (0.0-0.0); Lymphocytes Absolute Auto 1.07 K/mm3 (1.10-4.50); Lymphocytes Percent Auto 10.4 % (18.0-42.0); Mean Corpuscular HGB Conc 27.2 g/dL (32.0-36.0); Mean Corpuscular Hemoglobin 22.4 pg (27.0-31.0); Mean Corpuscular Volume 82.1 fL (78.0-102.0); Mean Platelet Volume 10.2 fl (9.2-11.8); Monocytes Absolute Auto 0.87 K/mm3 (0.10-0.90); Monocytes Percent Auto 8.5 % (2.0-11.0); Neutrophils Absolute Auto 8.2 K/mm3 (1.7-7.2); Neutrophils Percent Auto 79.6 % (50.0-70.0); Platelet Count Result 305 K/mm3 (150-420); White Blood Count 10.3 K/mm3 (4.8-10.8)
--- NOTE | 2023-03-17 12:05 | PC.NURSE ---
PT HAS BEEN TO RR AND BACK. PT TOLERATED WELL. FAMILY AT BEDSIDE. PT BREATHING STATUS IMPROVED. WILL CONTINUE TO MONITOR.
[2023-03-17 12:06] LABS: Alanine Aminotransferase 15 U/L (14-59); Albumin Level 3.3 g/dL (3.4-5.0); Alkaline Phosphatase 239 U/L (46-116); Anion Gap 6 mmol/L (8-16); Aspartate Amino Transferase 12 U/L (15-37); Bilirubin,Total 0.5 mg/dL (0.00-1.00); Blood Urea Nitrogen 18 mg/dL (7-18); Calcium 9.3 mg/dL (8.5-10.1); Carbon Dioxide 34 mmol/L (21-32); Chloride 103 mmol/L (98-108); Estimated CRCL calculation 29 ml/min; Estimated Glomerular Filt Rate 41; Glucose 130 mg/dL (70-99); Magnesium 1.9 mg/dL (1.8-2.4); NT Pro B Type Natriuretic Pept 6902 pg/mL (0-125); Osmolality Calculated 299 mOsm/kg (285-295); Potassium 3.9 mmol/L (3.5-5.1); Sodium 143 mmol/L (136-145); Total Protein 7.2 g/dL (6.4-8.2); Troponin I 33.7 ng/L (0.00-60.4)
[2023-03-17 12:22] LABS: Influenza A QL RT-PCR Negative (Negative); Influenza B QL RT-PCR Negative (Negative); RSV RNA, RT-PCR Negative (Negative); SARS-CoV-2 RNA PCR Negative (Negative)
[2023-03-17] MEDS: METOPROLOL TARTRATE INJ 5 MG/5 ML VIAL 2.5 MG IV PUSH (13:10)
--- NOTE | 2023-03-17 13:26 | PC.NURSE ---
PT IS SITING UP ON THE SIDE OF STRETCHER TALKING WITH SPOUSE. NAD NOTED AT THIS TIME. PT IS ABLE TO SPEAK IN COMPLETE SENTENCES, RESPIRATIONS ARE NON LABORED. PT REPORTS SHE IS FEELING BETTER. WILL CONTINUE TO MONITOR.
== END 2023-03-17 14:00 | disposition home or self-care (01) ==
PROVIDERS: Emergency Provider Internal Medicine Critical Care Medicine; PCP Family Medicine
DX: J44.1 Chronic obstructive pulmonary disease with (acute) exacerbation (principal); I13.0 Hypertensive heart and chronic kidney disease with heart failure and stage 1 through stage 4 chronic kidney disease, or unspecified chronic kidney disease; I50.32 Chronic diastolic (congestive) heart failure; N18.32 Chronic kidney disease, stage 3b; I48.20 Chronic atrial fibrillation, unspecified; D64.9 Anemia, unspecified; F17.210 Nicotine dependence, cigarettes, uncomplicated; Z79.01 Long term (current) use of anticoagulants; Z99.81 Dependence on supplemental oxygen; Z20.822 Contact with and (suspected) exposure to COVID-19
CPT/HCPCS: 36415; 36600; 71045; 80053; 82948; 83735; 83880; 84484; 85025; 87637; 93005; 94640; 96374; 96375; 99284; J1940; J2930

== ENCOUNTER 2023-03-19 11:54 | Outpatient (CLI) | payer MEDICARE, SELFPAY ==
[2023-03-19 12:13] LABS: Basophils Absolute Auto 0.06 K/mm3 (0.00-0.10); Basophils Percent Auto 0.6 % (0.0-1.0); Eosinophils Absolute Auto 0.05 K/mm3 (0.02-0.50); Eosinophils Percent Auto 0.5 % (1.0-6.0); Hematocrit 29.2 % (35.0-42.0); Immature Granulocyte Absolute 0.02 K/mm3 (0.00-0.00); Immature Granulocyte Percent A 0.2 % (0.0-0.0); Lymphocytes Absolute Auto 1.64 K/mm3 (1.10-4.50); Lymphocytes Percent Auto 15.7 % (18.0-42.0); Mean Corpuscular HGB Conc 27.4 g/dL (32.0-36.0); Mean Corpuscular Hemoglobin 22.3 pg (27.0-31.0); Mean Corpuscular Volume 81.6 fL (78.0-102.0); Mean Platelet Volume 9.4 fl (9.2-11.8); Monocytes Absolute Auto 0.91 K/mm3 (0.10-0.90); Monocytes Percent Auto 8.7 % (2.0-11.0); Neutrophils Absolute Auto 7.7 K/mm3 (1.7-7.2); Neutrophils Percent Auto 74.3 % (50.0-70.0); Platelet Count Result 345 K/mm3 (150-420); Red Blood Count 3.58 M/mm3 (4.20-5.40); Red Cell Distribution Width 21.8 % (11.6-14.4); White Blood Count 10.4 K/mm3 (4.8-10.8)
[2023-03-19 12:43] LABS: Albumin Level 3.8 g/dL (3.4-5.0); Alkaline Phosphatase 222 U/L (46-116); Anion Gap 9 mmol/L (8-16); Aspartate Amino Transferase < 10 U/L (15-37); Bilirubin,Total 0.8 mg/dL (0.00-1.00); Blood Urea Nitrogen 22 mg/dL (7-18); Calcium 9.3 mg/dL (8.5-10.1); Carbon Dioxide 34 mmol/L (21-32); Chloride 101 mmol/L (98-108); Estimated Glomerular Filt Rate 39; Glucose 104 mg/dL (70-99); Lipase 31 U/L (16-77); Osmolality Calculated 301 mOsm/kg (285-295); Potassium 4.5 mmol/L (3.5-5.1); Sodium 144 mmol/L (136-145); Total Protein 7.2 g/dL (6.4-8.2)
[2023-03-19 12:53] LABS: Alanine Aminotransferase 19 U/L (14-59); CRP < 0.5 mg/dL (0.0-0.9)
== END 2023-03-19 11:55 | disposition home or self-care (01) ==
PROVIDERS: PCP Family Medicine; Visit Provider Family Medicine
DX: I12.9 Hypertensive chronic kidney disease with stage 1 through stage 4 chronic kidney disease, or unspecified chronic kidney disease (principal); R10.9 Unspecified abdominal pain
CPT/HCPCS: 36415; 80053; 83690; 85025; 86140

== ENCOUNTER 2023-04-08 10:02 | Emergency (ER) | payer MEDICARE, SELFPAY ==
[2023-04-08] VITALS (33 sets, daily range): BP systolic 97–128; BP diastolic 60–86; PULSE 98–126; RESP 19–31; TEMP 36.4–36.7; O2SAT 86–100
--- NOTE | ~2023-04-08 | XR_ITS ---
Portable chest x-ray Comparison: 03/17/2023 Clinical History: Shortness of breath Findings: Lungs are clear, without focal consolidation or pleural effusion. Cardiomediastinal silho uette is stable. Chronic bilateral rib fracture deformities are noted. Impression: Clear lungs. Stable cardiomegaly. Reviewed, dictated and finalized at location . Impression: Clear lungs. Stable cardiomegaly.
--- NOTE | 2023-04-08 10:16 | ECG_ITS ---
Measurements Intervals [place] Rate: 108 P: [place]: 0 QRS: -12 QRSD: 88 T: 67 QT: 313 QTc: 420 Interpretive Statements ATRIAL FIBRILLATION WITH RAPID VENTRICULAR RESPONSE VENTRICULAR PREMATURE COMPLEX CANNOT RULE OUT SEPTAL INFARCT, AGE INDETERMINATE BORDERLINE T WAVE ABNORMALITY- HIGH LATERAL LEADS BASELINE ARTIFACT- I, III, AVR, AVL, AVF, V1-V6 ABNORMAL ECG COMPARED TO ECG 03/17/2023 11:35:05 MYOCARDIAL INFARCT FINDING NOW PRESENT Electronically Signed On 04-08-2023 10:39:08 CDT by Babar Saldivar D.O.
[2023-04-08] MEDS: ASPIRIN 81 MG CHEWABLE TABLET 324 MG PO (10:33)
--- NOTE | 2023-04-08 10:35 | ED.CHESTPAIN ---
HPI - Chest Pain General Chief Complaint: Chest Pain Stated Complaint: chest pain Time Seen by Provider: 04/08/23 10:16 History of Present Illness HPI narrative: 73-year-old female, ex-smoker with a history of hypertension, diastolic CHF, atrial fibrillation not on anticoagulation, negative stress test according to the patient trauma dyslipidemia, COPD on home oxygen, LOUIE, GI bleeding, CKD with recurrent hospitalizations for COPD exacerbation presents to the ER with a 1 hour history of this -- left-sided chest pain below the breast with radiation to the left shoulder. The the pain was unprovoked. No nausea / vomiting. She developed worsening shortness of breath during the episode of chest pain. She continues to have chest pain and is currently having chest pain of 10/10. at times her pain is related to deep breathing -- Chronic shortness of breath with recent worsening. She saturates 95% on 3 L FiO2 no fever or chills patient is frequently admitted for COPD exacerbation and her last discharge from [place] was on 02/20/2023. MD complaint: chest pain Onset (ago): hour(s) ( started 1 hour ago) Timing of current episode: constant Prior episodes: Yes Onset: during rest Pain location: left chest Pain radiation: left shoulder Severity: severe Quality: aching Relieving factors: nothing Exacerbating factors: nothing Treatment prior to arrival: none Risk Factors Coronary artery disease risk factors: smoking history, hyperlipidemia and hypertension Thoracic aortic dissection risk factors: longstanding hypertension Related Data On Oral Contraceptives: No Home Medications Medication Instructions Recorded Confirmed rosuvastatin 40 mg tablet (Crestor) 40 mg PO DAILY 08/15/19 04/08/23 ascorbate calcium (vitamin C) 500 500 mg PO DAILY 11/17/22 04/08/23 mg tablet multivitamin 1 tablet PO DAILY 11/17/22 04/08/23 pantoprazole 40 mg tablet,delayed 40 mg PO BID 11/17/22 04/08/23 release potassium chloride 20 mEq 40 meq PO BID 11/17/22 04/08/23 tablet,extended release furosemide 20 mg tablet 60 mg PO BID 01/20/23 04/08/23 metoprolol succinate 25 mg capsule 25 mg PO DAILY 01/26/23 04/08/23 sprinkle, ext. release 24 hr clopidogrel 75 mg tablet 75 mg PO DAILY 03/10/23 04/08/23 Allergies Allergy/AdvReac Type Severity Reaction Status Date / Time budesonide Allergy Severe Swelling Verified 04/08/23 10:14 [From [facility]] of Lip/Tongue/Throat codeine Allergy Severe Rash Verified 04/08/23 10:14 formoterol Allergy Severe Swelling Verified 04/08/23 10:14 [From [facility]] of Lip/Tongue/Throat glycopyrrolate Allergy Severe Swelling Verified 04/08/23 10:14 [From [facility]] of Lip/Tongue/Throat iron Allergy Intermediate Abdominal Verified 04/08/23 10:14 Pain Review of Systems Review of Systems: All systems reviewed & are unremarkable except as noted in HPI and below Constitutional: Constitutional: Reports as per HPI and Reports no additional constitutional complaints Eyes: Eyes: Reports as per HPI and Reports no additional eye complaints ENT: Reports system reviewed and no additional complaints, except as documented and Reports as per HPI Cardiovascular: Cardiovascular: Reports as per HPI, Reports no additional cardiovascular complaints, Reports chest pain and Reports rapid heart rate Respiratory: Respiratory: Reports as per HPI, Reports no additional respiratory complaints, Reports chest congestion, Reports cough and Reports dyspnea Gastrointestinal: Gastrointestinal: Reports as per HPI and Reports no additional gastrointestinal complaints Genitourinary: Genitourinary: Reports no additional female genitourinary complaints and Reports as per HPI Musculoskeletal: Musculoskeletal: Reports no additional musculoskeletal complaints and Reports as per HPI Integumentary/Breasts: Skin/Breast: Reports system reviewed and no additional complaints, except as docu and Reports as per HP
[2023-04-08] MEDS: ONDANSETRON INJ 4 MG/2 ML VIAL IV PUSH (10:38)
[2023-04-08] MEDS: MORPHINE SULFATE (*CRX) 2 MG/ML INJ 1 MG IV PUSH (10:38)
[2023-04-08] MEDS: LEVALBUTEROL NEB 1.25 MG/3 ML INHALATION (10:41)
[2023-04-08 10:43] LABS: Basophils Absolute Auto 0.04 K/mm3 (0.00-0.10); Basophils Percent Auto 0.4 % (0.0-1.0); Hematocrit 26.5 % (35.0-42.0); Hemoglobin 7.3 g/dL (11.7-13.8); Immature Granulocyte Absolute 0.02 K/mm3 (0.00-0.00); Immature Granulocyte Percent A 0.2 % (0.0-0.0); Lymphocytes Percent Auto 13.8 % (18.0-42.0); Mean Corpuscular HGB Conc 27.5 g/dL (32.0-36.0); Mean Corpuscular Hemoglobin 21.5 pg (27.0-31.0); Mean Corpuscular Volume 77.9 fL (78.0-102.0); Mean Platelet Volume 9.6 fl (9.2-11.8); Monocytes Percent Auto 10.6 % (2.0-11.0); Neutrophils Absolute Auto 7.1 K/mm3 (1.7-7.2); Nucleated Red Blood Cells Absolute Auto 0.14 K/mm3 (0.00-0.00); Nucleated Red Blood Cells Perc 1.5 % (0-0.0); Platelet Count Result 332 K/mm3 (150-420); Red Cell Distribution Width 21.1 % (11.6-14.4); White Blood Count 9.4 K/mm3 (4.8-10.8)
[2023-04-08 10:59] LABS: INR 1.2; Partial Thromboplastin Time 27.3 SEC (23.90-30.70); Prothrombin Time 13.2 Seconds (9.50-12.10)
[2023-04-08 11:04] LABS: Lactic Acid Reflex 1.5 mmol/L (0.4-2.0)
[2023-04-08 11:06] LABS: Alanine Aminotransferase 37 U/L (14-59); Albumin Level 3.4 g/dL (3.4-5.0); Alkaline Phosphatase 274 U/L (46-116); Anion Gap 8 mmol/L (8-16); Aspartate Amino Transferase 18 U/L (15-37); Bilirubin,Total 1.2 mg/dL (0.00-1.00); Blood Urea Nitrogen 21 mg/dL (7-18); Calcium 9.3 mg/dL (8.5-10.1); Carbon Dioxide 32 mmol/L (21-32); Chloride 97 mmol/L (98-108); Estimated CRCL calculation 20 ml/min; Estimated Glomerular Filt Rate 25; Glucose 153 mg/dL (70-99); NT Pro B Type Natriuretic Pept 16232 pg/mL (0-125); Osmolality Calculated 290 mOsm/kg (285-295); Potassium 4.2 mmol/L (3.5-5.1); Sodium 137 mmol/L (136-145); Troponin I 26.1 ng/L (0.00-60.4)
[2023-04-08 11:10] LABS: D Dimer 0.63 mg/L (0.19-0.50)
[2023-04-08] MEDS: DIGOXIN INJ 250 MCG/ML 2 ML AMP (*BKC) IV PUSH (12:05)
[2023-04-08 12:50] LABS: Influenza A QL RT-PCR Negative (Negative); Influenza B QL RT-PCR Negative (Negative); RSV RNA, RT-PCR Negative (Negative); SARS-CoV-2 RNA PCR Negative (Negative)
[2023-04-08 13:48] LABS: Troponin I 22.8 ng/L (0.00-60.4)
== END 2023-04-08 14:37 | disposition short-term general hospital (02) ==
PROVIDERS: Emergency Provider Internal Medicine Critical Care Medicine; PCP Family Medicine
DX: J44.9 Chronic obstructive pulmonary disease, unspecified (principal); R07.9 Chest pain, unspecified; D64.9 Anemia, unspecified; I48.91 Unspecified atrial fibrillation; I11.0 Hypertensive heart disease with heart failure; I50.9 Heart failure, unspecified; E78.5 Hyperlipidemia, unspecified; F17.210 Nicotine dependence, cigarettes, uncomplicated; Z20.822 Contact with and (suspected) exposure to COVID-19
CPT/HCPCS: 36415; 71045; 80053; 83605; 83880; 84484; 85025; 85380; 85610; 85730; 87637; 93005; 94640; 96374; 96375; 99285; A9270; J1160; J2270; J2405

== ENCOUNTER 2023-04-08 15:21 | Inpatient (IN) | payer MEDICARE, SELFPAY ==
[2023-04-08] VITALS (10 sets, daily range): BP systolic 95–109; BP diastolic 46–66; PULSE 83–110; RESP 18–20; TEMP 36.6–36.8; O2SAT 93–98; BMI 28.3
--- NOTE | ~2023-04-08 | US_ITS ---
EXAMINATION: US venous doppler [facility] DATE: 04/08/2023 19:49 INDICATION: Bilateral leg swelling, elevated d-dimer. TECHNIQUE: Grayscale images without and with compression and Doppler images of the bilateral lower ex tremity veins were obtained. COMPARISON: None FINDINGS: The right common femoral vein, profunda (deep) femoral vein, femoral vein, popliteal vein, peroneal v ein, posterior tibial veins, gastrocnemius vein, and greater saphenous vein are patent. Subjacent navi ma. The left common femoral vein, profunda (deep) femoral vein, femoral vein, popliteal vein, peroneal v ein, posterior tibial veins, gastrocnemius vein, and greater saphenous vein are patent. Substantial e angi. IMPRESSION: 1. Patent bilateral lower extremity veins. No evidence of deep venous thrombosis. Reviewed, dictated and finalized at location K. IMPRESSION: 1. Patent bilateral lower extremity veins. No evidence of deep venous thrombos is.
--- NOTE | ~2023-04-08 | NM_ITS ---
EXAMINATION: NM pulmonary perfusion DATE: 04/09/2023 13:20 INDICATION: Shortness of breath. TECHNIQUE: 5.27 mCi Tc-99m MAA was administered intravenously for perfusion images. Scintigraphic im ages of the chest were obtained. COMPARISON: Chest single view 04/08/2023, CT abdomen and pelvis 04/09/2023 FINDINGS: Perfusion images show matched moderate sized and large defects in the lower lobes. Cardiomegaly is no rola. IMPRESSION: 1. Nondiagnostic (intermediate probability for pulmonary embolism). Reviewed, dictated and finalized at location A.
--- NOTE | ~2023-04-08 | CT_ITS ---
EXAMINATION: CT abdomen pelvis wo con DATE: 04/09/2023 13:08 INDICATION: Abdominal hematoma. TECHNIQUE: Computed tomography (CT) of the abdomen and pelvis was performed without intravenous contr ast. Automated exposure control and iterative reconstruction technique were employed. The dose-length product was 504.58 mGy-cm. COMPARISON: Chest CT 02/19/2023 FINDINGS: The visualized portions of the lung bases demonstrate mild atelectasis with a dependent pre dominance. There are trace pleural effusions. Cardiomegaly is noted. There are coronary artery calcif ications. No pericardial effusion. Calcifications in the liver and spleen are consistent with old gra nulomatous disease. The gallbladder is absent. The pancreas and adrenal glands are normal. There is a 15 mm cyst in right kidney. There is moderate atrophy of left kidney. There is calcified atheroscler osis of the aorta and many of the other arteries. There is a left inguinal hernia containing fat. The re is diverticulosis of the colon without evidence of diverticulitis. The appendix is not visualized. There are no pathologically enlarged lymph nodes. There is no free intraperitoneal fluid. There is a n umbilical hernia containing fat. Body wall edema is noted. There is a stent in right superficial fe moral artery. There are old healed bilateral rib fractures. There is mild thoracolumbar spondylosis. IMPRESSION: 1. Left inguinal hernia containing fat. 2. Moderate atrophy of left kidney. 3. Umbilical hernia containing fat. Reviewed, dictated and finalized at location A.
--- NOTE | 2023-04-08 15:27 | ADMGEN ---
This patient, Flakita Palomares, was admitted to IMU Room 209-01 @ 1515 from [facility] via ambulance. O2 on 3l/nc (home setting) Patient oriented to hospital policies and general routines including ID bracelet, bed and alarms, visiting hours, pain management, procedures, bathroom and other care routines, personal items, smoking policy, room service/diet, and visiting hours. Information on how to activate the Rapid Response Team has been discussed. Patient are encouraged to report perceived risks to care and to ask questions if they do not understand what they are told or what they should do.
--- NOTE | 2023-04-08 16:08 | PM.IMHP ---
H&P: HPI History of Present Illness Date/Time: 04/08/23 16:08 Chief Complaint: Chest pain Narrative: This is a 73-year-old female patient who has a history of hypertension, COPD, congestive heart failure, atrial fibrillation with inability to take anticoagulation, chronic kidney disease, and chronic hypoxia on oxygen at 3 to 3.5 L. the patient stated that she had left-sided chest pain that was just below the left breast and radiated to her left shoulder. The patient is tender to touch in that area. The pain was unprovoked. She denied any fever chills no nausea no vomiting. She developed weakness and shortness of breath during this episode. She would has [facility] and rated her pain 10/10. The patient has chronic elevation of D-dimer and troponins. Labs were drawn at [facility]. Her D-dimer was noted to be 0.63 last month it was 0.53. BUN is 21 creatinine 1.98. Glucose is 153. BNP was noted to be 16,232. She was negative for influenza A/B COVID and RSV. Chest x-ray was read as stable cardiomegaly. EKG was read as atrial fibrillation with ventricular rate controlled. Poor R-wave progression in anterior leads suggestive of an old ST elevation. The patient stated that she was given a nebulizer treatment and steroids at [facility]. The patient is being admitted to inpatient status on the date of service of 04/08/2012. Review of Systems Review of Systems: All systems reviewed & are unremarkable except as noted in HPI and below Constitutional: Constitutional: Reports as per HPI and Reports no additional constitutional complaints Eyes: Eyes: Reports as per HPI and Reports no additional eye complaints ENT: Reports system reviewed and no additional complaints, except as documented and Reports Normal hearing present Cardiovascular: Cardiovascular: Reports no additional cardiovascular complaints Respiratory: Respiratory: Reports no additional respiratory complaints and Reports no additional respiratory complaints Gastrointestinal: Gastrointestinal: Reports as per HPI and Reports no additional gastrointestinal complaints Musculoskeletal: Musculoskeletal: Reports no additional musculoskeletal complaints Integumentary/Breasts: Skin/Breast: Reports system reviewed and no additional complaints, except as docu and Reports as per HPI Neurologic: Reports system reviewed and no additional complaints, except as documented, Reports as per HPI and Reports Normal hearing present Psychiatric: Psychiatric: Reports no additional psychiatric complaints and Reports as per HPI Endocrine: Endocrine: Reports no additional endocrine complaints Hematologic/Lymphatic: Hematologic/Lymphatic: Reports no additional hematologic/lymphatic complaints Allergic/Immunologic: Allergic/Immunologic: Reports no additional allergic/immunologic complaints [facility] Past Medical History Medical History (Updated 04/08/23 @ 17:53 by Denise Montes NP) Atrial fibrillation AVM (arteriovenous malformation) CHF (congestive heart failure) COPD (chronic obstructive pulmonary disease) HTN (hypertension) Hyperlipemia Overweight Psoriasis Sleep apnea Tobacco dependence Surgical History Surgical History (Updated 04/08/23 @ 17:55 by Denise Montes NP) H/O dilation and curettage History of appendectomy History of renal stent Hx of cholecystectomy Hx of hysterectomy Hx of tonsillectomy Family History Family History Mother Family history of chronic obstructive pulmonary disease Other Family history of arthritis Family history of heart disease in male family member before age 55 Hypertension Social History Social History (Updated 04/08/23 @ 17:55 by Denise Montes NP) Social History: The patient stated that she quit smoking approximately 5 and half weeks ago. The patient has 3 children. 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 She lives with her . Her husb
[2023-04-08] MEDS: FUROSEMIDE 20 MG TABLET 60 MG PO (18:28)
[2023-04-08] MEDS: PANTOPRAZOLE 40 MG TABLET PO (18:29)
[2023-04-08] MEDS: POTASSIUM CHLORIDE 20 MEQ ER TABLET 40 MEQ PO (18:29)
[2023-04-08] MEDS: methylPREDNISolone SOD SUCC 125 MG VIAL 60 MG IV PUSH ×2 (18:32→23:47)
[2023-04-08 18:36] LABS: Hematocrit 27.4 % (37.0-47.0); Hemoglobin 7.2 g/dL (12.0-15.0)
[2023-04-08] MEDS: IPRATROPIUM BR 0.02% INH SOLN 0.5 MG/2.5 ML VIAL INHALATION (19:50)
[2023-04-08] MEDS: ALBUTEROL SULFATE NEB 2.5 MG/3 ML INH INHALATION (19:50)
[2023-04-08 19:53] LABS: Troponin I 0.012 ng/mL (0.000-0.034)
[2023-04-09] VITALS (32 sets, daily range): BP systolic 101–121; BP diastolic 53–70; PULSE 74–113; RESP 16–22; TEMP 35.7–36.7; O2SAT 91–100
[2023-04-09 02:02] LABS: Hemoglobin 6.7 g/dL (12.0-15.0)
[2023-04-09] MEDS: IPRATROPIUM BR 0.02% INH SOLN 0.5 MG/2.5 ML VIAL INHALATION ×4 (02:53→20:35)
[2023-04-09] MEDS: ALBUTEROL SULFATE NEB 2.5 MG/3 ML INH INHALATION ×4 (02:53→20:35)
[2023-04-09 03:27] LABS: Basophils Percent Auto 0.1 % (0.2-1.2); Hematocrit 24.8 % (37.0-47.0); Immature Granulocyte Absolute 0.05 K/mm3 (0.00-0.031); Immature Granulocyte Percent A 0.4 % (0-0.5); Lymphocytes Absolute Auto 0.53 K/mm3 (0.9-3.2); Lymphocytes Percent Auto 4.6 % (18.3-44.2); Mean Corpuscular HGB Conc 26.6 g/dl (32-36); Mean Corpuscular Hemoglobin 20.6 pg (26-34); Mean Corpuscular Volume 77.5 fl (80-100); Monocytes Absolute Auto 0.4 K/mm3 (0.1-0.6); Neutrophils Absolute Auto 10.7 K/mm3 (1.3-6.7); Neutrophils Percent Auto 91.9 % (45.5-73.1); Nucleated Red Blood Cells Absolute Auto 0.1 K/mm3 (0.0-0.012); Nucleated Red Blood Cells Perc 0.8 % (0.0-0.2); Platelet Count Result 292 k/mm3 (150-375); Red Cell Distribution Width 21.1 % (11.5-14.5); White Blood Count 11.6 K/mm3 (4.5-10.0)
[2023-04-09 03:39] LABS: Lactic Acid Reflex 0.9 mmol/L (0.7-2.0)
[2023-04-09 03:40] LABS: Alanine Aminotransferase 33 U/L (6-35); Albumin Level 3.4 g/dL (3.5-5.1); Alkaline Phosphatase 219 U/L (38-126); Anion Gap 2 mmol/L (8-16); Aspartate Amino Transferase 24 U/L (14-36); Bilirubin,Total 1.2 mg/dL (0.2-1.3); Blood Urea Nitrogen 21 mg/dL (7-17); Calcium 8.6 mg/dL (8.4-10.2); Carbon Dioxide 37 mmol/L (22-30); Chloride 94 mmol/L (98-107); Estimated CRCL calculation 19 ml/min; Estimated Glomerular Filt Rate 23; Glucose 185 mg/dL (65-110); Magnesium 2.1 mg/dL (1.6-2.3); Potassium 4.4 mmol/L (3.4-5.0); Sodium 133 mmol/L (137-145)
[2023-04-09 04:14] LABS: Hemoglobin 6.6 g/dL (12.0-15.0)
[2023-04-09 04:32] LABS: Thyroid Stimulating Hormone Reflex 0.743 uIU/mL (0.465-4.68)
[2023-04-09] MEDS: SODIUM CHLORIDE 0.9% IV 250 ML 30 ML IV CONT (05:54)
[2023-04-09] MEDS: methylPREDNISolone SOD SUCC 125 MG VIAL 60 MG IV PUSH ×4 (05:54→23:04)
--- NOTE | 2023-04-09 07:57 | WPDGICN ---
Assessment and Plan Assessment and plan (1) Iron deficiency anemia: Qualifiers: Iron deficiency anemia type: inadequate dietary iron intake Qualified Code(s): D50.8 - Other iron deficiency anemias Code(s): D50.9 - Iron deficiency anemia, unspecified Status: Chronic Assessment and Plan: in the last couple years she has had numerous investigations at various hospitals including 4 colonoscopies and 2 EGDs. Her studies are mostly done in [place] and also in [place]. She also had a capsule study of the small bowel which she was told showed multiple scattered AVMs. She is aware that these are unable to be addressed because scopes do not reach down that far into the small bowel. It was hoped that going off her anticoagulant would keep her from bleeding which we presume is why her blood counts dropped from time to time (2) GI bleed: Qualifiers: GI bleed type/associated pathology: unspecified gastrointestinal hemorrhage type Qualified Code(s): K92.2 - Gastrointestinal hemorrhage, unspecified Code(s): K92.2 - Gastrointestinal hemorrhage, unspecified Status: Acute Assessment and Plan: she denies seen any sign of bleeding or any black tarry stools. He has been assume for the last couple years that she has had intermittent bleeding due to the fact that she has had drops in her blood counts while she was on Eliquis and a few months ago she was found to have AVMs throughout the small bowel. (3) AVM (arteriovenous malformation): Code(s): Q27.30 - Arteriovenous malformation, site unspecified Status: Acute Assessment and Plan: These were found on video capsule study of the small bowel at [facility]. She was informed that these could not be reached with the scope. (4) A-fib: Qualifiers: Atrial fibrillation type: unspecified Qualified Code(s): I48.91 - Unspecified atrial fibrillation Code(s): I48.91 - Unspecified atrial fibrillation Status: Acute Assessment and Plan: She had been on Eliquis for atrial fibrillation for long time. This has been held. She was also taken off aspirin and only takes Plavix now. Plan At this point I have no plans for endoscopic investigation because of the multiple endoscopies she has had over the past couple of years with no findings. We can only hope that her blood counts will finally stabilized now that she is off Eliquis. It is possible that she may have to stop Plavix also to help prevent losing blood. Again however there is never been to my knowledge any evidence of active bleeding. Okay from my perspective to advance her diet GI Consult Note Consult date/time: 04/09/23 07:57 HPI: this is a 73-year-old female who?has had several investigations so far this year for blood loss anemia.? She is chronically anticoagulated for atrial fibrillation.? It appears that she was hospitalized in [place] in October and had EGD and colonoscopy performed by Dr. Spann, with no significant findings.? She was hospitalized in [place] at [facility] with anemia and appears that she had colonoscopy done twice as well as an EGD.? By , who also ordered a capsule endoscopy study.? Although I cannot tell from the images because they are black and white the summary indicates that she had ?scattered AVMs throughout the small bowel? She was finally told that she could be taken off Eliquis and aspirin.? She only takes Plavix now.? Review of Systems Review of Systems: All systems reviewed & are unremarkable except as noted in HPI and below [facility] Past Medical History Medical History Atrial fibrillation AVM (arteriovenous malformation) CHF (congestive heart failure) COPD (chronic obstructive pulmonary disease) HTN (hypertension) Hyperlipemia Overweight Psoriasis Sleep apnea Tobacco dependence Surgical H
--- NOTE | 2023-04-09 09:03 | PM.IMPN ---
Progress Note: A&P Assessment and Plan (1) COPD exacerbation: Code(s): J44.1 - Chronic obstructive pulmonary disease with (acute) exacerbation Status: Acute Assessment and Plan: Continue with Solu-Medrol, nebulizer treatment, and Singulair. The patient is chronically on oxygen between 3 to 3.5 L. She is currently on 3 L. (2) CHF (congestive heart failure): Qualifiers: Heart failure chronicity: chronic Heart failure type: unspecified Qualified Code(s): I50.9 - Heart failure, unspecified Code(s): I50.9 - Heart failure, unspecified Status: Chronic Assessment and Plan: Last echo was dated 10/28/2022. Her EF was noted to be 54% moderate enlargement of right ventricle mild right ventricular hypokinesis. Severe tricuspid regurgitation. Aortic cusps appear moderately calcified. Continue with daily Lasix. Continue with metoprolol. (3) Atrial fibrillation: Qualifiers: Atrial fibrillation type: paroxysmal Qualified Code(s): I48.0 - Paroxysmal atrial fibrillation Code(s): I48.91 - Unspecified atrial fibrillation Status: Chronic Assessment and Plan: Patient has a history of AVM and had been anticoagulated in the past but she is currently not on anticoagulation. Continue with metoprolol (4) Hyperlipemia: Qualifiers: Hyperlipidemia type: unspecified Qualified Code(s): E78.5 - Hyperlipidemia, unspecified Code(s): E78.5 - Hyperlipidemia, unspecified Status: Chronic Assessment and Plan: Continue with Crestor (5) HTN (hypertension): Qualifiers: Hypertension type: unspecified Qualified Code(s): I10 - Essential (primary) hypertension Code(s): I10 - Essential (primary) hypertension Status: Chronic Assessment and Plan: Continue with metoprolol (6) History of GI bleed: Code(s): Z87.19 - Personal history of other diseases of the digestive system Status: Acute Assessment and Plan: She was followed by Dr. Lomas. His office note was from 03/10/2023 his is a 73-year-old female who has had several investigations so far this year for blood loss anemia.? She is chronically anticoagulated for atrial fibrillation.? It appears that she was hospitalized in [place] in October and had EGD and colonoscopy performed by Dr. Spann, with no significant findings.? She was hospitalized in [place] at [facility] with anemia and appears that she had colonoscopy done twice as well as an EGD.? By , who also ordered a capsule endoscopy study. the summary indicates that she had ?scattered AVMs throughout the small bowel? She was finally told that she could be taken off Eliquis and aspirin.? She only takes Plavix now. now patient has a profound anemia, received 1 pack RBC 04/09 Consult GI for further evaluation and management Appreciate GI consultation, no plan for scope, will stop Plavix per GI recommendation (7) Stage 3b chronic kidney disease: Code(s): N18.32 - Chronic kidney disease, stage 3b Status: Chronic Assessment and Plan: Her BUN is 21 creatinine 1.9. Her baseline is somewhere between 1.2 and 1.35 on her creatinine. (8) Iron deficiency anemia: Qualifiers: Iron deficiency anemia type: inadequate dietary iron intake Qualified Code(s): D50.8 - Other iron deficiency anemias Code(s): D50.9 - Iron deficiency anemia, unspecified Status: Chronic Assessment and Plan: Possibly acute on chronic blood-loss anemia Hemoglobin 6.7 04/09, received 1 pack RBC Patient has upper abdominal pain CT abdomen have basis shows no intra-abdominal bleeding Follow hemoglobin q.6 hours Transfuse p.r.n. Follow-up for ferritin and iron panel (9) Chest pain: Qualifiers: Chest pain type: unspecified Qualified Code(s): R07.9 - Chest pain, unspecified Code(s): R07.9 - Chest pain, unspecified Status: Inactive As
[2023-04-09] MEDS: ASCORBIC ACID 500 MG TABLET PO (09:23)
[2023-04-09] MEDS: CLOPIDOGREL BISULFATE 75 MG TABLET PO (09:24)
[2023-04-09] MEDS: FLUTICASONE PROPIONATE 0.05% NA SPR 16 GM BTL (*BKC) 1 SPRAY NASAL (09:24)
[2023-04-09] MEDS: FUROSEMIDE 20 MG TABLET 60 MG PO ×2 (09:24→17:53)
[2023-04-09] MEDS: METOPROLOL SUCCINATE EXT REL 25 MG TABCR PO (09:24)
[2023-04-09] MEDS: FERROUS SULFATE 325 MG TABLET DR PO (09:24)
[2023-04-09] MEDS: PANTOPRAZOLE 40 MG TABLET PO ×2 (09:25→17:54)
[2023-04-09] MEDS: ROSUVASTATIN 10 MG TABLET 40 MG PO (09:25)
[2023-04-09] MEDS: POTASSIUM CHLORIDE 20 MEQ ER TABLET 40 MEQ PO ×2 (09:25→17:54)
[2023-04-09] MEDS: MONTELUKAST SODIUM 10 MG TABLET PO (09:25)
[2023-04-09] MEDS: MULTIVITAMINS THERAPEUTIC TAB (*BKC) 1 TABLET PO (09:25)
[2023-04-09 12:09] LABS: Hematocrit 29.6 % (37.0-47.0)
[2023-04-09 18:57] LABS: Hemoglobin 7.7 g/dL (12.0-15.0)
[2023-04-09 20:38] LABS: Iron 36 ug/dL (37-170)
[2023-04-09 20:51] LABS: Percent Iron Saturation 7 % (20-50)
[2023-04-10] VITALS (18 sets, daily range): BP systolic 95–125; BP diastolic 46–90; PULSE 71–132; RESP 18–22; TEMP 35.9–36.9; O2SAT 92–100
[2023-04-10] MEDS: oxyCODONE HCL (*CRX) 5 MG TAB IR PO ×2 (01:08→18:17)
--- NOTE | 2023-04-10 07:00 | PC.NURSE ---
Paper documentation exists on this patient due to [facility] downtime on 04/10/23 from to [0700] .
[2023-04-10 07:31] LABS: Hematocrit 27.4 % (37.0-47.0); Hemoglobin 7.7 g/dL (12.0-15.0)
[2023-04-10] MEDS: ALBUTEROL SULFATE NEB 2.5 MG/3 ML INH INHALATION ×3 (07:37→20:53)
[2023-04-10] MEDS: IPRATROPIUM BR 0.02% INH SOLN 0.5 MG/2.5 ML VIAL INHALATION ×3 (07:37→20:53)
[2023-04-10] MEDS: traMADol HCL (*CRX) 50 MG TABLET PO (10:30)
[2023-04-10] MEDS: FLUTICASONE PROPIONATE 0.05% NA SPR 16 GM BTL (*BKC) 1 SPRAY NASAL (10:30)
[2023-04-10] MEDS: ROSUVASTATIN 10 MG TABLET 40 MG PO (10:32)
[2023-04-10] MEDS: MULTIVITAMINS THERAPEUTIC TAB (*BKC) 1 TABLET PO (10:33)
[2023-04-10] MEDS: PANTOPRAZOLE 40 MG TABLET PO ×2 (10:33→18:18)
[2023-04-10] MEDS: METOPROLOL SUCCINATE EXT REL 25 MG TABCR PO (10:34)
[2023-04-10] MEDS: FUROSEMIDE 20 MG TABLET 60 MG PO ×2 (10:35→18:18)
[2023-04-10] MEDS: ASCORBIC ACID 500 MG TABLET PO (10:36)
[2023-04-10] MEDS: FERROUS SULFATE 325 MG TABLET DR PO ×2 (10:36→18:18)
[2023-04-10] MEDS: MONTELUKAST SODIUM 10 MG TABLET PO (10:36)
[2023-04-10] MEDS: POTASSIUM CHLORIDE 20 MEQ ER TABLET 40 MEQ PO ×2 (10:40→18:18)
--- NOTE | 2023-04-10 10:45 | P.CDI_ITS ---
CDI Query Clarification Request Documented history fo CHF. CHF noted on the assessment and plan. Lasix listed as a home medication. Patient receiving Lasix. Elevated BNP on the 04/08/23 lab work. Please specify type and acuity of heart failure if known. * Acute * Chronic * Acute on Chronic * Unknown * Systolic * Diastolic * Combined Systolic and Diastolic * Unknown <Naty Meade RN - Last Filed: 04/10/23 10:48> Clarified Diagnosis Clarified Diagnosis: Chronic diastolic heart failure <Cesar Myers MD - Last Filed: 04/10/23 11:08>
--- NOTE | 2023-04-10 11:08 | PM.IMPN ---
Progress Note: A&P Assessment and Plan (1) Chest pain: Qualifiers: Chest pain type: unspecified Qualified Code(s): R07.9 - Chest pain, unspecified Code(s): R07.9 - Chest pain, unspecified Status: Inactive Assessment and Plan: Patient came in with complaining of left chest pain, radiating to shoulder Troponin negative EKG shows AFib RVR, with nonspecific T-wave changes The chest pain may be related to anemia, but has risk of coronary artery disease Consult flat breakdown processor for evaluation treatment (2) COPD exacerbation: Code(s): J44.1 - Chronic obstructive pulmonary disease with (acute) exacerbation Status: Acute Assessment and Plan: Dyspnea is improving Discontinue solu-Medrol, Continue nebulizer treatment, and Singulair. The patient is chronically on oxygen between 3 to 3.5 L. She is currently on 3 L. (3) CHF (congestive heart failure): Qualifiers: Heart failure chronicity: chronic Heart failure type: unspecified Qualified Code(s): I50.9 - Heart failure, unspecified Code(s): I50.9 - Heart failure, unspecified Status: Chronic Assessment and Plan: Last echo was dated 10/28/2022. Her EF was noted to be 54% moderate enlargement of right ventricle mild right ventricular hypokinesis. Severe tricuspid regurgitation. Aortic cusps appear moderately calcified. Continue with daily Lasix. Continue with metoprolol. (4) Atrial fibrillation: Qualifiers: Atrial fibrillation type: paroxysmal Qualified Code(s): I48.0 - Paroxysmal atrial fibrillation Code(s): I48.91 - Unspecified atrial fibrillation Status: Chronic Assessment and Plan: Patient has a history of AVM and had been anticoagulated in the past but she is currently not on anticoagulation. Continue with metoprolol (5) Hyperlipemia: Qualifiers: Hyperlipidemia type: unspecified Qualified Code(s): E78.5 - Hyperlipidemia, unspecified Code(s): E78.5 - Hyperlipidemia, unspecified Status: Chronic Assessment and Plan: Continue with Crestor (6) HTN (hypertension): Qualifiers: Hypertension type: unspecified Qualified Code(s): I10 - Essential (primary) hypertension Code(s): I10 - Essential (primary) hypertension Status: Chronic Assessment and Plan: Continue with metoprolol (7) History of GI bleed: Code(s): Z87.19 - Personal history of other diseases of the digestive system Status: Acute Assessment and Plan: She was followed by Dr. Lomas. His office note was from 03/10/2023 his is a 73-year-old female who has had several investigations so far this year for blood loss anemia.? She is chronically anticoagulated for atrial fibrillation.? It appears that she was hospitalized in [place] in October and had EGD and colonoscopy performed by Dr. Spann, with no significant findings.? She was hospitalized in [place] at [facility] with anemia and appears that she had colonoscopy done twice as well as an EGD.? By , who also ordered a capsule endoscopy study. the summary indicates that she had ?scattered AVMs throughout the small bowel? She was finally told that she could be taken off Eliquis and aspirin.? She only takes Plavix now. now patient has a profound anemia, received 1 pack RBC 04/09 Consult GI for further evaluation and management Appreciate GI consultation, no plan for scope, will stop Plavix per GI recommendation (8) Stage 3b chronic kidney disease: Code(s): N18.32 - Chronic kidney disease, stage 3b Status: Chronic Assessment and Plan: Her BUN is 21 creatinine 1.9. Her baseline is somewhere between 1.2 and 1.35 on her creatinine. (9) Iron deficiency anemia: Qualifiers: Iron deficiency anemia type: inadequate dietary iron intake Qualified Code(s): D50.8 - Other iron deficiency anemias Code(s): D50.9 - Iron deficiency anemi
[2023-04-10 11:31] LABS: Anion Gap 6 mmol/L (8-16); Blood Urea Nitrogen 26 mg/dL (7-17); Calcium 8.8 mg/dL (8.4-10.2); Carbon Dioxide 33 mmol/L (22-30); Chloride 93 mmol/L (98-107); Estimated CRCL calculation 24 ml/min; Estimated Glomerular Filt Rate 30; Glucose 144 mg/dL (65-110); Potassium 4.7 mmol/L (3.4-5.0); Sodium 132 mmol/L (137-145)
[2023-04-10 11:59] LABS: Mean Corpuscular HGB Conc 26.7 g/dl (32-36); Mean Corpuscular Hemoglobin 21.1 pg (26-34); Mean Corpuscular Volume 78.9 fl (80-100); Platelet Count Result 301 k/mm3 (150-375); Red Cell Distribution Width 21.6 % (11.5-14.5); White Blood Count 14.4 K/mm3 (4.5-10.0)
[2023-04-10] MEDS: IRON SUCROSE COMPLEX 200 MG in SODIUM CHLORIDE 0.9% IV 50 ML 120 MG IVPB (13:15)
[2023-04-10] MEDS: methylPREDNISolone SOD SUCC 125 MG VIAL 60 MG IV PUSH (13:15)
--- NOTE | 2023-04-10 13:30 | PCCCNOTE ---
On 04/10/23, the student, [Chayo Powell], provided care and completed [facility] documentation on this patient. I have reviewed the student's documentation and agree with the findings.
--- NOTE | 2023-04-10 14:40 | PM.CNCAR ---
Assessment and Plan Assessment and plan (1) Chest pain: Code(s): R07.9 - Chest pain, unspecified Status: Acute (2) AVM (arteriovenous malformation): Code(s): Q27.30 - Arteriovenous malformation, site unspecified Status: Acute (3) Atrial fibrillation: Qualifiers: Atrial fibrillation type: paroxysmal Qualified Code(s): I48.0 - Paroxysmal atrial fibrillation Code(s): I48.91 - Unspecified atrial fibrillation Status: Chronic Plan episode of chest pain that occurred on Thursday of this past week in the setting of severe anemia with microcytic indices. The patient appears to have be having chronic GI blood loss from small bowel AVMs that were noticed on capsule endoscopy I believe at [facility] recently. She for this reason has recently taken off of anticoagulation and aspirin therapy. She has never had a coronary angiogram but undoubtedly she has some coronary disease given her history of peripheral vascular disease atrial fibrillation and longstanding cigarette smoking. She certainly could be subject to having or her at risk for having ischemic chest pain the setting of severe anemia which was the case on Thursday when she arrived here. Her blood volume has been improved and she is now asymptomatic. She is not a candidate for an ischemia evaluation in my opinion since she is not a candidate for going to the cardiac catheterization lab under any circumstances given this significant recurrent problematic GI bleeding. Clopidogrel should be stopped at this time as well in my opinion the hospitalists have already done that. At this time I do not have any other specific cardiac recommendations to make. Please call me if you have any questions regarding this situation or this opinion Lawrence Moe MD [facility] History of Present Illness History of Present Illness Consult date/time: 04/10/23 14:40 Reason For Visit: chest pain,copd acute renal failure Narrative: this is a 73-year-old woman I am asked to see at the request the hospitalist because of chest pain. She is unknown to me but apparently is known to and follows with Dr. Barriga in our practice. The patient was transferred here on Thursday of this week from [place] because of some chest pain and severe anemia. She follows with my partner, because of atrial fibrillation known peripheral vascular disease. She is a lady with chronic cigarette smoking that just quit last month. She was experiencing breathlessness and chest pain on admission she was very anemic with a hemoglobin of 6 g and she with microcytic indices. Extensive evaluation here at [place], in [place] and at [facility] in recent months evaluating this anemia. She appears to have been found to have significant arteriovenous malformations in the small bowel as the likely for this. As result of this systemic anticoagulation has been stopped as well as aspirin therapy. On the arrival to the hospital here she was still taking clopidogrel 75 mg daily. She has not had any previous coronary interventions. She has never had a coronary angiogram to the best of my knowledge or to her recollection. After being transfused red cells her hemoglobin is in the range of 8 g and she feels better in terms of chest pain. The pain that she had on Thursday was a sharp sensation in the left lateral chest wall radiating down into the left inframammary region. According to the physical exam on Thursday at that area was tender to palpation and was felt to be chest wall pain according to the physical exam. Reasons that are not clear on Thursday afternoon we are receiving a consult to see this lady she does feel better than she did on Thursday and offers no other complaints. Review of Systems Constitutional: Constitutional: Reports lethargy Eyes: Eyes: Reports no additional eye complaints ENT: Reports system reviewed and no additional complaints
--- NOTE | 2023-04-10 16:01 | PM.IMPN ---
Progress Note: A&P Assessment and Plan (1) Chest pain: Qualifiers: Chest pain type: unspecified Qualified Code(s): R07.9 - Chest pain, unspecified Code(s): R07.9 - Chest pain, unspecified Status: Inactive Assessment and Plan: Patient came in with complaining of left chest pain, radiating to shoulder Troponin negative EKG shows AFib RVR, with nonspecific T-wave changes The chest pain may be related to anemia, but has risk of coronary artery disease Consult it associate for evaluation treatment (2) COPD exacerbation: Code(s): J44.1 - Chronic obstructive pulmonary disease with (acute) exacerbation Status: Acute Assessment and Plan: Dyspnea is improving Discontinue solu-Medrol, Continue nebulizer treatment, and Singulair. The patient is chronically on oxygen between 3 to 3.5 L. She is currently on 3 L. (3) CHF (congestive heart failure): Qualifiers: Heart failure type: unspecified Heart failure chronicity: chronic Qualified Code(s): I50.9 - Heart failure, unspecified Code(s): I50.9 - Heart failure, unspecified Status: Chronic Assessment and Plan: Last echo was dated 10/28/2022. Her EF was noted to be 54% moderate enlargement of right ventricle mild right ventricular hypokinesis. Severe tricuspid regurgitation. Aortic cusps appear moderately calcified. Continue with daily Lasix. Continue with metoprolol. (4) Atrial fibrillation: Qualifiers: Atrial fibrillation type: paroxysmal Qualified Code(s): I48.0 - Paroxysmal atrial fibrillation Code(s): I48.91 - Unspecified atrial fibrillation Status: Chronic Assessment and Plan: Patient has a history of AVM and had been anticoagulated in the past but she is currently not on anticoagulation. Continue with metoprolol (5) Hyperlipemia: Qualifiers: Hyperlipidemia type: unspecified Qualified Code(s): E78.5 - Hyperlipidemia, unspecified Code(s): E78.5 - Hyperlipidemia, unspecified Status: Chronic Assessment and Plan: Continue with Crestor (6) HTN (hypertension): Qualifiers: Hypertension type: unspecified Qualified Code(s): I10 - Essential (primary) hypertension Code(s): I10 - Essential (primary) hypertension Status: Chronic Assessment and Plan: Continue with metoprolol (7) History of GI bleed: Code(s): Z87.19 - Personal history of other diseases of the digestive system Status: Acute Assessment and Plan: She was followed by Dr. Lomas. His office note was from 03/10/2023 his is a 73-year-old female who has had several investigations so far this year for blood loss anemia.? She is chronically anticoagulated for atrial fibrillation.? It appears that she was hospitalized in [place] in October and had EGD and colonoscopy performed by Dr. Spann, with no significant findings.? She was hospitalized in [place] at [facility] with anemia and appears that she had colonoscopy done twice as well as an EGD.? By , who also ordered a capsule endoscopy study. the summary indicates that she had ?scattered AVMs throughout the small bowel? She was finally told that she could be taken off Eliquis and aspirin.? She only takes Plavix now. now patient has a profound anemia, received 1 pack RBC 04/09 Consult GI for further evaluation and management Appreciate GI consultation, no plan for scope, will stop Plavix per GI recommendation (8) Stage 3b chronic kidney disease: Code(s): N18.32 - Chronic kidney disease, stage 3b Status: Chronic Assessment and Plan: Her BUN is 21 creatinine 1.9. Her baseline is somewhere between 1.2 and 1.35 on her creatinine. (9) Iron deficiency anemia: Qualifiers: Iron deficiency anemia type: inadequate dietary iron intake Qualified Code(s): D50.8 - Other iron deficiency anemias Code(s): D50.9 - Iron deficiency anemi
--- NOTE | 2023-04-10 22:03 | PC.NURSE ---
This patient, Flakita Palomares, was transferred to [ [id number]] on 04/10/23 at 2204. Personal belongings sent with patient. Report given to [Rolando mejia ]. Appropriate documentation sent with patient.
--- NOTE | 2023-04-10 22:33 | PC.NURSE ---
Patient was transferred to 3 Medical room 341. Patient was orientated to the room and provided support in getting them settled.
[2023-04-11] VITALS (19 sets, daily range): BP systolic 114–124; BP diastolic 71–79; PULSE 66–128; RESP 16–18; TEMP 36.3–36.8; O2SAT 96–100
[2023-04-11] MEDS: ALBUTEROL SULFATE NEB 2.5 MG/3 ML INH INHALATION ×4 (02:20→19:49)
[2023-04-11] MEDS: IPRATROPIUM BR 0.02% INH SOLN 0.5 MG/2.5 ML VIAL INHALATION ×4 (02:20→19:48)
[2023-04-11] MEDS: polyethylene glycoL 3350 17 GM POWD.PACK PO (08:23)
[2023-04-11] MEDS: FLUTICASONE PROPIONATE 0.05% NA SPR 16 GM BTL (*BKC) 1 SPRAY NASAL (08:23)
[2023-04-11] MEDS: FERROUS SULFATE 325 MG TABLET DR PO ×2 (08:24→17:09)
[2023-04-11] MEDS: METOPROLOL SUCCINATE EXT REL 25 MG TABCR PO (08:24)
[2023-04-11] MEDS: MONTELUKAST SODIUM 10 MG TABLET PO (08:24)
[2023-04-11] MEDS: FUROSEMIDE 20 MG TABLET 60 MG PO ×2 (08:24→17:09)
[2023-04-11] MEDS: ASCORBIC ACID 500 MG TABLET PO (08:25)
[2023-04-11] MEDS: PANTOPRAZOLE 40 MG TABLET PO ×2 (08:25→17:09)
[2023-04-11] MEDS: ROSUVASTATIN 10 MG TABLET 40 MG PO (08:25)
[2023-04-11] MEDS: POTASSIUM CHLORIDE 20 MEQ ER TABLET 40 MEQ PO ×2 (08:25→17:09)
--- NOTE | 2023-04-11 08:53 | PM.IMPN ---
Progress Note: A&P Assessment and Plan (1) COPD exacerbation: Code(s): J44.1 - Chronic obstructive pulmonary disease with (acute) exacerbation Status: Acute (2) CHF (congestive heart failure): Qualifiers: Heart failure chronicity: chronic Heart failure type: unspecified Qualified Code(s): I50.9 - Heart failure, unspecified Code(s): I50.9 - Heart failure, unspecified Status: Chronic (3) Atrial fibrillation: Qualifiers: Atrial fibrillation type: paroxysmal Qualified Code(s): I48.0 - Paroxysmal atrial fibrillation Code(s): I48.91 - Unspecified atrial fibrillation Status: Chronic (4) Hyperlipemia: Qualifiers: Hyperlipidemia type: unspecified Qualified Code(s): E78.5 - Hyperlipidemia, unspecified Code(s): E78.5 - Hyperlipidemia, unspecified Status: Chronic (5) HTN (hypertension): Qualifiers: Hypertension type: unspecified Qualified Code(s): I10 - Essential (primary) hypertension Code(s): I10 - Essential (primary) hypertension Status: Chronic (6) History of GI bleed: Code(s): Z87.19 - Personal history of other diseases of the digestive system Status: Acute (7) Stage 3b chronic kidney disease: Code(s): N18.32 - Chronic kidney disease, stage 3b Status: Chronic (8) Iron deficiency anemia: Qualifiers: Iron deficiency anemia type: inadequate dietary iron intake Qualified Code(s): D50.8 - Other iron deficiency anemias Code(s): D50.9 - Iron deficiency anemia, unspecified Status: Chronic Plan (1) Chest pain: ?Qualifiers: ?Chest pain type:?unspecified? Qualified Code(s):?R07.9 - Chest pain, unspecified ?Code(s): R07.9 - Chest pain, unspecified ?Status:?Inactive ?Assessment and Plan: Patient came in with complaining of left chest pain, radiating to shoulder Troponin negative EKG shows AFib RVR, with nonspecific T-wave changes The chest pain may be related to anemia, but has risk of coronary artery disease Consult heddler for evaluation treatment Appreciate cardiology's consultation Certified Personal Chef considers she is not a candidate for an ischemia evaluation in my opinion since she is not a candidate for going to the cardiac catheterization lab under any circumstances given this significant recurrent problematic GI bleeding.? Clopidogrel should be stopped at this time as well in my opinion the hospitalists have already done that.? At this time heddler does not have any other specific cardiac recommendations to make (2) COPD exacerbation: ?Code(s): J44.1 - Chronic obstructive pulmonary disease with (acute) exacerbation ?Status:?Acute ?Assessment and Plan: Dyspnea is improving Discontinue solu-Medrol, Continue nebulizer treatment, and Singulair.? The patient is chronically on oxygen between 3 to 3.5 L.? She is currently on 3 L. (3) CHF (congestive heart failure): ?Qualifiers: ?Heart failure chronicity:?chronic??Heart failure type:?unspecified? Qualified Code(s):?I50.9 - Heart failure, unspecified ?Code(s): I50.9 - Heart failure, unspecified ?Status:?Chronic ?Assessment and Plan: Last echo was dated 10/28/2022.? Her EF was noted to be 54% moderate enlargement of right ventricle mild right ventricular hypokinesis.? Severe tricuspid regurgitation.? Aortic cusps appear moderately calcified.? Continue with daily Lasix.? Continue with metoprolol. (4) Atrial fibrillation: ?Qualifiers: ?Atrial fibrillation type:?paroxysmal? Qualified Code(s):?I48.0 - Paroxysmal atrial fibrillation ?Code(s): I48.91 - Unspecified atrial fibrillation ?Status:?Chronic ?Assessment and Plan: Patient has a history of AVM and had been anticoagulated in the past but she is currently not on anticoagulation.? Continue with metoprolol (5) Hyperlipemia: ?Qualifiers: ?Hyperlipidemia type:?unspeci
[2023-04-11] MEDS: MULTIVITAMINS THERAPEUTIC TAB (*BKC) 1 TABLET PO (09:37)
--- NOTE | 2023-04-11 10:10 | PM.PNCARD ---
Progress Note: A&P Assessment and Plan (1) Chest pain: Code(s): R07.9 - Chest pain, unspecified Status: Acute Assessment and Plan: Likely related to underlying anemia in the setting of obstructive CAD. She is currently asymptomatic and at this point, would recommend continuing conservative treatment and therapy given her severe anemia and active GI bleeding which would limit her ability to undergo angiogram/PCI at this point. Will bump up her metoprolol succinate to 50 mg p.o. daily because of elevated heart rate as well as because of CAD and presumed underlying ischemia (2) AVM (arteriovenous malformation): Code(s): Q27.30 - Arteriovenous malformation, site unspecified Status: Acute Assessment and Plan: Multiple AVMs noted. Continue evaluation per GI (3) Atrial fibrillation: Qualifiers: Atrial fibrillation type: paroxysmal Qualified Code(s): I48.0 - Paroxysmal atrial fibrillation Code(s): I48.91 - Unspecified atrial fibrillation Status: Chronic Assessment and Plan: Holding anticoagulation because of anemia and GI bleed (4) Anemia: Qualifiers: Anemia type: unspecified type Qualified Code(s): D64.9 - Anemia, unspecified Code(s): D64.9 - Anemia, unspecified Status: Acute Assessment and Plan: Marginally better with a hemoglobin of 8.0 Plan episode of chest pain that occurred on Thursday of this past week in the setting of severe anemia with microcytic indices. The patient appears to have be having chronic GI blood loss from small bowel AVMs that were noticed on capsule endoscopy I believe at [facility] recently. She for this reason has recently taken off of anticoagulation and aspirin therapy. She has never had a coronary angiogram but undoubtedly she has some coronary disease given her history of peripheral vascular disease atrial fibrillation and longstanding cigarette smoking. She certainly could be subject to having or her at risk for having ischemic chest pain the setting of severe anemia which was the case on Thursday when she arrived here. Her blood volume has been improved and she is now asymptomatic. She is not a candidate for an ischemia evaluation in my opinion since she is not a candidate for going to the cardiac catheterization lab under any circumstances given this significant recurrent problematic GI bleeding. Clopidogrel should be stopped at this time as well in my opinion the hospitalists have already done that. At this time I do not have any other specific cardiac recommendations to make. Please call me if you have any questions regarding this situation or this opinion Lawrence Moe MD [facility] Subjective Date/time seen: 04/11/23 10:10 Interval history: 73-year-old with atrial fibrillation, chest pain and anemia Date of service 04/11/2023: She feels okay today. Close to baseline but not quite there. No chest pain or shortness of breath Review of Systems Constitutional: Constitutional: Reports lethargy Eyes: Eyes: Reports no additional eye complaints ENT: Reports system reviewed and no additional complaints, except as documented Cardiovascular: Cardiovascular: Reports as per HPI, Reports chest pain and Reports dyspnea on exertion Respiratory: Respiratory: Reports dyspnea on exertion Gastrointestinal: Gastrointestinal: Reports melena Musculoskeletal: Musculoskeletal: Reports no additional musculoskeletal complaints Integumentary/Breasts: Skin/Breast: Reports system reviewed and no additional complaints, except as docu Endocrine: Endocrine: Reports no additional endocrine complaints Hematologic/Lymphatic: Hematologic/Lymphatic: Reports no additional hematologic/lymphatic complaints Allergic/Immunologic: Allergic/Immunologic: Reports no additional allergic/immunologic complaints Exam Narrative: Appears stated age Const: General: comfortable and no acut
[2023-04-11] MEDS: traMADol HCL (*CRX) 50 MG TABLET PO (22:13)
[2023-04-12] VITALS (20 sets, daily range): BP systolic 107–121; BP diastolic 61–76; PULSE 94–121; RESP 16–20; TEMP 36.6–36.7; O2SAT 96–100
[2023-04-12 01:58] LABS: IFOB Positive Control Positive; Immunochemical Fecal Occult Bl Negative (N)
[2023-04-12] MEDS: ALBUTEROL SULFATE NEB 2.5 MG/3 ML INH INHALATION ×4 (02:47→19:59)
[2023-04-12] MEDS: IPRATROPIUM BR 0.02% INH SOLN 0.5 MG/2.5 ML VIAL INHALATION ×4 (02:48→19:59)
[2023-04-12] MEDS: FLUTICASONE PROPIONATE 0.05% NA SPR 16 GM BTL (*BKC) 1 SPRAY NASAL (08:42)
[2023-04-12] MEDS: polyethylene glycoL 3350 17 GM POWD.PACK PO (08:42)
[2023-04-12] MEDS: FERROUS SULFATE 325 MG TABLET DR PO ×2 (08:43→17:18)
[2023-04-12] MEDS: FUROSEMIDE 20 MG TABLET 60 MG PO ×2 (08:43→17:18)
[2023-04-12] MEDS: METOPROLOL SUCCINATE EXT REL 50 MG TABCR PO (08:43)
[2023-04-12] MEDS: POTASSIUM CHLORIDE 20 MEQ ER TABLET 40 MEQ PO ×2 (08:43→17:18)
[2023-04-12] MEDS: PANTOPRAZOLE 40 MG TABLET PO ×2 (08:43→17:18)
[2023-04-12] MEDS: ASCORBIC ACID 500 MG TABLET PO (08:44)
[2023-04-12] MEDS: ROSUVASTATIN 10 MG TABLET 40 MG PO (08:44)
[2023-04-12] MEDS: MULTIVITAMINS THERAPEUTIC TAB (*BKC) 1 TABLET PO (08:44)
[2023-04-12] MEDS: MONTELUKAST SODIUM 10 MG TABLET PO (08:44)
--- NOTE | 2023-04-12 10:08 | PM.PNCARD ---
Progress Note: A&P Assessment and Plan (1) Chest pain: Code(s): R07.9 - Chest pain, unspecified Status: Acute Assessment and Plan: Likely related to underlying anemia in the setting of obstructive CAD. would recommend continuing conservative treatment and therapy given her severe anemia and active GI bleeding which would limit her ability to undergo angiogram/PCI at this point. Continue metoprolol succinate to 50 mg p.o. daily because of elevated heart rate as well as because of CAD and presumed underlying ischemia. (2) AVM (arteriovenous malformation): Code(s): Q27.30 - Arteriovenous malformation, site unspecified Status: Acute Assessment and Plan: Multiple AVMs noted. Continue evaluation per GI (3) Atrial fibrillation: Qualifiers: Atrial fibrillation type: paroxysmal Qualified Code(s): I48.0 - Paroxysmal atrial fibrillation Code(s): I48.91 - Unspecified atrial fibrillation Status: Chronic Assessment and Plan: Holding anticoagulation because of anemia and GI bleed. Heart rate today is mildly elevated but increase metoprolol dose yesterday. Continue current regimen for now (4) Anemia: Qualifiers: Anemia type: unspecified type Qualified Code(s): D64.9 - Anemia, unspecified Code(s): D64.9 - Anemia, unspecified Status: Acute Assessment and Plan: Marginally better with a hemoglobin of 8.0 at last check Subjective Date/time seen: 04/12/23 10:08 Interval history: 73-year-old with atrial fibrillation, chest pain and anemia Date of service 04/11/2023: She feels okay today. Close to baseline but not quite there. No chest pain or shortness of breath Date of service 04/12/2023: Has some indigestion symptoms but no chest pain or unusual shortness of breath Review of Systems Constitutional: Constitutional: Reports lethargy Eyes: Eyes: Reports no additional eye complaints ENT: Reports system reviewed and no additional complaints, except as documented Cardiovascular: Cardiovascular: Reports as per HPI, Reports chest pain and Reports dyspnea on exertion Respiratory: Respiratory: Reports dyspnea on exertion Gastrointestinal: Gastrointestinal: Reports melena Musculoskeletal: Musculoskeletal: Reports no additional musculoskeletal complaints Integumentary/Breasts: Skin/Breast: Reports system reviewed and no additional complaints, except as docu Endocrine: Endocrine: Reports no additional endocrine complaints Hematologic/Lymphatic: Hematologic/Lymphatic: Reports no additional hematologic/lymphatic complaints Allergic/Immunologic: Allergic/Immunologic: Reports no additional allergic/immunologic complaints Exam Narrative: Appears stated age Const: General: comfortable and no acute distress Other: chronically ill-appearing woman appearing a bit older than her stated age no distress of any kind at this time HENMT: Mouth: Yes moist mucous membranes Eyes: Sclera: sclerae normal Neck: Neck: supple and no JVD Other: soft carotid bruits are noted bilateral Resp: Effort & Inspection: normal respiratory effort Auscultation: diminished lung sounds Other: breath sounds are essentially clear but significantly diminished throughout both lung spivey Cardio: Rate: regular rate Rhythm: abnormal rhythm irregularly irregular GI: Auscultation: normal bowel sounds Skin: General skin exam: normal color Neuro: Sensory Exam: normal sensation Other: alert and oriented x3 Extrem: Other: distal pulses are difficult to palpate extremities are warm and well perfused and without edema Psych: Mental Status: mental status grossly normal Objective Data Vital Signs Vital Signs: Vital Signs - 24 hr 04/11/23 12:00 04/11/23 13:44 04/11/23 13:58 Temperature Pulse Rate 108 H 104 H 99 Respiratory Rate 18 18 Blood Pressure Pulse Oximetry Oxygen Delivery Oxygen Johnson
--- NOTE | 2023-04-12 12:25 | PM.IMPN ---
Progress Note: A&P Assessment and Plan (1) COPD exacerbation: Code(s): J44.1 - Chronic obstructive pulmonary disease with (acute) exacerbation Status: Acute (2) CHF (congestive heart failure): Qualifiers: Heart failure type: unspecified Heart failure chronicity: chronic Qualified Code(s): I50.9 - Heart failure, unspecified Code(s): I50.9 - Heart failure, unspecified Status: Chronic (3) Atrial fibrillation: Qualifiers: Atrial fibrillation type: paroxysmal Qualified Code(s): I48.0 - Paroxysmal atrial fibrillation Code(s): I48.91 - Unspecified atrial fibrillation Status: Chronic (4) Hyperlipemia: Qualifiers: Hyperlipidemia type: unspecified Qualified Code(s): E78.5 - Hyperlipidemia, unspecified Code(s): E78.5 - Hyperlipidemia, unspecified Status: Chronic (5) HTN (hypertension): Qualifiers: Hypertension type: unspecified Qualified Code(s): I10 - Essential (primary) hypertension Code(s): I10 - Essential (primary) hypertension Status: Chronic (6) History of GI bleed: Code(s): Z87.19 - Personal history of other diseases of the digestive system Status: Acute (7) Stage 3b chronic kidney disease: Code(s): N18.32 - Chronic kidney disease, stage 3b Status: Chronic (8) Iron deficiency anemia: Qualifiers: Iron deficiency anemia type: inadequate dietary iron intake Qualified Code(s): D50.8 - Other iron deficiency anemias Code(s): D50.9 - Iron deficiency anemia, unspecified Status: Chronic Plan (1) Chest pain: ?Qualifiers: ?Chest pain type:?unspecified? Qualified Code(s):?R07.9 - Chest pain, unspecified ?Code(s): R07.9 - Chest pain, unspecified ?Status:?Inactive ?Assessment and Plan: Patient came in with complaining of left chest pain, radiating to shoulder Troponin negative EKG shows AFib RVR, with nonspecific T-wave changes The chest pain may be related to anemia, but has risk of coronary artery disease Consult websphere administrator for evaluation treatment Appreciate cardiology's consultation Senior Analyst Developer considers she is not a candidate for an ischemia evaluation in my opinion since she is not a candidate for going to the cardiac catheterization lab under any circumstances given this significant recurrent problematic GI bleeding.? Clopidogrel should be stopped at this time as well in my opinion the hospitalists have already done that.? At this time websphere administrator does not have any other specific cardiac recommendations to make (2) COPD exacerbation: ?Code(s): J44.1 - Chronic obstructive pulmonary disease with (acute) exacerbation ?Status:?Acute ?Assessment and Plan: Dyspnea is improving Discontinue solu-Medrol, Continue nebulizer treatment, and Singulair.? The patient is chronically on oxygen between 3 to 3.5 L.? She is currently on 3 L. (3) CHF (congestive heart failure): ?Qualifiers: ?Heart failure chronicity:?chronic??Heart failure type:?unspecified? Qualified Code(s):?I50.9 - Heart failure, unspecified ?Code(s): I50.9 - Heart failure, unspecified ?Status:?Chronic ?Assessment and Plan: Last echo was dated 10/28/2022.? Her EF was noted to be 54% moderate enlargement of right ventricle mild right ventricular hypokinesis.? Severe tricuspid regurgitation.? Aortic cusps appear moderately calcified.? Continue with daily Lasix.? Continue with metoprolol. (4) Atrial fibrillation: ?Qualifiers: ?Atrial fibrillation type:?paroxysmal? Qualified Code(s):?I48.0 - Paroxysmal atrial fibrillation ?Code(s): I48.91 - Unspecified atrial fibrillation ?Status:?Chronic ?Assessment and Plan: Patient has a history of AVM and had been anticoagulated in the past but she is currently not on anticoagulation.? Continue with metoprolol 50 mg daily p.o. Appreciate websphere administrator consultation (5) Hyperlipemia:
[2023-04-12] MEDS: traMADol HCL (*CRX) 50 MG TABLET PO ×2 (14:31→21:10)
[2023-04-13] VITALS (23 sets, daily range): BP systolic 100–118; BP diastolic 51–67; PULSE 69–112; RESP 18–20; TEMP 36.5–36.6; O2SAT 91–99
[2023-04-13] MEDS: ALBUTEROL SULFATE NEB 2.5 MG/3 ML INH INHALATION ×4 (02:02→21:03)
[2023-04-13] MEDS: IPRATROPIUM BR 0.02% INH SOLN 0.5 MG/2.5 ML VIAL INHALATION ×4 (02:02→21:03)
[2023-04-13] MEDS: POTASSIUM CHLORIDE 20 MEQ ER TABLET 40 MEQ PO ×2 (09:29→17:53)
[2023-04-13] MEDS: MULTIVITAMINS THERAPEUTIC TAB (*BKC) 1 TABLET PO (09:31)
[2023-04-13] MEDS: FERROUS SULFATE 325 MG TABLET DR PO ×2 (09:31→17:53)
[2023-04-13] MEDS: FLUTICASONE PROPIONATE 0.05% NA SPR 16 GM BTL (*BKC) 1 SPRAY NASAL (09:31)
[2023-04-13] MEDS: METOPROLOL SUCCINATE EXT REL 50 MG TABCR PO (09:31)
[2023-04-13] MEDS: ASCORBIC ACID 500 MG TABLET PO (09:31)
[2023-04-13] MEDS: MONTELUKAST SODIUM 10 MG TABLET PO (09:31)
[2023-04-13] MEDS: PANTOPRAZOLE 40 MG TABLET PO ×2 (09:32→17:53)
[2023-04-13] MEDS: ROSUVASTATIN 10 MG TABLET 40 MG PO (09:32)
[2023-04-13] MEDS: FUROSEMIDE 20 MG TABLET 60 MG PO ×2 (11:33→17:53)
--- NOTE | 2023-04-13 11:42 | PC.NURSE ---
Lasix given late due to pyxis not being stocked. Pharmacy called and tubed up medication to publications writer.
--- NOTE | 2023-04-13 13:41 | PM.IMPN ---
Progress Note: A&P Assessment and Plan (1) COPD exacerbation: Code(s): J44.1 - Chronic obstructive pulmonary disease with (acute) exacerbation Status: Acute (2) CHF (congestive heart failure): Qualifiers: Heart failure type: unspecified Heart failure chronicity: chronic Qualified Code(s): I50.9 - Heart failure, unspecified Code(s): I50.9 - Heart failure, unspecified Status: Chronic (3) Atrial fibrillation: Qualifiers: Atrial fibrillation type: paroxysmal Qualified Code(s): I48.0 - Paroxysmal atrial fibrillation Code(s): I48.91 - Unspecified atrial fibrillation Status: Chronic (4) Hyperlipemia: Qualifiers: Hyperlipidemia type: unspecified Qualified Code(s): E78.5 - Hyperlipidemia, unspecified Code(s): E78.5 - Hyperlipidemia, unspecified Status: Chronic (5) HTN (hypertension): Qualifiers: Hypertension type: unspecified Qualified Code(s): I10 - Essential (primary) hypertension Code(s): I10 - Essential (primary) hypertension Status: Chronic (6) History of GI bleed: Code(s): Z87.19 - Personal history of other diseases of the digestive system Status: Acute (7) Stage 3b chronic kidney disease: Code(s): N18.32 - Chronic kidney disease, stage 3b Status: Chronic (8) Iron deficiency anemia: Qualifiers: Iron deficiency anemia type: inadequate dietary iron intake Qualified Code(s): D50.8 - Other iron deficiency anemias Code(s): D50.9 - Iron deficiency anemia, unspecified Status: Chronic Plan (1) Chest pain: ?Qualifiers: ?Chest pain type:?unspecified? Qualified Code(s):?R07.9 - Chest pain, unspecified ?Code(s): R07.9 - Chest pain, unspecified ?Status:?Inactive ?Assessment and Plan: Patient came in with complaining of left chest pain, radiating to shoulder Troponin negative EKG shows AFib RVR, with nonspecific T-wave changes The chest pain may be related to anemia, but has risk of coronary artery disease Consult manager family for evaluation treatment Appreciate cardiology's consultation Forensic Social Worker considers she is not a candidate for an ischemia evaluation in my opinion since she is not a candidate for going to the cardiac catheterization lab under any circumstances given this significant recurrent problematic GI bleeding.? Clopidogrel should be stopped at this time as well in my opinion the hospitalists have already done that.? At this time manager family does not have any other specific cardiac recommendations to make (2) COPD exacerbation: ?Code(s): J44.1 - Chronic obstructive pulmonary disease with (acute) exacerbation ?Status:?Acute ?Assessment and Plan: Dyspnea is improving Discontinue solu-Medrol, Continue nebulizer treatment, and Singulair.? The patient is chronically on oxygen between 3 to 3.5 L.? She is currently on 3 L. (3) CHF (congestive heart failure): ?Qualifiers: ?Heart failure chronicity:?chronic??Heart failure type:?unspecified? Qualified Code(s):?I50.9 - Heart failure, unspecified ?Code(s): I50.9 - Heart failure, unspecified ?Status:?Chronic ?Assessment and Plan: Last echo was dated 10/28/2022.? Her EF was noted to be 54% moderate enlargement of right ventricle mild right ventricular hypokinesis.? Severe tricuspid regurgitation.? Aortic cusps appear moderately calcified.? Continue with daily Lasix.? Continue with metoprolol. (4) Atrial fibrillation: ?Qualifiers: ?Atrial fibrillation type:?paroxysmal? Qualified Code(s):?I48.0 - Paroxysmal atrial fibrillation ?Code(s): I48.91 - Unspecified atrial fibrillation ?Status:?Chronic ?Assessment and Plan: Patient has a history of AVM and had been anticoagulated in the past but she is currently not on anticoagulation.? Continue with metoprolol 50 mg daily p.o. Appreciate manager family consultation (5) Hyperlipemia:
[2023-04-13] MEDS: traMADol HCL (*CRX) 50 MG TABLET PO (17:53)
[2023-04-14] VITALS (15 sets, daily range): BP systolic 107–117; BP diastolic 54–79; PULSE 77–102; RESP 16–18; TEMP 37.1–37.2; O2SAT 93–99
[2023-04-14] MEDS: ALBUTEROL SULFATE NEB 2.5 MG/3 ML INH INHALATION ×3 (03:07→14:16)
[2023-04-14] MEDS: IPRATROPIUM BR 0.02% INH SOLN 0.5 MG/2.5 ML VIAL INHALATION ×3 (03:09→14:16)
[2023-04-14] MEDS: FLUTICASONE PROPIONATE 0.05% NA SPR 16 GM BTL (*BKC) 1 SPRAY NASAL (08:35)
[2023-04-14] MEDS: PANTOPRAZOLE 40 MG TABLET PO (08:38)
[2023-04-14] MEDS: ASCORBIC ACID 500 MG TABLET PO (08:38)
[2023-04-14] MEDS: METOPROLOL SUCCINATE EXT REL 50 MG TABCR PO (08:38)
[2023-04-14] MEDS: MONTELUKAST SODIUM 10 MG TABLET PO (08:38)
[2023-04-14] MEDS: FUROSEMIDE 20 MG TABLET 60 MG PO (08:38)
[2023-04-14] MEDS: POTASSIUM CHLORIDE 20 MEQ ER TABLET 40 MEQ PO (08:38)
[2023-04-14] MEDS: FERROUS SULFATE 325 MG TABLET DR PO (08:38)
[2023-04-14] MEDS: MULTIVITAMINS THERAPEUTIC TAB (*BKC) 1 TABLET PO (08:38)
[2023-04-14] MEDS: ROSUVASTATIN 10 MG TABLET 40 MG PO (08:39)
--- NOTE | 2023-04-14 15:10 | PM.DS ---
DS: Admitting Diagnosis Discharge Date Today Admitting Diagnosis (1) COPD exacerbation: ?Code(s): J44.1 - Chronic obstructive pulmonary disease with (acute) exacerbation ?Status:?Acute (2) CHF (congestive heart failure): ?Qualifiers: ?Heart failure type:?unspecified??Heart failure chronicity:?chronic? Qualified Code(s):?I50.9 - Heart failure, unspecified ?Code(s): I50.9 - Heart failure, unspecified ?Status:?Chronic (3) Atrial fibrillation: ?Qualifiers: ?Atrial fibrillation type:?paroxysmal? Qualified Code(s):?I48.0 - Paroxysmal atrial fibrillation ?Code(s): I48.91 - Unspecified atrial fibrillation ?Status:?Chronic (4) Hyperlipemia: ?Qualifiers: ?Hyperlipidemia type:?unspecified? Qualified Code(s):?E78.5 - Hyperlipidemia, unspecified ?Code(s): E78.5 - Hyperlipidemia, unspecified ?Status:?Chronic (5) HTN (hypertension): ?Qualifiers: ?Hypertension type:?unspecified? Qualified Code(s):?I10 - Essential (primary) hypertension ?Code(s): I10 - Essential (primary) hypertension ?Status:?Chronic (6) History of GI bleed: ?Code(s): Z87.19 - Personal history of other diseases of the digestive system ?Status:?Acute (7) Stage 3b chronic kidney disease: ?Code(s): N18.32 - Chronic kidney disease, stage 3b ?Status:?Chronic (8) Iron deficiency anemia: ?Qualifiers: ?Iron deficiency anemia type:?inadequate dietary iron intake? Qualified Code(s):?D50.8 - Other iron deficiency anemias ?Code(s): D50.9 - Iron deficiency anemia, unspecified ?Status:?Chronic DS: Discharge Diagnosis Discharge Diagnosis (1) COPD exacerbation: Code(s): J44.1 - Chronic obstructive pulmonary disease with (acute) exacerbation Status: Acute (2) CHF (congestive heart failure): Qualifiers: Heart failure chronicity: chronic Heart failure type: unspecified Qualified Code(s): I50.9 - Heart failure, unspecified Code(s): I50.9 - Heart failure, unspecified Status: Chronic (3) Atrial fibrillation: Qualifiers: Atrial fibrillation type: paroxysmal Qualified Code(s): I48.0 - Paroxysmal atrial fibrillation Code(s): I48.91 - Unspecified atrial fibrillation Status: Chronic (4) Hyperlipemia: Qualifiers: Hyperlipidemia type: unspecified Qualified Code(s): E78.5 - Hyperlipidemia, unspecified Code(s): E78.5 - Hyperlipidemia, unspecified Status: Chronic (5) HTN (hypertension): Qualifiers: Hypertension type: unspecified Qualified Code(s): I10 - Essential (primary) hypertension Code(s): I10 - Essential (primary) hypertension Status: Chronic (6) History of GI bleed: Code(s): Z87.19 - Personal history of other diseases of the digestive system Status: Acute (7) Stage 3b chronic kidney disease: Code(s): N18.32 - Chronic kidney disease, stage 3b Status: Chronic (8) Iron deficiency anemia: Qualifiers: Iron deficiency anemia type: inadequate dietary iron intake Qualified Code(s): D50.8 - Other iron deficiency anemias Code(s): D50.9 - Iron deficiency anemia, unspecified Status: Chronic DS: Summary Hospital Course Reason for hospitalization: Chest pain Hospital Course: Per H&P, this is a 73-year-old female patient who has a history of hypertension, COPD, congestive heart failure, atrial fibrillation with inability to take anticoagulation, chronic kidney disease, and chronic hypoxia on oxygen at 3 to 3.5 L. the patient stated that she had left-sided chest pain that was just below the left breast and radiated to her left shoulder.? The patient is tender to touch in that area.? The pain was unprovoked.? She denied any fever chills no nausea no vomiting.? She developed weakness and shortness of breath during this episode.? She would has [facility] and rated her pain 10/10.? The patie
== END 2023-04-14 16:25 | disposition home health service (06) | DRG 191 ==
LOC: ANHIMU 04-09 12:07 → ANH3MED 04-10 21:54
PROVIDERS: Internal Medicine; Nurse Practitioner; Admitting Provider Hospitalist; PCP Family Medicine; Visit Provider Hospitalist
DX: J44.1 Chronic obstructive pulmonary disease with (acute) exacerbation (principal); I13.0 Hypertensive heart and chronic kidney disease with heart failure and stage 1 through stage 4 chronic kidney disease, or unspecified chronic kidney disease; Q27.30 Arteriovenous malformation, site unspecified; I50.32 Chronic diastolic (congestive) heart failure; K92.2 Gastrointestinal hemorrhage, unspecified; D50.9 Iron deficiency anemia, unspecified; E78.5 Hyperlipidemia, unspecified; G47.30 Sleep apnea, unspecified; I07.1 Rheumatic tricuspid insufficiency; I25.10 Atherosclerotic heart disease of native coronary artery without angina pectoris; I48.0 Paroxysmal atrial fibrillation; I73.9 Peripheral vascular disease, unspecified; N18.32 Chronic kidney disease, stage 3b; Z99.81 Dependence on supplemental oxygen; Z87.19 Personal history of other diseases of the digestive system; Z90.49 Acquired absence of other specified parts of digestive tract; Z90.710 Acquired absence of both cervix and uterus; Z79.02 Long term (current) use of antithrombotics/antiplatelets
CPT/HCPCS: 36415; 36430; 74176; 78580; 80048; 80053; 82274; 82728; 83540; 83550; 83605; 83735; 84443; 84484; 85014; 85018; 85025; 85027; 86850; 86900; 86901; 86923; 93970; 94640; 97110; 97161; 97165; 97530; 97535; A9270; A9540; J1756; J2930; J7050; P9016

== ENCOUNTER 2023-04-20 11:25 | Outpatient (CLI) | payer MEDICARE, SELFPAY ==
[2023-04-20 11:37] LABS: Basophils Absolute Auto 0.05 K/mm3 (0.00-0.10); Basophils Percent Auto 0.6 % (0.0-1.0); Eosinophils Absolute Auto 0.25 K/mm3 (0.02-0.50); Eosinophils Percent Auto 3.2 % (1.0-6.0); Hematocrit 32.6 % (35.0-42.0); Immature Granulocyte Absolute 0.03 K/mm3 (0.00-0.00); Immature Granulocyte Percent A 0.4 % (0.0-0.0); Lymphocytes Absolute Auto 1.56 K/mm3 (1.10-4.50); Lymphocytes Percent Auto 20.1 % (18.0-42.0); Mean Corpuscular HGB Conc 27.6 g/dL (32.0-36.0); Mean Corpuscular Hemoglobin 22.4 pg (27.0-31.0); Mean Corpuscular Volume 81.3 fL (78.0-102.0); Mean Platelet Volume 9.8 fl (9.2-11.8); Monocytes Absolute Auto 0.73 K/mm3 (0.10-0.90); Monocytes Percent Auto 9.4 % (2.0-11.0); Neutrophils Absolute Auto 5.1 K/mm3 (1.7-7.2); Neutrophils Percent Auto 66.3 % (50.0-70.0); Platelet Count Result 253 K/mm3 (150-420); Red Blood Count 4.01 M/mm3 (4.20-5.40); Red Cell Distribution Width 24.8 % (11.6-14.4); White Blood Count 7.8 K/mm3 (4.8-10.8)
[2023-04-20 12:07] LABS: Alanine Aminotransferase 32 U/L (14-59); Albumin Level 3.3 g/dL (3.4-5.0); Alkaline Phosphatase 224 U/L (46-116); Anion Gap 5 mmol/L (8-16); Aspartate Amino Transferase 10 U/L (15-37); Blood Urea Nitrogen 12 mg/dL (7-18); Calcium 9.2 mg/dL (8.5-10.1); Carbon Dioxide 36 mmol/L (21-32); Chloride 102 mmol/L (98-108); Estimated Glomerular Filt Rate 39; Glucose 101 mg/dL (70-99); Osmolality Calculated 295 mOsm/kg (285-295); Potassium 4.6 mmol/L (3.5-5.1); Sodium 143 mmol/L (136-145); Total Protein 6.4 g/dL (6.4-8.2)
== END 2023-04-20 11:26 | disposition home or self-care (01) ==
LOC: CHSLAB 11:26
PROVIDERS: PCP Family Medicine; Visit Provider Family Medicine
DX: I50.9 Heart failure, unspecified (principal)
CPT/HCPCS: 36415; 80053; 85025

== ENCOUNTER 2023-05-13 10:08 | Emergency (ER) | payer MEDICARE, SELFPAY ==
--- NOTE | ~2023-05-13 | XR_ITS ---
EXAMINATION: XR chest 1V portable DATE: 05/13/2023 10:38 INDICATION: Shortness of breath. TECHNIQUE: A single frontal view of the chest was obtained. COMPARISON: Chest 2 views 04/08/2023, CT abdomen and pelvis 04/09/2013 FINDINGS: There is mild atelectasis versus scarring in the lower lung zones. No pleural effusion or p neumothorax. Cardiomegaly is noted. There are old healed bilateral rib fractures. IMPRESSION: 1. Stable mild atelectasis versus scarring in the lower lung zones. 2. Cardiomegaly. Reviewed, dictated and finalized at location A.
--- NOTE | 2023-05-13 10:14 | ECG_ITS ---
Measurements Intervals [place] Rate: 112 P: ME: 0 QRS: -26 QRSD: 93 T: 70 QT: 321 QTc: 440 Interpretive Statements ATRIAL FIBRILLATION WITH RAPID VENTRICULAR RESPONSE BORDERLINE LEFT AXIS DEVIATION [QRS AXIS < -20] POSSIBLE RIGHT VENTRICULAR CONDUCTION DELAY [RSR (QR) IN V1/V2] ABNORMAL RHYTHM ECG COMPARED TO ECG 04/08/2023 10:22:23 NO SIGNIFICANT CHANGES Electronically Signed On 05-13-2023 14:04:40 CDT by Mae Mattson M.D.
--- NOTE | 2023-05-13 10:14 | ED.ARRPALP ---
HPI - Arrhythmia/Palpitations General Chief Complaint: Arrhythmia/Palpitations Stated Complaint: Afib/RVR Time Seen by Provider: 05/13/23 10:10 Source: patient Mode of arrival: ambulatory Limitations: no limitations History of Present Illness HPI narrative: 73-year-old female ex-smoker with a history of hypertension, COPD, LOUIE on home oxygen 3 liters/minute, Diastolic CHF, recurrent chest pain, atrial fibrillation not on anticoagulation secondary to small intestinal AVMs, recurrent GI bleeding with chronic anemia, CKD with baseline creatinine of 1.9, dyslipidemia, gout went up primary care physician for -- generalized weakness -- increased leg swelling -- patient was noted to be in atrial fibrillation with a rapid ventricular rate of 120. The patient denies any chest pain or shortness of breath. MD complaint: palpitations Onset (ago): day(s) Duration: constant Severity: mild Arrhythmia history: atrial fibrillation Associated symptoms: other ( bilateral leg swelling) Related Data Home Medications Medication Instructions Recorded Confirmed rosuvastatin 40 mg tablet (Crestor) 40 mg PO DAILY 08/15/19 05/13/23 ascorbate calcium (vitamin C) 500 500 mg PO DAILY 11/17/22 05/13/23 mg tablet multivitamin 1 tablet PO DAILY 11/17/22 05/13/23 pantoprazole 40 mg tablet,delayed 40 mg PO BID 11/17/22 05/13/23 release potassium chloride 20 mEq 40 meq PO BID 11/17/22 05/13/23 tablet,extended release furosemide 20 mg tablet 60 mg PO BID 01/20/23 05/13/23 metoprolol succinate 25 mg capsule 25 mg PO DAILY 01/26/23 05/13/23 sprinkle, ext. release 24 hr alprazolam 0.25 mg tablet 0.25 mg PO QID PRN Anxiety 04/08/23 05/13/23 montelukast 10 mg tablet 10 mg PO DAILY 04/08/23 05/13/23 oxycodone 5 mg tablet 5 mg PO Q8H PRN 7-10 pain 04/08/23 05/13/23 tiotropium bromide 2.5 2 inh inhalation QAM 04/08/23 05/13/23 mcg/actuation mist for inhalation Allergies Allergy/AdvReac Type Severity Reaction Status Date / Time budesonide Allergy Severe Swelling Verified 05/13/23 10:18 [From [facility]] of Lip/Tongue/Throat codeine Allergy Severe Rash Verified 05/13/23 10:18 formoterol Allergy Severe Swelling Verified 05/13/23 10:18 [From in[facility]q] of Lip/Tongue/Throat glycopyrrolate Allergy Severe Swelling Verified 05/13/23 10:18 [From in[facility]q] of Lip/Tongue/Throat iron Allergy Intermediate Abdominal Verified 05/13/23 10:18 Pain Review of Systems Review of Systems: All systems reviewed & are unremarkable except as noted in HPI and below Constitutional: Constitutional: Reports as per HPI and Reports no additional constitutional complaints Eyes: Eyes: Reports as per HPI and Reports no additional eye complaints ENT: Reports system reviewed and no additional complaints, except as documented and Reports as per HPI Cardiovascular: Cardiovascular: Reports as per HPI and Reports no additional cardiovascular complaints Respiratory: Respiratory: Reports as per HPI, Reports no additional respiratory complaints, Reports cough and Reports dyspnea Gastrointestinal: Gastrointestinal: Reports as per HPI and Reports no additional gastrointestinal complaints Genitourinary: Genitourinary: Reports no additional female genitourinary complaints Musculoskeletal: Musculoskeletal: Reports no additional musculoskeletal complaints Integumentary/Breasts: Skin/Breast: Reports system reviewed and no additional complaints, except as docu and Reports as per HPI Neurologic: Reports system reviewed and no additional complaints, except as documented and Reports as per HPI Psychiatric: Psychiatric: Reports no additional psychiatric complaints and Reports as per HPI Endocrine: Endocrine: Reports no additional endocrine complaints and Reports as per HPI Hematologic/Lymphatic: Hematologic/Lymphatic: Reports no additional hematologic/lymphatic complaints and Reports as per HPI Allergic/Immunologic: Allergic/Immu
[2023-05-13 10:15] VITALS: BP 107/71; PULSE 111; RESP 22; TEMP 36.6; O2SAT 96
[2023-05-13 10:20] VITALS: PULSE 122
[2023-05-13 10:33] LABS: Basophils Absolute Auto 0.05 K/mm3 (0.00-0.10); Basophils Percent Auto 0.5 % (0.0-1.0); Eosinophils Absolute Auto 0.02 K/mm3 (0.02-0.50); Eosinophils Percent Auto 0.2 % (1.0-6.0); Hematocrit 32.1 % (35.0-42.0); Hemoglobin 8.8 g/dL (11.7-13.8); Immature Granulocyte Absolute 0.05 K/mm3 (0.00-0.00); Immature Granulocyte Percent A 0.5 % (0.0-0.0); Lymphocytes Percent Auto 17.1 % (18.0-42.0); Mean Corpuscular HGB Conc 27.4 g/dL (32.0-36.0); Mean Corpuscular Hemoglobin 22.7 pg (27.0-31.0); Mean Corpuscular Volume 82.7 fL (78.0-102.0); Mean Platelet Volume 9.8 fl (9.2-11.8); Monocytes Absolute Auto 0.97 K/mm3 (0.10-0.90); Monocytes Percent Auto 10.4 % (2.0-11.0); Neutrophils Absolute Auto 6.7 K/mm3 (1.7-7.2); Neutrophils Percent Auto 71.3 % (50.0-70.0); Platelet Count Result 282 K/mm3 (150-420); Red Blood Count 3.88 M/mm3 (4.20-5.40); Red Cell Distribution Width 23.9 % (11.6-14.4); White Blood Count 9.3 K/mm3 (4.8-10.8)
[2023-05-13] MEDS: METOPROLOL TARTRATE INJ 5 MG/5 ML VIAL 2.5 MG IV PUSH (10:44)
[2023-05-13 10:54] LABS: Lactic Acid Reflex 1.1 mmol/L (0.4-2.0)
[2023-05-13 10:57] LABS: Alanine Aminotransferase 14 U/L (14-59); Albumin Level 3.5 g/dL (3.4-5.0); Alkaline Phosphatase 241 U/L (46-116); Anion Gap 6 mmol/L (8-16); Aspartate Amino Transferase 10 U/L (15-37); Bilirubin,Total 1.1 mg/dL (0.00-1.00); Blood Urea Nitrogen 16 mg/dL (7-18); Calcium 9.5 mg/dL (8.5-10.1); Carbon Dioxide 36 mmol/L (21-32); Chloride 98 mmol/L (98-108); Estimated CRCL calculation 26 ml/min; Estimated Glomerular Filt Rate 34; Glucose 95 mg/dL (70-99); Lipase 22 U/L (16-77); NT Pro B Type Natriuretic Pept 13601 pg/mL (0-125); Osmolality Calculated 291 mOsm/kg (285-295); Potassium 4.9 mmol/L (3.5-5.1); Sodium 140 mmol/L (136-145); Thyroid Stimulating Hormone 1.31 uIU/mL (0.36-3.74); Total Protein 6.9 g/dL (6.4-8.2); Troponin I 25.9 ng/L (0.00-60.4)
[2023-05-13 11:03] LABS: INR 1.1; Prothrombin Time 12.2 Seconds (9.50-12.10)
[2023-05-13 11:17] LABS: Influenza A QL RT-PCR Negative (Negative); Influenza B QL RT-PCR Negative (Negative); SARS-CoV-2 RNA PCR Negative (Negative)
[2023-05-13 11:19] LABS: RSV RNA, RT-PCR Negative (Negative)
[2023-05-13 12:40] VITALS: BP 110/83; PULSE 100; PULSE 118; RESP 20; TEMP 37; O2SAT 100
== END 2023-05-13 12:45 | disposition home or self-care (01) ==
PROVIDERS: Emergency Provider Internal Medicine Critical Care Medicine; PCP Family Medicine
DX: I48.91 Unspecified atrial fibrillation (principal); I13.0 Hypertensive heart and chronic kidney disease with heart failure and stage 1 through stage 4 chronic kidney disease, or unspecified chronic kidney disease; I50.30 Unspecified diastolic (congestive) heart failure; N18.30 Chronic kidney disease, stage 3 unspecified; J44.9 Chronic obstructive pulmonary disease, unspecified; Z99.81 Dependence on supplemental oxygen; Z79.891 Long term (current) use of opiate analgesic; Z87.891 Personal history of nicotine dependence; Z20.822 Contact with and (suspected) exposure to COVID-19
CPT/HCPCS: 36415; 71045; 80053; 83605; 83690; 83880; 84443; 84484; 84550; 85025; 85610; 85730; 87637; 93005; 96374; 99284

== ENCOUNTER 2023-05-27 12:40 | Outpatient (CLI) | payer MEDICARE, SELFPAY ==
[2023-05-27 14:12] VITALS: BP 109/60; PULSE 92; RESP 16; TEMP 36.6; O2SAT 97
[2023-05-27 14:13] VITALS: BMI 24.0
[2023-05-27] MEDS: FUROSEMIDE INJ 40 MG/4 ML VIAL IV PUSH (14:14)
--- NOTE | 2023-05-27 14:15 | PC.NURSE ---
Patient here for 1 x order for IV Lasix 40 mg. Education given. No concerns voiced. IVP Lasix administered see MAR. Tolerated well. Observed and dc to home per wc/ with .
[2023-05-27 14:16] VITALS: BP 99/58; PULSE 88; RESP 16; O2SAT 98
== END 2023-05-27 12:41 | disposition home or self-care (01) ==
LOC: CHSTREATRM 12:44
PROVIDERS: PCP Family Medicine; Visit Provider Family Medicine
DX: I50.9 Heart failure, unspecified (principal)
CPT/HCPCS: 96374; J1940

== ENCOUNTER 2023-05-29 11:32 | Inpatient (IN) | payer MEDICARE, SELFPAY ==
[2023-05-29] VITALS (27 sets, daily range): BP systolic 104–122; BP diastolic 63–94; PULSE 78–121; RESP 16–24; TEMP 35.9–36.9; O2SAT 93–100; BMI 27.3
--- NOTE | ~2023-05-29 | XR_ITS ---
EXAMINATION: XR chest 2V DATE: 05/29/2023 12:18 INDICATION: Shortness of breath TECHNIQUE: PA and lateral views of the chest are obtained. COMPARISON: 05/13/2020 FINDINGS: Cardiomegaly is noted. The lungs are free of acute opacities. No pleural effusion or pneumo thorax. There are healed bilateral rib fractures. There is moderate thoracic spondylosis. IMPRESSION: 1. Cardiomegaly. Reviewed, dictated and finalized at location B. IMPRESSION: 1. Cardiomegaly.
--- NOTE | 2023-05-29 11:42 | ECG_ITS ---
Measurements Intervals [place] Rate: 114 P: GA: 0 QRS: 157 QRSD: 93 T: -19 QT: 329 QTc: 454 Interpretive Statements ATRIAL FIBRILLATION WITH RAPID VENTRICULAR RESPONSE LEFT POSTERIOR FASCICULAR BLOCK CANNOT RULE OUT SEPTAL INFARCT, AGE INDETERMINATE BORDERLINE ST-T WAVE ABNORMALITY- INFERIOR LEADS ABNORMAL ECG COMPARED TO ECG 05/13/2023 10:19:03 LEFT POSTERIOR FASCICULAR BLOCK NOW PRESENT Electronically Signed On 05-29-2023 11:54:19 CDT by Babar Saldivar D.O.
--- NOTE | 2023-05-29 11:54 | ED.WEAKNESS ---
HPI - Weakness General Chief complaint: Weakness Stated complaint: CHF Time Seen by Provider: 05/29/23 11:41 Source: patient, family and RN notes reviewed Mode of arrival: ambulatory Limitations: no limitations History of Present Illness HPI Narrative: patient is a 73-year-old female who was seeing the primary doctor today and found to have fluid overload at the office. She was sent to the ER for further workup and evaluation and likely admission. She is having lower extremity edema and weakness. No chest pain. patient is a poor historian. It appears she is not on a blood thinner for her AFib and we will inquire about this with her primary doctor. She was recently taken off 5 medicines and started on Lasix and digoxin which she has not started at this time yet. patient is on 3.5 L of nasal cannula oxygen chronically. She has COPD. MD Complaint: generalized weakness Onset (ago): day(s) Duration: constant Location: generalized Migration: none Severity: mild Severity scale (1-10): 3 Relieving factors: none Exacerbating factors: other ( Patient was unable to fill her prescriptions for the Lasix and digoxin recently) Context: new medication Associated symptoms: shortness of breath Related Data Home Medications Medication Instructions Recorded Confirmed rosuvastatin 40 mg tablet (Crestor) 40 mg PO DAILY 08/15/19 05/29/23 ascorbate calcium (vitamin C) 500 500 mg PO DAILY 11/17/22 05/29/23 mg tablet multivitamin 1 tablet PO DAILY 11/17/22 05/29/23 pantoprazole 40 mg tablet,delayed 40 mg PO BID 11/17/22 05/29/23 release potassium chloride 20 mEq 40 meq PO BID 11/17/22 05/29/23 tablet,extended release metoprolol succinate 25 mg capsule 25 mg PO DAILY 01/26/23 05/29/23 sprinkle, ext. release 24 hr montelukast 10 mg tablet 10 mg PO DAILY 04/08/23 05/29/23 oxycodone 5 mg tablet 5 mg PO Q8H PRN 7-10 pain 04/08/23 05/29/23 tiotropium bromide 2.5 2 inh inhalation QAM 04/08/23 05/29/23 mcg/actuation mist for inhalation digoxin 62.5 mcg (0.0625 mg) tablet 62.5 mcg PO DAILY 05/28/23 05/29/23 Allergies Allergy/AdvReac Type Severity Reaction Status Date / Time budesonide Allergy Severe Swelling Verified 05/29/23 11:47 [From [facility]] of Lip/Tongue/Throat codeine Allergy Severe Rash Verified 05/29/23 11:47 formoterol Allergy Severe Swelling Verified 05/29/23 11:47 [From [facility]] of Lip/Tongue/Throat glycopyrrolate Allergy Severe Swelling Verified 05/29/23 11:47 [From [facility]] of Lip/Tongue/Throat iron Allergy Intermediate Abdominal Verified 05/29/23 11:47 Pain Review of Systems Review of Systems: All systems reviewed & are unremarkable except as noted in HPI and below Constitutional: Constitutional: Reports no additional constitutional complaints Eyes: Eyes: Reports no additional eye complaints ENT: Reports system reviewed and no additional complaints, except as documented Cardiovascular: Cardiovascular: Reports no additional cardiovascular complaints Respiratory: Respiratory: Reports no additional respiratory complaints Gastrointestinal: Gastrointestinal: Reports no additional gastrointestinal complaints Genitourinary: Genitourinary: Reports no additional female genitourinary complaints Musculoskeletal: Musculoskeletal: Reports no additional musculoskeletal complaints Integumentary/Breasts: Skin/Breast: Reports system reviewed and no additional complaints, except as docu Neurologic: Reports system reviewed and no additional complaints, except as documented Psychiatric: Psychiatric: Reports no additional psychiatric complaints Endocrine: Endocrine: Reports no additional endocrine complaints Hematologic/Lymphatic: Hematologic/Lymphatic: Reports no additional hematologic/lymphatic complaints Allergic/Immunologic: Allergic/Immunologic: Reports no additional allergic/immunologic complaints PMFSH Past Medical History Medical History (Review
[2023-05-29 12:09] LABS: Basophils Absolute Auto 0.05 K/mm3 (0.00-0.10); Basophils Percent Auto 0.6 % (0.0-1.0); Eosinophils Absolute Auto 0.18 K/mm3 (0.02-0.50); Eosinophils Percent Auto 2.3 % (1.0-6.0); Hematocrit 32.6 % (35.0-42.0); Hemoglobin 9.1 g/dL (11.7-13.8); Immature Granulocyte Absolute 0.02 K/mm3 (0.00-0.00); Immature Granulocyte Percent A 0.3 % (0.0-0.0); Lymphocytes Absolute Auto 1.63 K/mm3 (1.10-4.50); Lymphocytes Percent Auto 20.6 % (18.0-42.0); Mean Corpuscular HGB Conc 27.9 g/dL (32.0-36.0); Mean Corpuscular Hemoglobin 23.2 pg (27.0-31.0); Mean Corpuscular Volume 83.2 fL (78.0-102.0); Mean Platelet Volume 10.6 fl (9.2-11.8); Monocytes Percent Auto 11.4 % (2.0-11.0); Neutrophils Absolute Auto 5.1 K/mm3 (1.7-7.2); Neutrophils Percent Auto 64.8 % (50.0-70.0); Platelet Count Result 281 K/mm3 (150-420); Red Blood Count 3.92 M/mm3 (4.20-5.40); Red Cell Distribution Width 24.4 % (11.6-14.4); White Blood Count 7.9 K/mm3 (4.8-10.8)
[2023-05-29] MEDS: FUROSEMIDE INJ 20 MG/2 ML VIAL IV PUSH (12:27)
[2023-05-29] MEDS: dilTIAZem HCl INJ 25 MG/5 ML VIAL 5 MG IV PUSH (12:27)
[2023-05-29 12:36] LABS: Alanine Aminotransferase 18 U/L (14-59); Albumin Level 3.4 g/dL (3.4-5.0); Alkaline Phosphatase 196 U/L (46-116); Anion Gap 5 mmol/L (8-16); Aspartate Amino Transferase 12 U/L (15-37); Bilirubin,Total 1.4 mg/dL (0.00-1.00); Blood Urea Nitrogen 24 mg/dL (7-18); Calcium 9.3 mg/dL (8.5-10.1); Carbon Dioxide 34 mmol/L (21-32); Chloride 98 mmol/L (98-108); Estimated Glomerular Filt Rate 32; Glucose 145 mg/dL (70-99); NT Pro B Type Natriuretic Pept 12142 pg/mL (0-125); Osmolality Calculated 291 mOsm/kg (285-295); Potassium 4.9 mmol/L (3.5-5.1); Sodium 137 mmol/L (136-145); Total Protein 6.6 g/dL (6.4-8.2); Troponin I 23.5 ng/L (0.00-60.4)
[2023-05-29 12:37] LABS: Magnesium 1.9 mg/dL (1.8-2.4)
--- NOTE | 2023-05-29 14:42 | ADMGEN ---
This patient, Flakita Palomares, was admitted to 2nd Floor Room 209-1. Patient/family oriented to hospital policies and general routines including ID bracelet, bed and alarms, visiting hours, pain management, procedures, bathroom and other care routines, personal items, smoking policy, room service/diet, and visiting hours. Information on how to activate the Rapid Response Team has been discussed. Patient/Family are encouraged to report perceived risks to care and to ask questions if they do not understand what they are told or what they should do.
[2023-05-29 15:22] LABS: Add Urine Microscopic? NO; Appearance Urine Clear (Clear); Bilirubin Urine Negative (Negative); Blood Urine Negative (Negative); Color Urine Light Yellow (Yellow); Glucose Urine UA Negative (Negative); Ketones Urine Negative (Negative); Leukocyte Esterase Ur Negative LEU/UL (Negative); Nitrate Urine Negative (Negative); Protein Urine Negative (Negative); Specific Grav Ur 1.015 (1.010-1.020); Urobilinogen Urine 0.2 mg/dL (0.2-1.0)
[2023-05-29] MEDS: POTASSIUM CHLORIDE 20 MEQ ER TABLET 40 MEQ PO (16:58)
[2023-05-29] MEDS: PANTOPRAZOLE 40 MG TABLET PO (16:58)
[2023-05-29] MEDS: FERROUS SULFATE 325 MG TABLET DR PO (16:58)
[2023-05-29] MEDS: LEVALBUTEROL NEB 1.25 MG/3 ML INHALATION ×2 (18:44→23:55)
[2023-05-29] MEDS: traMADol HCL (*CRX) 50 MG TABLET PO (20:47)
[2023-05-29] MEDS: ALPRAZolam (*CRX) 0.25 MG TABLET PO (22:08)
[2023-05-29] MEDS: TIZANIDINE HCL 2 MG TABLET PO (22:08)
[2023-05-30] VITALS (20 sets, daily range): BP systolic 101–124; BP diastolic 69–79; PULSE 63–118; RESP 18–20; TEMP 36.1–36.3; O2SAT 94–100
[2023-05-30] MEDS: traMADol HCL (*CRX) 50 MG TABLET PO ×3 (02:38→21:16)
[2023-05-30 05:34] LABS: Hematocrit 30.5 % (35.0-42.0); Hemoglobin 8.4 g/dL (11.7-13.8); Mean Corpuscular HGB Conc 27.5 g/dL (32.0-36.0); Mean Corpuscular Hemoglobin 23.3 pg (27.0-31.0); Mean Corpuscular Volume 84.7 fL (78.0-102.0); Mean Platelet Volume 10.6 fl (9.2-11.8); Platelet Count Result 255 K/mm3 (150-420); Red Cell Distribution Width 24.2 % (11.6-14.4); White Blood Count 7.5 K/mm3 (4.8-10.8)
[2023-05-30 05:46] LABS: Anion Gap 2 mmol/L (8-16); Blood Urea Nitrogen 23 mg/dL (7-18); Carbon Dioxide 36 mmol/L (21-32); Chloride 99 mmol/L (98-108); Estimated CRCL calculation 25 ml/min; Estimated Glomerular Filt Rate 31; Glucose 102 mg/dL (70-99); Magnesium 1.9 mg/dL (1.8-2.4); Osmolality Calculated 287 mOsm/kg (285-295); Potassium 5.2 mmol/L (3.5-5.1); Sodium 137 mmol/L (136-145)
[2023-05-30] MEDS: LEVALBUTEROL NEB 1.25 MG/3 ML INHALATION ×4 (05:46→23:17)
--- NOTE | 2023-05-30 08:21 | PM.IMHP ---
H&P: HPI History of Present Illness Date/Time: 05/30/23 08:21 Chief Complaint: increased shortness of breath, and increased congestive heart failure, hyperkalemia, tachycardia with AFib and RVR Narrative: This is a 18-year-old who was on home oxygen at home who continues to smoke cigarettes. Patient has had a few days increased shortness of breath with increased leg swelling as well as having to increase her oxygen as she is and not feeling well. Patient was found to have a BNP in the 22,000 with by her primary care provider who recommended that she come over to the emergency room to be seen. Patient has extensive swelling of her legs are painful patient is unable to lay flat as she is requiring to set up in tripod position mild respiratory rest not able to talk complete sentences without shortness of breath patient is on 4-6 L of oxygen per nasal cannula we will continue to do breathing treatments as switch to some Xopenex as patient is in atrial fibrillation with a heart rate in the 90s with increased to the 100s with activity we will IV diurese her have her use incentive spirometry and give her nicotine patch. Patient is compliant she denies any nausea vomiting and/or diarrhea patient has remained afebrile patient potassium is high we will order her some medication and hold her oral potassium and tells she becomes within normal limits. Review of Systems Review of Systems: A-Fib, Shortness of breath, Swelling of bilateral legs, More oxygen than at home All systems reviewed & are unremarkable except as noted in HPI and below PMFSH Past Medical History Medical History Atrial fibrillation AVM (arteriovenous malformation) CHF (congestive heart failure) COPD (chronic obstructive pulmonary disease) HTN (hypertension) Hyperlipemia Overweight Psoriasis Sleep apnea Tobacco dependence Surgical History Surgical History H/O dilation and curettage History of appendectomy History of renal stent Hx of cholecystectomy Hx of hysterectomy Hx of tonsillectomy Family History Family History Mother Family history of chronic obstructive pulmonary disease Other Family history of arthritis Family history of heart disease in male family member before age 55 Hypertension Social History Social History Social History: The patient stated that she quit smoking approximately 5 and half weeks ago. The patient has 3 children. 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 She lives with her . Her is the durable power energy attorney for healthcare. She denies any alcohol marijuana or illicit drugs. She stated that her does continue to smoke cigarettes in front of her. Code status full code Smoking packs per day: 2 Smoking cigarettes per day: 40.0 Years smoked: 58 Smoking pack-years: 116.00 Smoking status: Current some day smoker Tobacco type: cigarettes Second hand tobacco smoke exposure: Yes Smoking end date: 02/09/23 Alcohol intake: former Substance use: current Substance use type: does not use Lack of Transportation: No Lack of Food: Never True Current Housing: I Do Not Have Housing Concerned About Future Housing: No Difficulty Paying Gas/Electric Bills: No Difficulty Paying for Meds: No Currently Unemployed: No Education: High School Diploma/GED Difficulty w/ Childcare or Family Care: No Living arrangements: with family Additional living arrangements comments: Gender identity (if verbalized by the patient): Female Spiritual care concerns: Yes (quaker) Meds Home Medications and Allergies Home Medications Medication Instructions Recorded Confirmed Type rosuvastatin 40 mg tablet (Crestor) 40 mg PO DAILY 08/15/19 05/29/23 His
[2023-05-30] MEDS: ROSUVASTATIN 10 MG TABLET 40 MG PO (10:27)
[2023-05-30] MEDS: PANTOPRAZOLE 40 MG TABLET PO ×2 (10:28→16:59)
[2023-05-30] MEDS: POTASSIUM CHLORIDE 20 MEQ ER TABLET 40 MEQ PO ×2 (10:28→16:59)
[2023-05-30] MEDS: DIGOXIN 62.5 MCG TABLET PO (10:28)
[2023-05-30] MEDS: ASCORBIC ACID 500 MG TABLET PO (10:28)
[2023-05-30] MEDS: FERROUS SULFATE 325 MG TABLET DR PO ×2 (10:29→16:59)
[2023-05-30] MEDS: METOPROLOL SUCCINATE EXT REL 25 MG TABCR PO (10:29)
[2023-05-30] MEDS: MONTELUKAST SODIUM 10 MG TABLET PO (10:29)
[2023-05-30] MEDS: UMECLIDINIUM BROMIDE 62.5 MCG ELLIPTA 1 PUFF INHALATION (10:30)
[2023-05-30] MEDS: MULTIVITAMINS THERAPEUTIC TAB (*BKC) 1 TABLET PO (10:30)
[2023-05-30] MEDS: FUROSEMIDE INJ 20 MG/2 ML VIAL IV PUSH ×2 (10:30→16:58)
[2023-05-30] MEDS: ALPRAZolam (*CRX) 0.25 MG TABLET PO ×2 (13:03→21:16)
--- NOTE | 2023-05-30 13:15 | PC.NURSE ---
Pt struggled with SOB during repositioning from sitting on side of bed to laying in the bed. Reported that she felt like she was going to have a panic attack , xanax given per PRN order, asked if patient would like a fan, oh that would be wonderful . Oscillating fan placed in room.
--- NOTE | 2023-05-30 13:31 | PC.NURSE ---
Pt appears to be resting comfortably now with eyes closed. HR 96 on telemetry.
[2023-05-30] MEDS: TIZANIDINE HCL 2 MG TABLET PO (21:16)
[2023-05-30] MEDS: polyethylene glycoL 3350 17 GM POWD.PACK PO (21:16)
[2023-05-31] VITALS (16 sets, daily range): BP systolic 115–123; BP diastolic 73–85; PULSE 63–120; RESP 16–20; TEMP 36.4–36.6; O2SAT 92–100
[2023-05-31] MEDS: traMADol HCL (*CRX) 50 MG TABLET PO ×2 (04:54→21:12)
[2023-05-31 05:51] LABS: Hematocrit 33.9 % (35.0-42.0); Hemoglobin 9.3 g/dL (11.7-13.8); Mean Corpuscular HGB Conc 27.4 g/dL (32.0-36.0); Mean Corpuscular Hemoglobin 23.6 pg (27.0-31.0); Mean Platelet Volume 10.3 fl (9.2-11.8); Platelet Count Result 276 K/mm3 (150-420); Red Blood Count 3.94 M/mm3 (4.20-5.40); Red Cell Distribution Width 24.2 % (11.6-14.4); White Blood Count 8.6 K/mm3 (4.8-10.8)
[2023-05-31] MEDS: LEVALBUTEROL NEB 1.25 MG/3 ML INHALATION ×3 (06:37→22:19)
[2023-05-31 07:31] LABS: Anion Gap 1 mmol/L (8-16); Blood Urea Nitrogen 22 mg/dL (7-18); Calcium 9.2 mg/dL (8.5-10.1); Carbon Dioxide 36 mmol/L (21-32); Chloride 99 mmol/L (98-108); Estimated CRCL calculation 27 ml/min; Estimated Glomerular Filt Rate 35; Glucose 96 mg/dL (70-99); NT Pro B Type Natriuretic Pept 10737 pg/mL (0-125); Osmolality Calculated 285 mOsm/kg (285-295); Potassium 5.7 mmol/L (3.5-5.1); Sodium 136 mmol/L (136-145)
[2023-05-31] MEDS: ROSUVASTATIN 10 MG TABLET 40 MG PO (09:03)
[2023-05-31] MEDS: UMECLIDINIUM BROMIDE 62.5 MCG ELLIPTA 1 PUFF INHALATION (09:03)
[2023-05-31] MEDS: FUROSEMIDE INJ 20 MG/2 ML VIAL IV PUSH ×2 (09:04→17:05)
[2023-05-31] MEDS: DIGOXIN 62.5 MCG TABLET PO (09:04)
[2023-05-31] MEDS: METOPROLOL SUCCINATE EXT REL 25 MG TABCR PO (09:05)
[2023-05-31] MEDS: MULTIVITAMINS THERAPEUTIC TAB (*BKC) 1 TABLET PO (09:05)
[2023-05-31] MEDS: ASCORBIC ACID 500 MG TABLET PO (09:05)
[2023-05-31] MEDS: MONTELUKAST SODIUM 10 MG TABLET PO (09:05)
[2023-05-31] MEDS: PANTOPRAZOLE 40 MG TABLET PO ×2 (09:06→17:05)
--- NOTE | 2023-05-31 09:30 | PM.IMPN ---
Progress Note: A&P Assessment and Plan (1) CHF (congestive heart failure): Qualifiers: Heart failure chronicity: acute on chronic Heart failure type: unspecified Qualified Code(s): I50.9 - Heart failure, unspecified Code(s): I50.9 - Heart failure, unspecified Status: Acute Assessment and Plan: BNP IV Lasix Following patient's potassium Oxygen (2) CKD (chronic kidney disease): Qualifiers: Chronic kidney disease stage: unspecified stage Qualified Code(s): N18.9 - Chronic kidney disease, unspecified Code(s): N18.9 - Chronic kidney disease, unspecified Status: Acute Assessment and Plan: Avoid any nephrotoxic medications Creatinine 1.48 IV Lasix (3) A-fib: Qualifiers: Atrial fibrillation type: longstanding persistent Qualified Code(s): I48.11 - Longstanding persistent atrial fibrillation Code(s): I48.91 - Unspecified atrial fibrillation Status: Acute Assessment and Plan: Patient on telemetry Patient beta-arnold Patient on anticoagulation (4) CHF (congestive heart failure): Code(s): I50.9 - Heart failure, unspecified Status: Acute (5) Acute hyperkalemia: Code(s): E87.5 - Hyperkalemia Status: Resolved Assessment and Plan: Patient on sodiums Zirconium Hold oral potassium labs draw 1400 today before next dose of medication Subjective Date/time seen: 05/31/23 09:30 Interval history: Patient potassium still high will place on medication to assist with decreasing potassium level . Patient oral potassium is being held at this time and we will continue to monitro patient potassium level next level will be drawn at 1400 today before her next dose of medication is needed. Patient's potassium is in within normal limits at this time we were able to stab the medication she is on decrease her potassium level her oral potassium is still on hold we will review her labs tomorrow before restarting Exam Narrative: GENERAL:Well-appearing, well-nourished, and in no acute distress. HEAD:Normocephalic, atraumatic. EYES: PERRLA and EOMI. ENT: Nares clear, no rhinorrhea or epistaxis. Mucous membranes moist. NECK: Supple. CHEST: Clear to auscultation. No respiratory distress. HEART: Regular rate and rhythm. No murmur heard. Normal peripheral pulses. ABDOMEN: Soft, nontender, nondistended, normal active bowel sounds. EXTREMITIES: Normal range of motion. No edema. SKIN: Warm, dry, no rash. NEURO: No focal deficits. Alert and oriented x3. EURO: No focal deficits. Alert and oriented x3. Objective Data Vital Signs Vital Signs: Vital Signs - 24 hr 05/30/23 10:28 05/30/23 10:29 05/30/23 12:00 Temperature Pulse Rate 110 H 110 H 111 H Respiratory Rate Blood Pressure Pulse Oximetry Oxygen Delivery Oxygen Flow Rate 05/30/23 12:40 05/30/23 12:55 05/30/23 16:35 Temperature Pulse Rate 111 H 118 H 98 Respiratory Rate 18 18 Blood Pressure Pulse Oximetry 99 99 Oxygen Delivery Oxygen Flow Rate 3 3 05/30/23 16:35 05/30/23 18:29 05/30/23 18:39 Temperature 96.9 F L Pulse Rate 98 117 H Respiratory Rate 18 20 20 Blood Pressure 119/79 Pulse Oximetry 94 98 98 Oxygen Delivery Nasal Cannula Oxygen Flow Rate 3 3 3 05/30/23 19:47 05/30/23 23:01 05/30/23 23:01 Temperature 97.3 F L Pulse Rate 105 H 96 115 H Respiratory Rate 20 Blood Pressure 124/78 Pulse Oximetry 97 Oxygen Delivery Nasal Cannula Oxygen Flow Rate 3 05/30/23 23:18 05/30/23 23:24 05/31/23 03:57 Temperature Pulse Rate 90 98 105 H Respiratory Rate 20 20 Blood Pressure Pulse Oximetry 95 95 Oxygen Delivery Oxygen Flow Rate 3 3 05/31/23 06:37 05/31/23 06:56 05/31/23 09:04 Temperature Pulse Rate 63 63 120 H Respiratory Rate 18 18 Blood Pressure Pulse Oximetry 95 95 Oxygen Delivery Oxygen Flow Rate 3 3 05/31/23 09:05
[2023-05-31] MEDS: GABAPENTIN 300 MG CAPSULE PO ×3 (10:09→17:05)
[2023-05-31] MEDS: SODIUM ZIRCONIUM CYCLOSILICATE 5 GM POWD.PACK 10 GM PO ×2 (10:41→15:26)
[2023-05-31 14:55] LABS: Potassium 5.2 mmol/L (3.5-5.1)
--- NOTE | 2023-05-31 17:14 | PC.NURSE ---
Mariano Quiroz, MICROFILM CLERK, notified that patient c/o gas pain. New order received. Also notified that patient still had Potassium ordered. New orders received, hold Potassium for this dose, obtain potassium level at 2100, if lab is WNL d/c Bettynj.
[2023-05-31] MEDS: SIMETHICONE 80 MG TAB.CHEW PO (17:25)
[2023-05-31] MEDS: polyethylene glycoL 3350 17 GM POWD.PACK PO (20:34)
--- NOTE | 2023-05-31 20:38 | PC.NURSE ---
190 Patient changed to Inpatient status.
[2023-05-31] MEDS: TIZANIDINE HCL 2 MG TABLET PO (21:12)
[2023-05-31] MEDS: ALPRAZolam (*CRX) 0.25 MG TABLET PO (21:12)
[2023-05-31 21:25] LABS: Potassium 4.5 mmol/L (3.5-5.1)
[2023-06-01] VITALS (14 sets, daily range): BP systolic 100–115; BP diastolic 72–90; PULSE 78–122; RESP 16–20; TEMP 36.1–36.6; O2SAT 88–97
[2023-06-01] MEDS: traMADol HCL (*CRX) 50 MG TABLET PO (04:35)
--- NOTE | 2023-06-01 05:06 | PC.NURSE ---
This RN gave a specimen cup to the pt. Pt collected a urine sample of a mid-stream catch. This RN brought the sample to the lab, and spoke w/Kirti from the lab, letting her know the specimen was dropped off.
[2023-06-01] MEDS: LEVALBUTEROL NEB 1.25 MG/3 ML INHALATION ×3 (05:19→22:18)
[2023-06-01 05:31] LABS: Appearance Urine Clear (Clear); Bilirubin Urine Negative (Negative); Blood Urine Negative (Negative); Color Urine Light Yellow (Yellow); Glucose Urine UA Negative (Negative); Ketones Urine Negative (Negative); Leukocyte Esterase Ur Negative LEU/UL (Negative); Nitrate Urine Negative (Negative); Protein Urine Negative (Negative)
[2023-06-01 05:34] LABS: Add Urine Microscopic? NO
--- NOTE | 2023-06-01 08:58 | PM.IMPN ---
Progress Note: A&P Assessment and Plan (1) CHF (congestive heart failure): Qualifiers: Heart failure chronicity: acute on chronic Heart failure type: unspecified Qualified Code(s): I50.9 - Heart failure, unspecified Code(s): I50.9 - Heart failure, unspecified Status: Acute Assessment and Plan: BNP significantly elevated IV Lasix Following patient's potassium Oxygen near home settings (2) CKD (chronic kidney disease): Qualifiers: Chronic kidney disease stage: unspecified stage Qualified Code(s): N18.9 - Chronic kidney disease, unspecified Code(s): N18.9 - Chronic kidney disease, unspecified Status: Acute Assessment and Plan: Avoid any nephrotoxic medications Creatinine 1.39 IV Lasix (3) A-fib: Qualifiers: Atrial fibrillation type: longstanding persistent Qualified Code(s): I48.11 - Longstanding persistent atrial fibrillation Code(s): I48.91 - Unspecified atrial fibrillation Status: Acute Assessment and Plan: Patient on telemetry Patient beta-arnold and digoxin Anticoagulation forbidden due to recurrent bleeding GI AVMs (4) Acute hyperkalemia: Code(s): E87.5 - Hyperkalemia Status: Resolved Assessment and Plan: Hold home potassium Recheck 4.7 Mag 1.7 Monitor AM level Plan Continue admission. Hold home potassium. Consider decrease or stopping upon discharge. fluid overload improving. Aim for discharge tomorrow pending stable potassium Time Spent With Patient Time with patient: 25 - 35 minutes Subjective Date/time seen: 06/01/23 08:58 Interval history: Potassium level remains on the high side of normal despite supplemental dosing held. Suspect the patient does not need as aggressive daily replacement as ordered previously. Patient reports improvement in leg swelling but still feeling pretty weak. She reports her breathing is manageable and steady. Patient denies any chest pain palpitations or dizziness. Patient denies fever chills. Review of Systems Review of Systems: All systems reviewed & are unremarkable except as noted in HPI and below Exam Narrative: GENERAL: chronically ill appearing well nourished no acute distress HEAD:Normocephalic, atraumatic. EYES: PERRLA and EOMI. ENT: Nares clear, no rhinorrhea or epistaxis. Mucous membranes moist. NECK: Supple. no JVD CHEST: clear to auscultation, poor air entry, nasal cannula oxygen mild tachypnea with pursed lip breathing which is chronic HEART: mildly tachycardic rate with irregularly irregular rhythm. Loud systolic murmur noted. Normal peripheral pulses. ABDOMEN: Soft, nontender, nondistended, normal active bowel sounds. EXTREMITIES: Normal range of motion. Bilateral lower extremity edema present with erythema of chronic vascular disease, no signs of cellulitis, wounds or drainage SKIN: Warm, dry, no rash. NEURO: No focal deficits. Alert and oriented x3. Objective Data Vital Signs Vital Signs: Vital Signs - 24 hr 05/31/23 09:04 05/31/23 09:05 05/31/23 12:00 Temperature Pulse Rate 120 H 120 H 108 H Respiratory Rate Blood Pressure Pulse Oximetry Oxygen Delivery Oxygen Flow Rate Fraction of Inspired Oxygen 05/31/23 15:45 05/31/23 16:00 05/31/23 16:45 Temperature 36.6 C Pulse Rate 100 100 100 Respiratory Rate 20 18 Blood Pressure 123/77 Pulse Oximetry 92 96 Oxygen Delivery Nasal Cannula Oxygen Flow Rate 3.5 3.5 Fraction of Inspired Oxygen 05/31/23 15:55 05/31/23 19:20 05/31/23 22:20 Temperature Pulse Rate 106 H 104 H 103 H Respiratory Rate 18 18 Blood Pressure Pulse Oximetry 100 96 Oxygen Delivery Oxygen Flow Rate 3.5 3.5 Fraction of Inspired Oxygen 05/31/23 22:26 05/31/23 23:03 05/31/23 23:03 Temperature 36.4 C Pulse Rate 100 98 97 Respiratory Rate 20 20 Blood Pressure 115/73 Pulse Oximetry 96 96 Oxygen Delivery Na
[2023-06-01] MEDS: UMECLIDINIUM BROMIDE 62.5 MCG ELLIPTA 1 PUFF INHALATION (09:30)
[2023-06-01] MEDS: FERROUS SULFATE 325 MG TABLET DR PO ×2 (09:30→16:43)
[2023-06-01] MEDS: DIGOXIN 62.5 MCG TABLET PO (09:30)
[2023-06-01] MEDS: FUROSEMIDE INJ 20 MG/2 ML VIAL IV PUSH ×2 (09:30→16:43)
[2023-06-01] MEDS: MONTELUKAST SODIUM 10 MG TABLET PO (09:31)
[2023-06-01] MEDS: MULTIVITAMINS THERAPEUTIC TAB (*BKC) 1 TABLET PO (09:31)
[2023-06-01] MEDS: ASCORBIC ACID 500 MG TABLET PO (09:31)
[2023-06-01] MEDS: GABAPENTIN 300 MG CAPSULE PO ×3 (09:31→16:43)
[2023-06-01] MEDS: METOPROLOL SUCCINATE EXT REL 25 MG TABCR PO (09:31)
[2023-06-01] MEDS: PANTOPRAZOLE 40 MG TABLET PO ×2 (09:31→16:43)
[2023-06-01] MEDS: ROSUVASTATIN 10 MG TABLET 40 MG PO (09:32)
[2023-06-01 09:38] LABS: Basophils Absolute Auto 0.04 K/mm3 (0.00-0.10); Basophils Percent Auto 0.5 % (0.0-1.0); Eosinophils Absolute Auto 0.08 K/mm3 (0.02-0.50); Hematocrit 31.8 % (35.0-42.0); Hemoglobin 8.7 g/dL (11.7-13.8); Immature Granulocyte Absolute 0.03 K/mm3 (0.00-0.00); Immature Granulocyte Percent A 0.4 % (0.0-0.0); Lymphocytes Absolute Auto 1.41 K/mm3 (1.10-4.50); Lymphocytes Percent Auto 17.2 % (18.0-42.0); Mean Corpuscular HGB Conc 27.4 g/dL (32.0-36.0); Mean Corpuscular Hemoglobin 23.6 pg (27.0-31.0); Mean Corpuscular Volume 86.4 fL (78.0-102.0); Mean Platelet Volume 9.7 fl (9.2-11.8); Monocytes Absolute Auto 0.78 K/mm3 (0.10-0.90); Monocytes Percent Auto 9.5 % (2.0-11.0); Neutrophils Absolute Auto 5.8 K/mm3 (1.7-7.2); Neutrophils Percent Auto 71.4 % (50.0-70.0); Platelet Count Result 242 K/mm3 (150-420); Red Blood Count 3.68 M/mm3 (4.20-5.40); Red Cell Distribution Width 24.3 % (11.6-14.4); White Blood Count 8.2 K/mm3 (4.8-10.8)
[2023-06-01 09:54] LABS: Alanine Aminotransferase 15 U/L (14-59); Albumin Level 3.1 g/dL (3.4-5.0); Alkaline Phosphatase 226 U/L (46-116); Anion Gap 1 mmol/L (8-16); Aspartate Amino Transferase < 10 U/L (15-37); Bilirubin,Total 0.9 mg/dL (0.00-1.00); Blood Urea Nitrogen 19 mg/dL (7-18); Carbon Dioxide 37 mmol/L (21-32); Chloride 96 mmol/L (98-108); Estimated CRCL calculation 28 ml/min; Estimated Glomerular Filt Rate 37; Glucose 159 mg/dL (70-99); Magnesium 1.7 mg/dL (1.8-2.4); Osmolality Calculated 283 mOsm/kg (285-295); Phosphorus 3.9 mg/dL (2.6-4.7); Potassium 4.7 mmol/L (3.5-5.1); Sodium 134 mmol/L (136-145); Total Protein 6.4 g/dL (6.4-8.2)
[2023-06-01] MEDS: SIMETHICONE 80 MG TAB.CHEW PO (13:36)
[2023-06-01] MEDS: TIZANIDINE HCL 2 MG TABLET PO (21:04)
[2023-06-01] MEDS: ALPRAZolam (*CRX) 0.25 MG TABLET PO (21:04)
[2023-06-01] MEDS: polyethylene glycoL 3350 17 GM POWD.PACK PO (21:04)
[2023-06-02] VITALS (9 sets, daily range): BP systolic 117–123; BP diastolic 67–73; PULSE 68–104; RESP 18–20; TEMP 35.9–36.4; O2SAT 92–98
[2023-06-02] MEDS: traMADol HCL (*CRX) 50 MG TABLET PO (04:33)
[2023-06-02 05:26] LABS: Hematocrit 30.1 % (35.0-42.0); Hemoglobin 8.2 g/dL (11.7-13.8); Mean Corpuscular HGB Conc 27.2 g/dL (32.0-36.0); Mean Corpuscular Hemoglobin 23.6 pg (27.0-31.0); Mean Corpuscular Volume 86.5 fL (78.0-102.0); Mean Platelet Volume 10.2 fl (9.2-11.8); Platelet Count Result 236 K/mm3 (150-420); Red Blood Count 3.48 M/mm3 (4.20-5.40); White Blood Count 8.5 K/mm3 (4.8-10.8)
[2023-06-02] MEDS: LEVALBUTEROL NEB 1.25 MG/3 ML INHALATION (05:34)
[2023-06-02 05:37] LABS: Anion Gap 3 mmol/L (8-16); Blood Urea Nitrogen 19 mg/dL (7-18); Calcium 8.9 mg/dL (8.5-10.1); Carbon Dioxide 37 mmol/L (21-32); Chloride 93 mmol/L (98-108); Estimated CRCL calculation 30 ml/min; Estimated Glomerular Filt Rate 39; Glucose 104 mg/dL (70-99); Osmolality Calculated 278 mOsm/kg (285-295); Potassium 4.6 mmol/L (3.5-5.1); Sodium 133 mmol/L (136-145)
--- NOTE | 2023-06-02 06:44 | PC.NURSE ---
On 06/02/23, the PILOT FUEL ENGINEER, [Stephanie Clayton ], provided care and completed [facility] documentation on this patient. I have reviewed the PILOT FUEL ENGINEER's documentation and agree with the findings.
[2023-06-02] MEDS: MULTIVITAMINS THERAPEUTIC TAB (*BKC) 1 TABLET PO (08:22)
[2023-06-02] MEDS: FUROSEMIDE INJ 20 MG/2 ML VIAL IV PUSH (08:22)
[2023-06-02] MEDS: ROSUVASTATIN 10 MG TABLET 40 MG PO (08:22)
[2023-06-02] MEDS: GABAPENTIN 300 MG CAPSULE PO ×2 (08:23→13:48)
[2023-06-02] MEDS: PANTOPRAZOLE 40 MG TABLET PO (08:23)
[2023-06-02] MEDS: ASCORBIC ACID 500 MG TABLET PO (08:23)
[2023-06-02] MEDS: DIGOXIN 62.5 MCG TABLET PO (08:23)
[2023-06-02] MEDS: METOPROLOL SUCCINATE EXT REL 25 MG TABCR PO (08:23)
[2023-06-02] MEDS: UMECLIDINIUM BROMIDE 62.5 MCG ELLIPTA 1 PUFF INHALATION (08:23)
[2023-06-02] MEDS: MONTELUKAST SODIUM 10 MG TABLET PO (08:23)
[2023-06-02] MEDS: TIZANIDINE HCL 2 MG TABLET PO (08:23)
[2023-06-02] MEDS: FERROUS SULFATE 325 MG TABLET DR PO (08:23)
--- NOTE | 2023-06-02 09:08 | PM.DS ---
DS: Admitting Diagnosis Discharge Date 06/02/2023 Admitting Diagnosis atrial fibrillation with RVR, CHF exacerbation, hyperkalemia DS: Discharge Diagnosis Discharge Diagnosis (1) CHF (congestive heart failure): Qualifiers: Heart failure chronicity: acute on chronic Heart failure type: unspecified Qualified Code(s): I50.9 - Heart failure, unspecified Code(s): I50.9 - Heart failure, unspecified Status: Acute (2) CKD (chronic kidney disease): Qualifiers: Chronic kidney disease stage: unspecified stage Qualified Code(s): N18.9 - Chronic kidney disease, unspecified Code(s): N18.9 - Chronic kidney disease, unspecified Status: Acute (3) A-fib: Qualifiers: Atrial fibrillation type: longstanding persistent Qualified Code(s): I48.11 - Longstanding persistent atrial fibrillation Code(s): I48.91 - Unspecified atrial fibrillation Status: Acute (4) Acute hyperkalemia: Code(s): E87.5 - Hyperkalemia Status: Resolved (5) Anemia: Qualifiers: Anemia type: unspecified type Qualified Code(s): D64.9 - Anemia, unspecified Code(s): D64.9 - Anemia, unspecified Status: Acute DS: Summary Hospital Course Reason for hospitalization: patient was admitted for significant lower extremity swelling, CHF exacerbation and hyperkalemia. Patient also has chronic kidney disease and chronic anemia. Hospital Course: Patient was admitted received IV Lasix for fluid overload. With supplemental potassium was held and patient received Lokelma on the 1st day of hospitalization. After Lokelma and holding home dosing of potassium, her potassium level remained stable low on the high side of normal. Today patient is breathing better still has lower extremity swelling but it is improved over admission. She feels a little stronger today than yesterday. Better air movement is noted on exam. Patient will be discharged with instructions to stop home medication of potassium and have BMP redrawn in 1 week with results to primary care. Appointment should be scheduled for primary care hospitalization follow-up visit after labs are drawn. Discussed these discharge instructions with patient and her . He states that he retired early so he could help take care of her and he is able to make sure she gets her labs redrawn and follow-up appointment with primary care. Status at Discharge Cognitive/behavioral status at discharge: Awake alert oriented and pleasant Functional status at discharge: uses cane/walker Overall status at discharge: patient is progressing back to baseline Time Spent with Patient Time attestation: Total time spent providing and/or coordinating discharge services: 45 mins Time spent: Greater than 30 minutes Exam Narrative: GENERAL: chronically ill appearing well nourished no acute distress HEAD:Normocephalic, atraumatic. EYES: PERRLA and EOMI. ENT: Nares clear, no rhinorrhea or epistaxis. Mucous membranes moist. NECK: Supple. no JVD CHEST: clear to auscultation, improved air entry, nasal cannula oxygen HEART: normal rate with irregularly irregular rhythm. Loud systolic murmur noted. Normal peripheral pulses. ABDOMEN: Soft, nontender, nondistended, normal active bowel sounds. EXTREMITIES: Normal range of motion. Bilateral lower extremity edema present with erythema of chronic vascular disease, no signs of cellulitis, wounds or drainage SKIN: Warm, dry, no rash. NEURO: No focal deficits. Alert and oriented x3. DS: Data Data Completed and Pending Completed studies during hospitalization: chest x-ray Labs on day of discharge: Labs from last 24 hours 06/02/23 06/01/23 05:15 09:32 WBC 8.5 8.2 RBC 3.48 L 3.68 L Hgb 8.2 L 8.7 L Hct 30.1 L 31.8 L MCV 86.5 86.4 MCH 23.6 L 23.6 L MCHC 27.2 L 27.4 L RDW 24.0 H 24.3 H Plt Count 236 242 MPV 10.2 9.7 Immature Gran % (Auto) 0.4 H Neut % (A
--- NOTE | 2023-06-02 10:40 | PC.NURSE ---
This nurse walked into the room to check on patient status at 1020, patient was attempting to have BM on commode. Patient noted to be leaning to the right and diaphoretic. PRODUCT SPECIALIST notified immediatly of patient condition. Patient able to state name, very pale. This nurse and PRODUCT SPECIALIST Dm transferred patient from commode to chair. Vital signs obtained 1025 see flow chart, blood sugar obtained 214. IV site started to left forearm, 1035 Zofran 4mg given per order and 1040 NS at 999ml/hr started for 500ml bolus. Patients grasps bilaterally strong, no facial deficits noted. Vital signs will continue to be monitored.
--- NOTE | 2023-06-02 14:25 | PC.NURSE ---
Patient discharging home. All belongings gathered together and sent home with patient. IV sited removed, tip intact. Dressing applied to site. All discharge instructions and education reviewed with patient and spouse, both state understanding. Patient transported to front door via wheelchair, left via private vehicle with spouse. Patient denies any questions at discharge.
--- NOTE | 2023-06-08 08:28 | PC.NURSE ---
discharge call back completed, doing ok, having some pain in knees, using gabapentin and tramadol as needed, to f/u with PMD on june 09, advised to return for any issues, states did receive discharge information from nurses and understood
== END 2023-06-02 14:25 | disposition home health service (06) | DRG 291 ==
LOC: CHSED 12:44 → CHS2ND 13:29
PROVIDERS: Nurse Practitioner; Nurse Practitioner Family; Admitting Provider Internal Medicine; Emergency Provider Emergency Medicine; PCP Family Medicine; Visit Provider Internal Medicine
DX: I13.0 Hypertensive heart and chronic kidney disease with heart failure and stage 1 through stage 4 chronic kidney disease, or unspecified chronic kidney disease (principal); I50.43 Acute on chronic combined systolic (congestive) and diastolic (congestive) heart failure; I48.11 Longstanding persistent atrial fibrillation; N18.9 Chronic kidney disease, unspecified; E87.5 Hyperkalemia; F17.210 Nicotine dependence, cigarettes, uncomplicated; K31.819 Angiodysplasia of stomach and duodenum without bleeding; J44.9 Chronic obstructive pulmonary disease, unspecified; E78.5 Hyperlipidemia, unspecified; G47.33 Obstructive sleep apnea (adult) (pediatric); Z99.81 Dependence on supplemental oxygen
CPT/HCPCS: 36415; 71046; 80048; 80053; 81003; 83735; 83880; 84100; 84132; 84484; 85025; 85027; 93005; 94640; 96374; 96375; 96376; 99285; A9270; G0378; J1940

== ENCOUNTER 2023-06-09 10:46 | Outpatient (CLI) | payer OTHER, MEDICARE, SELFPAY ==
[2023-06-09 11:02] LABS: Hematocrit 36.5 % (35.0-42.0)
[2023-06-09 11:20] LABS: Anion Gap 4 mmol/L (8-16); Blood Urea Nitrogen 13 mg/dL (7-18); Calcium 9.6 mg/dL (8.5-10.1); Carbon Dioxide 41 mmol/L (21-32); Chloride 94 mmol/L (98-108); Estimated Glomerular Filt Rate 56; Glucose 92 mg/dL (70-99); Osmolality Calculated 288 mOsm/kg (285-295); Potassium 3.9 mmol/L (3.5-5.1); Sodium 139 mmol/L (136-145)
[2023-06-09 12:23] LABS: Uric Acid 4.4 mg/dL (2.6-6.0)
== END 2023-06-09 10:47 | disposition home or self-care (01) ==
LOC: CHSLAB 10:48
PROVIDERS: PCP Nurse Practitioner Family; Visit Provider Nurse Practitioner Family
DX: M25.562 Pain in left knee (principal); D64.9 Anemia, unspecified
CPT/HCPCS: 36415; 80048; 84550; 85014; 85018